=== PATIENT | male | born 1970 | race African-American/Black ===

== ENCOUNTER 2016-12-27 12:26 | Observation (INO) | payer BC, OTHER ==
[2016-12-27 12:32] VITALS: BMI 23.8
--- NOTE | 2016-12-27 12:57 | PDOC ---
History of Present Illness - General Chief Complaint: Pain Stated Complaint: SOB, RT LEG PAIN Time Seen by Provider: 12/27/16 12:40 History Source: Patient - History of Present Illness Timing/Duration: other Severity: moderate Associated Symptoms: reports: shortness of breath. denies: chest pain, fever/ chills Past History - Past Medical History Allergies/Adverse Reactions: Allergies Allergy/AdvReac Type Severity Reaction Status Date / Time acetaminophen [From Tylenol] Allergy Severe Difficulty Verified 12/27/16 12:32 Breathing aspirin Allergy Severe Difficulty Verified 12/27/16 12:32 Breathing hydromorphone HCl Allergy Severe Difficulty Verified 12/27/16 12:32 [From Dilaudid] Breathing ibuprofen Allergy Severe Swelling Verified 12/27/16 12:32 ketorolac tromethamine Allergy Severe Swelling Verified 12/27/16 12:32 [From Toradol] oxycodone HCl [From Percocet] Allergy Severe Swelling Verified 12/27/16 12:32 Penicillins Allergy Severe Swelling Verified 12/27/16 12:32 tramadol HCl [From Ultram] Allergy Verified 12/27/16 12:32 Home Medications: Ambulatory Orders Albuterol Sulfate Inhaler - [Ventolin HFA Inhaler -] 1 - 2 inh PO QID 07/17/14 Metoprolol Tartrate [Lopressor -] 100 mg PO BID 07/17/14 Asthma: Yes Cardiac Disorders: Yes (mitral valve prolapse) HTN: Yes Other medical history: DVT, - Surgical History Cardiac Surgery: Yes (ALONZO FILTER x2) - Immunization History Immunization Up to Date: Yes - Psycho/Social/Smoking Cessation Hx Anxiety: No Suicidal Ideation: No Smoking Status: No Smoking History: Never smoked Have you smoked in the past 12 months: No Number of Cigarettes Smoked Daily: 0 Hx Alcohol Use: No Drug/Substance Use Hx: No Substance Use Type: None Hx Substance Use Treatment: No Review of Systems - Review of Systems Constitutional: No: Chills, Fever Respiratory: Yes: Shortness of Breath Cardiac (ROS): No: Chest Pain, Lightheadedness, Palpitations ABD/GI: No: Nausea, Vomiting *Physical Exam - Vital Signs Last Vital Signs Temp Pulse Resp BP Pulse Ox 97.6 F 82 20 167/102 100 12/27/16 12:28 12/27/16 12:28 12/27/16 12:28 12/27/16 12:28 12/27/16 12:28 - Physical Exam General Appearance: Yes: Appropriately Dressed. No: Apparent Distress HEENT: positive: Normal Voice Neck: positive: Supple Respiratory/Chest: positive: Lungs Clear, Normal Breath Sounds. negative: Respiratory Distress Cardiovascular: positive: Regular Rate, S1, S2 Gastrointestinal/Abdominal: positive: Soft. negative: Tender Extremity: positive: Tender (to R groin, no swelling, no calf tenderness) Integumentary: positive: Dry, Warm, Other (pedal pulses intact) Neurologic: positive: Fully Oriented, Alert, Normal Mood/Affect Heart Score/ECG Review - ECG Intrepretation Comment:: 12/27/16 16:23 Twelve-lead EKG was performed and reviewed by me. There is normal sinus rhythm with a normal rate. The axis is normal. The intervals are normal. There are no ST or T wave abnormalities. Impression: Normal twelve-lead EKG ED Treatment Course - LABORATORY CBC & Chemistry Diagram: 12/27/16 14:20 12/27/16 14:20 - RADIOLOGY Radiology Studies Ordered: Category Date Time Status CHEST X-RAY PORTABLE* [RAD] Stat Radiology 12/27/16 12:41 Ordered Medical Decision Making - Medical Decision Making 12/27/16 12:51 46 yo M, h/o asthma, HTN, MVP, protein S and C deficiency, Factor 5 Leiden, recurrent DVTs and PEs, s/p IVC and SVC filters, endorses known DVT to R groin and states he had an "indeterminate VQ scan" (allergic to IV dye) 3 weeks ago during admission in [place], states he is not currently on anticoagulant secondary to GI bleed in the past and follows up with hematology at [place], now presents with pain to right groin since yesterday, no trauma. Denies h/o similar pain. Reports brief e/o sob while getting off bus today that has since resolved. No chest pain or palpitations. See exam R groin pain H/o prot C&S deficiency, DVT/PE, s/p IVC/SVC filters Not on AC 2/2 GIB Exam only remarkable for minimal ttp to R groin R/o recurrent DVT -US -labs Sob today Since improved Endorses "indeterminate" VQ scan 3 weeks ago at OSH Has filters in place Stable w/ clear chest/lungs on exam Suspicion for PE low at this point Will discuss further w/u with ED attg 12/27/16 14:30 12/27/16 15:35 12/27/16 15:38 US demonstrates R femoral vein stenosis but no definite DVT. Trop 0.06 w/ normal EKG. Will get 2nd trop in 6 hrs as d/w ED attg. Pt remains stable w/ no CP or SOB at this time. Anticipate discharge w/ vasc and hematology f/u 12/27/16 16:40 As per ED attg, given elevated trop and brief sob earlier, states pt should be admitted to obs to telemetry and serial trops 12/27/16 16:43 12/27/16 16:59 Case d/w hospitalist and pt admitted to tele/obs *DC/Admit/Observation/Transfer Diagnosis at time of Disposition: Vein stenosis, Shortness of breath - Discharge Dispostion Condition at time of disposition: Stable Admit: Yes - Referrals Referrals: Americo Wesley MD [Primary Care Provider] - - Patient Instructions Additional Instructions: Your right femoral vein shows stenosis on US today but no DVT. Please continue to f/u with your vascular and hematology doctors
[2016-12-27 14:36] LABS: EOSINOPHIL 5.8 % (0-4.5); MCH 23.4 pg (25.7-33.7)
[2016-12-27 14:38] LABS: BASOPHIL 1.4 % (0-2.0); MCHC 32.4 g/dl (32.0-35.9); MEAN CELL VOLUME 72.3 fl (80-96); MEAN PLT VOLUME 13.7 fl (7.5-11.1); RDW 18.6 % (11.9-15.9); WHITE BLOOD COUNT 3.7 K/mm3 (4.0-10.0)
[2016-12-27 14:59] LABS: INR 1.12 (0.82-1.09); PROTHROMBIN TIME (PATIENT) 12.3 SEC (9.98-11.88)
[2016-12-27 15:15] LABS: ALBUMIN 3.4 g/dl (3.4-5.0); ALK PHOS 95 U/L (45-117); ANION GAP 12 (8-16); BILIRUBIN,TOTAL 0.2 mg/dL (0.2-1.0); CALCIUM 8.3 mg/dL (8.5-10.1); CO2 23 mmol/L (21-32); CREATININE 0.8 mg/dL (0.7-1.3); GLUCOSE,RANDOM 80 mg/dL (74-106); SGOT/AST 25 U/L (15-37); SGPT/ALT 21 U/L (12-78); TOT PROT 8.4 g/dl (6.4-8.2)
[2016-12-27 15:17] LABS: TROPONIN I 0.06 ng/ml (0.00-0.05)
[2016-12-27 16:58] LABS: PLATELET COUNT 109 K/MM3 (134-434); PLATELET ESTIMATE DECREASED (NORMAL)
--- NOTE | 2016-12-27 17:18 | PDOC ---
*Physical Exam - Vital Signs Last Vital Signs Temp Pulse Resp BP Pulse Ox 97.6 F 82 20 167/102 100 12/27/16 12:28 12/27/16 12:28 12/27/16 12:28 12/27/16 12:28 12/27/16 12:28 ED Treatment Course - LABORATORY CBC & Chemistry Diagram: 12/27/16 14:20 12/27/16 14:20 - ADDITIONAL ORDERS Additional order review: Laboratory Results 12/27/16 12/27/16 12/27/16 14:20 14:20 13:30 INR 1.12 Sodium 137 Potassium 3.7 Chloride 102 Carbon Dioxide 23 Anion Gap 12 BUN 15 D Creatinine 0.8 Creat Clearance w eGFR > 60 Random Glucose 80 Calcium 8.3 L Total Bilirubin 0.2 D AST 25 D ALT 21 D Alkaline Phosphatase 95 Creatine Kinase 432 H D CK-MB (CK-2) 3.786 H Troponin I 0.06 H D Total Protein 8.4 H Albumin 3.4 Stool Occult Blood Negative 12/27/16 14:20 RBC 4.86 MCV 72.3 L MCHC 32.4 RDW 18.6 H D MPV 13.7 H D Neutrophils % 48.0 D Lymphocytes % 28.5 D Monocytes % 16.3 H Eosinophils % 5.8 H D Basophils % 1.4 - RADIOLOGY Radiology Studies Ordered: Category Date Time Status CHEST X-RAY PORTABLE* [RAD] Stat Radiology 12/27/16 12:41 Completed DUPLEX VASCUL US-1 LEG [US] Stat Ultrasound 12/27/16 13:09 Completed Medical Decision Making - Medical Decision Making 12/27/16 17:17 Pt refusing to be admitted, states 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 Please continue to f/u with your vascular and hematology doctors - Post Discharge Activity
--- NOTE | 2016-12-27 19:02 | PN ---
Teaching Attending Note Name of Resident: Josue Marinelli ATTENDING PHYSICIAN STATEMENT I saw and evaluated the patient. I reviewed the resident's note and discussed the case with the resident. I agree with the resident's findings and plan as documented. SUBJECTIVE: poor historian. had pain in R groin yesterday, he called his PCP but did not get an appointment . He called Dr. Wesley this am , who advised he should come to ER. coming from the bus on his way to ER he developed CP in middle of chest that was sharp , lasted 45 min . ( but he says the pain is still there ) . he denies any cough , fever chills, abd pain , dysuria , diarrhea , or other problems . denies exertional cp his SOB has resolved. He wants pain meds OBJECTIVE: NAD , comfortable in bed , MMM, eating dinner , cataract seen in L eye , EOMI CV: RRR, no MRG Lungs : CATB Abd :Soft , NT, ND , NL BS Ext : tenderness in R groin, no erythema or edema , no LAP . 2+ femoral pulses b/l . No edema on LE ext . chronic venous changes in LE. thick scared skin in wrists. radial pulse 2+ b/l ASSESSMENT AND PLAN: 46 y/o man with h/o Prtein C, S deficiency, facter V meleen def, h/o PEs and DVTs , s/p IVC and SVC filters , not on AC due to GI bleed, h/o HTN , and chronic pain who presented to ER fro R groin pain , onhis way he developed CP and SOB . 1- Cp and SOB . atypical for ACS . EKG with no ischemic changes. 1st trop 0.06 with no elevation in CkMb . despite his hx , PE is low in DDX and less likely as he has no tachycardia, hypotension , hypoxia , or tachypnea . His EKG has no S1QT3 sign . MS is in DDX - with this low clinical suspicion for PE , Will check D dimer. if elevated will order VQ scan - will check 2 more trop , and reepat EKG - tele 2- R groin pain : US with no acute DVT but stenosis in R common fem vein. This could be due to previous DVTs there is tenderness i groin but no erythema or masses felt . he has 2+ pulses - will consult Dr. Wesley to evaluate 3- HTN : lopressor 100 BID 4- PAin: will not give any pain meds as he has drug seeking behavious ( also allergic to tylenol, advil, ultram, morphine and dilaudid ) 5- DVT PX heparin sq .
[2016-12-27 20:33] VITALS: BP 162/97; PULSE 75; TEMP 98.1
--- NOTE | 2016-12-27 21:22 | HOSP ---
Subjective - Review of Symptoms Subjective: Spoke to pt. regarding signing out against medical advice States he will not stay if we do not give him Demerol for chest pain I told him this is NOT in the chest pain protocol I told him Risks of signing out AMA is possible cardiac arrest HE at that point started to yell and get up out of his chair almost lunging I told him that I will speak to him in a calm manner For my safety I left the room along with the resident and scribe. I told the nurse video manager of the situation and the possible need to call security. Physical Examination Vital Signs: Vital Signs Temperature 98.1 F 12/27/16 20:30 Pulse Rate 75 12/27/16 20:30 Respiratory Rate 19 12/27/16 20:30 Blood Pressure 162/97 12/27/16 20:30 O2 Sat by Pulse Oximetry (%) 98 12/27/16 20:30
--- NOTE | 2016-12-27 21:27 | HOSP ---
Physical Examination Vital Signs: Vital Signs Temperature 98.1 F 12/27/16 20:30 Pulse Rate 75 12/27/16 20:30 Respiratory Rate 19 12/27/16 20:30 Blood Pressure 162/97 12/27/16 20:30 O2 Sat by Pulse Oximetry (%) 98 12/27/16 20:30 Hospitalist Encounter Assessment: Was paged by the nurse to inform me that patient has chest pain of 9/10 intensity. Went to examine the patient immediately. Patient complained of severe chest pain, sharp in quality, 9/10 in intensity, non radiating, non reproducible, aggravated on movement and on deep inspiration. Denies sob, palpitation, cough, abdominal pain, nausea or vomiting. Patient said that he would like to get Meperidine for chest pain. 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 Vitals:- BP-132/85 mmHg P- 82bpm RR-14 Temp-97F Spo2-96% Physical Examination:- General: Patient lying comfortably in bed, awake, alert, oriented x 3 in no acute distress HEENT: Left eye cataract, EOM intact, No pallor, muddy sclera Chest: Surgical scar gina on the right side of the chest, no tenderness on palpation, B/L equal air entry, no wheeze or crackles. CVS: Regular rate, S1, S2, no murmur Abdomen: Soft, non tender, no organomegaly Informed Dr Rosas and examined the patient together. Patient mentioned that he has chest pain now and has had chest pain in the past. A/c to the patient, he goes to his appliance tester Dr. Membreno, in [place], when he has the chest pain, and the doctor would say "Go home, and take Meperidine for chest pain". Patient said his father who lives in [place] told him to leave the hospital and to go to his regular appliance tester. Patient mentioned "Nobody cares for my chest pain" He started getting aggressive when told Meperidine is not used for chest pain and is not a part of chest pain protocol. Patient started raising his voice demanding he needs Meperidine and was trying to get up from his chair, saying he wants to sign out AMA. That is when my attending along with the medical case worker left he room for safety. We emphasized to him the risk of leaving the hospital with active chest pain, could be worse like cardiac arrest, [place]. The assistant in nursing was informed and to call the security if needed. Illness, Investigation and Plan of care was explained to the patient. He verbalized understanding and signed out AMA. Case seen and discussed with Dr. Rosas. Visit type - Emergency Visit Emergency Visit: Yes ED Registration Date: 12/27/16 Care time: The patient presented to the Emergency Department on the above date and was hospitalized for further evaluation of their emergent condition. - New Patient This patient is new to me today: Yes Date on this admission: 12/27/16 - Critical Care Critical Care patient: No
[2016-12-27] MEDS ORDERED: HEPARIN NA (PORCINE) 5,000 UNITS/ML 1ML VIAL SQ SCH (22:00)
--- NOTE | 2016-12-28 07:23 | DS ---
Physical Examination Vital Signs: Findings/Remarks: pt was not seen or examined this am as he left AMA last night . Discharge Summary Reason For Visit: VEIN STENOSIS,SOB Hospital Course: Dc diagnoses : 1- chest pain and SOB 2- R groin pain ,with evidence of R femoral vein stenosis Hospital course : 46 y/o man with h/o Prtein C, S deficiency, facter V liden def, h/o PEs and DVTs , s/p IVC and SVC filters , not on AC due to GI bleed, h/o HTN , and chronic pain who presented to ER for R groin pain , on his way to the ER he developed CP and SOB . His Cp and SOB was thought to be atypical for ACS . EKG with no ischemic changes. 1st and 2nd trop were 0.06 with no elevation in CkMb . despite his hx , PE was though to be low in DDX and less likely as he has no tachycardia, hypotension , hypoxia , or tachypnea . His EKG has no S1QT3 sign . and the patient HAd shown a drug seeking behaviour . the plan was to check D dimer , if positive to go for a VQ scan . but he actually left AMA before this happened. ( of note he is allergic to IV dye ) For his R groin pain , he had US in ER with no acute DVT but stenosis in R common fem vein. This could be due to previous DVTs Dr. Wesley was consulted buthe did not get to see the pt before he left LAst night ( the night of the admission ) , he decided to leave AMA , although thte risks were explained to him by night team . condition: stable dispo : Home AMA F/u : PCP in [place], and DR. Wesley Condition: Stable - Instructions Diet, Activity, Other Instructions: Your right femoral vein shows stenosis on US today but no DVT. Please continue to f/u with your vascular and hematology doctors Referrals: Americo Wesley MD [Primary Care Provider] - Disposition: AGAINST MEDICAL ADVICE - Home Medications Comprehensive Discharge Medication List: Ambulatory Orders Albuterol Sulfate Inhaler - [Ventolin HFA Inhaler -] 1 - 2 inh PO QID 07/17/14 Metoprolol Tartrate [Lopressor -] 100 mg PO BID 07/17/14 This patient is new to me today: No Emergency Visit: Yes ED Registration Date: 12/27/16 Care time: The patient presented to the Emergency Department on the above date and was hospitalized for further evaluation of their emergent condition. Critical Care patient: No - Discharge Referral Referred to [facility] No
--- NOTE | 2016-12-28 09:34 | EKG ---
Test Reason : Blood Pressure : / mmHG Vent. Rate : 076 BPM Atrial Rate : 076 BPM P-R Int : 154 ms QRS Dur : 086 ms QT Int : 400 ms P-R-T Axes : 078 017 036 degrees QTc Int : 450 ms NORMAL SINUS RHYTHM WHEN COMPARED WITH ECG OF 17-FEB-2015 19:46, NO SIGNIFICANT CHANGE WAS FOUND Confirmed by NBA MIGUEL MD ([id number]) on 12/28/2016 9:34:04 AM Referred By: Confirmed By:NBA MIGUEL MD
== END 2016-12-27 21:30 | disposition left against medical advice (07) ==
LOC: JER 12:26 → JERBED 17:05 → J4W 21:13
PROVIDERS: ADMIT Internal Medicine; ATTEND Internal Medicine
DX: I87.1 Compression of vein (principal); R07.9 Chest pain, unspecified; D68.59 Other primary thrombophilia; D68.2 Hereditary deficiency of other clotting factors; Z86.718 Personal history of other venous thrombosis and embolism; I10 Essential (primary) hypertension; I34.1 Nonrheumatic mitral (valve) prolapse
CPT/HCPCS: 36415; 71010-TC; 80053; 82272; 82550; 82553; 84484; 85025; 85610; 93005; 93010; 93971-TC; 99282-25; G0378

== ENCOUNTER 2019-01-06 07:05 | Emergency (ER) | payer BC ==
[2019-01-06 07:50] VITALS: BP 164/98; PULSE 97; TEMP 98.3; BMI 23.8
--- NOTE | 2019-01-06 09:15 | PDOC ---
History of Present Illness - General Chief Complaint: Revisit,Wound Recheck Stated Complaint: SENT BY PCP FOR ABSCESS Time Seen by Provider: 01/06/19 07:45 History Source: Patient Exam Limitations: No Limitations - History of Present Illness Initial Comments: 01/06/19 09:00 48-year-old male presents to ED for evaluation of right shoulder wound. Patient states was at [facility] where he had left because they were not giving him antibiotics and felt he needed to come here where his surgeon is, Dr. Wesley. Patient denies fever but states chills patient also states minimal drainage from the site. Patient currently with a PICC line and was on an outpatient IV infusion program acquaints but states he has no way to get there. Patient denies limited range of motion of his right arm, swelling of the arm, or weakness. Timing/Duration: other Severity: mild Associated Symptoms: reports: fever/chills (chills) Past History - Travel Traveled outside of the country in the last 30 days: No Close contact w/someone who was outside of country & ill: No - Past Medical History Allergies/Adverse Reactions: Allergies Allergy/AdvReac Type Severity Reaction Status Date / Time acetaminophen [From Tylenol] Allergy Severe Difficulty Verified 01/06/19 07:26 Breathing aspirin Allergy Severe Difficulty Verified 01/06/19 07:26 Breathing hydromorphone HCl Allergy Severe Difficulty Verified 01/06/19 07:26 [From Dilaudid] Breathing ibuprofen Allergy Severe Swelling Verified 01/06/19 07:26 ketorolac tromethamine Allergy Severe Swelling Verified 01/06/19 07:26 [From Toradol] oxycodone HCl [From Percocet] Allergy Severe Swelling Verified 01/06/19 07:26 Penicillins Allergy Severe Swelling Verified 01/06/19 07:26 tramadol HCl [From Ultram] Allergy Verified 01/06/19 07:26 Home Medications: Ambulatory Orders Albuterol Sulfate Inhaler - [Ventolin HFA Inhaler -] 1 - 2 inh PO QID 07/17/14 Metoprolol Tartrate [Lopressor -] 100 mg PO BID 07/17/14 Asthma: Yes Cardiac Disorders: Yes (mitral valve prolapse) COPD: No HTN: Yes Other medical history: picc line for abx - Surgical History Cardiac Surgery: Yes (ALONZO FILTER x2) - Immunization History Immunization Up to Date: Yes - Suicide/Smoking/Psychosocial Hx Smoking Status: No Smoking History: Never smoked Have you smoked in the past 12 months: No Number of Cigarettes Smoked Daily: 0 Information on smoking cessation initiated: No Hx Alcohol Use: No Drug/Substance Use Hx: No Substance Use Type: None Hx Substance Use Treatment: No Patient Lives Alone: Yes Lives with/in: lives alone Review of Systems - Review of Systems Able to Perform ROS?: Yes Constitutional: Yes: Chills HEENTM: No: Symptoms Reported Respiratory: No: Symptoms reported Cardiac (ROS): No: Symptoms Reported ABD/GI: No: Symptoms Reported : No: Symptoms Reported Musculoskeletal: Yes: Muscle Pain (right deltoid) Integumentary: No: Erythema Neurological: No: Symptoms reported Endocrine: No: Symptoms Reported Hematologic/Lymphatic: Yes: See HPI *Physical Exam - Vital Signs Last Vital Signs Temp Pulse Resp BP Pulse Ox 98.3 F 97 H 16 164/98 100 01/06/19 07:22 01/06/19 07:22 01/06/19 07:22 01/06/19 07:22 01/06/19 07:22 - Physical Exam General Appearance: Yes: Nourished, Appropriately Dressed. No: Apparent Distress HEENT: negative: Pale Conjunctivae Neck: positive: Supple Respiratory/Chest: positive: Lungs Clear, Normal Breath Sounds. negative: Respiratory Distress, Accessory Muscle Use Cardiovascular: positive: Regular Rhythm, Regular Rate. negative: Murmur Gastrointestinal/Abdominal: positive: Soft. negative: Tenderness Integumentary: positive: Other (no edema) Neurologic: positive: Motor Strength 5/5 (ambulatory) Moderate Sedation - Procedure Monitoring Vital Signs: Procedure Monitoring Vital Signs Temperature 98.3 F 01/06/19 07:22 Pulse Rate 97 H 01/06/19 07:22 Respiratory Rate 16 01/06/19 07:22 Blood Pressure 164/98 01/06/19 07:22 O2 Sat by Pulse Oximetry (%) 100 01/06/19 07:22 Medical Decision Making - Medical Decision Making 01/06/19 08:30 Chief complaint patient requesting Dr. Wesley an IV antibiotics upon ED arrival. Patient with history of right arm abscess over the deltoid muscle has an IV infusion program in [place]. Exam: (Wound to the right deltoid with no palpable fluctuance or increased warmth suggestive of cellulitis or drainable abscess Plan: Labs secondary to complaints of chills and heart rate of 97. Patient also ordered for consultation to Dr. Wesley. 01/06/19 09:13 Attending was able to contact the IV infusion program in [place] who states patient may come to the program today to receive his IV antibiotics for the wound. Patient requesting medication transportation. Awaiting results. Patient currently eating breakfast resting in chair 01/06/19 09:33 *DC/Admit/Observation/Transfer Diagnosis at time of Disposition: Wound, open, arm, upper - Discharge Dispostion Disposition: HOME Condition at time of disposition: Good - Referrals - Patient Instructions Printed Discharge Instructions: DI for Wound Infection Additional Instructions: Please go directly to the program as instructed. Please keep area clean and dry. - Post Discharge Activity
== END 2019-01-06 10:00 | disposition home or self-care (01) ==
LOC: JER 07:05
DX: S41.101A Unspecified open wound of right upper arm, initial encounter (principal); X58.XXXA Exposure to other specified factors, initial encounter; Y93.9 Activity, unspecified; Y92.89 Other specified places as the place of occurrence of the external cause; Y99.8 Other external cause status; I10 Essential (primary) hypertension; J45.909 Unspecified asthma, uncomplicated; I05.0 Rheumatic mitral stenosis; Z95.828 Presence of other vascular implants and grafts
CPT/HCPCS: 99281-25

== ENCOUNTER 2019-06-27 16:51 | Emergency (ER) | payer BC | END 2019-06-27 21:20 | disposition home or self-care (01) | LOC: JER 16:51 ==

== ENCOUNTER 2019-10-04 13:15 | Emergency (ER) | payer BC ==
[2019-10-04 13:19] VITALS: BP 151/71; PULSE 78; TEMP 98.2; BMI 23.8
--- NOTE | 2019-10-04 14:07 | PDOC ---
History of Present Illness - General Chief Complaint: Respiratory Stated Complaint: DIFFICULTY BREATHING Time Seen by Provider: 10/04/19 13:47 Past History - Past Medical History Allergies/Adverse Reactions: Allergies Allergy/AdvReac Type Severity Reaction Status Date / Time acetaminophen [From Tylenol] Allergy Severe Difficulty Verified 10/04/19 13:17 Breathing aspirin Allergy Severe Difficulty Verified 10/04/19 13:17 Breathing hydromorphone HCl Allergy Severe Difficulty Verified 10/04/19 13:17 [From Dilaudid] Breathing ibuprofen Allergy Severe Swelling Verified 10/04/19 13:17 ketorolac tromethamine Allergy Severe Swelling Verified 10/04/19 13:17 [From Toradol] oxycodone HCl [From Percocet] Allergy Severe Swelling Verified 10/04/19 13:17 Penicillins Allergy Severe Swelling Verified 10/04/19 13:17 tramadol HCl [From Ultram] Allergy Verified 10/04/19 13:17 Home Medications: Ambulatory Orders Albuterol Sulfate Inhaler - [Ventolin HFA Inhaler -] 1 - 2 inh PO QID 07/17/14 Metoprolol Tartrate [Lopressor -] 100 mg PO BID 07/17/14 Asthma: Yes Cardiac Disorders: Yes (mitral valve prolapse) COPD: No HTN: Yes Other medical history: DVT - Surgical History Cardiac Surgery: Yes (ALONZO FILTER x2) - Immunization History Immunization Up to Date: Yes - Psycho Social/Smoking Cessation Hx Smoking Status: No Smoking History: Never smoked Have you smoked in the past 12 months: No Number of Cigarettes Smoked Daily: 0 Hx Alcohol Use: No Drug/Substance Use Hx: No Substance Use Type: None Hx Substance Use Treatment: No *Physical Exam - Vital Signs Last Vital Signs Temp Pulse Resp BP Pulse Ox 98.2 F 78 22 H 151/71 98 10/04/19 13:16 10/04/19 13:16 10/04/19 13:16 10/04/19 13:16 10/04/19 13:16 Heart Score/ECG Review - ECG Intrepretation Rhythm: Regular Rhythm - [place]: Normal - ECG Impressions Normal ECG: Yes Non-specific ST Elevation: No Ischemic Changes: No Bradycardia: No Torsades rylan Pointes: No WPW: No Medical Decision Making - Medical Decision Making 10/04/19 14:08 HPI: 48M PMH DVT s/p IVC filters, factor V leiden, and asthma presenting with sudden onset SOB that started after he got off transit 20 minutes prior. States pleuritic chest pain. Denies palpitations, f/c, lightheadedness, dizziness, abd pain, n/v. Pt states that he has bi-weekly episodes of SOB. ROS: CONSTITUTIONAL: Denies F / C HEENT: Denies headache, lightheadedness, dizziness RESP: Denies SOB CARD: Endorses pleuritic pain. Denies palpitations GI: Denies N / V / D, abdominal pain, bloody stool, inability to tolerate PO SKIN: Denies rashes NEURO: Denies numbness, tingling, weakness PE: SaO2 98% GEN: NAD, comfortable. AAOx3 HEENT: NC/AT, EOMI, PERRLA. No facial asymmetry. Moist mucous membranes. Normal voice. Supple neck w/ FROM CV: S1/S2, RRR, no m/r/g LUNG: Normal respiratory rate and effort on room air. CTAB, no wheezes, crackles , rales, rhonchi GI: soft, ndnt, +BS, no guarding, no rebound. No masses. Neg CVAT b/l EXTREMITIES: No LE edema. No calf tenderness. No obvious deformities of all extremities SKIN: warm, dry, normal turgor PSYCH: Guarded NEURO: Moving all extremities well. Ambulating w/ normal gait. MDM: 48M c/o SOB. Has bi-weekly episodes. Saturating well on room air w/ normal respiratory effort. Pt has care at [facility] home w/ close PCP, hematology, and pulmonary f/u, return precautions 10/04/19 15:52 pt still in ED refer to Dr. Corina Jones. Discharge - Discharge Information Problems reviewed: Yes Clinical Impression/Diagnosis: Shortness of breath Condition: Unchanged/Unknown Disposition: HOME - Admission No - Follow up/Referral Referrals: [facility] [place] [Provider Group] - Call tomorrow Izaiah Arriaga MD [Staff Physician] - - Patient Discharge Instructions Patient Printed Discharge Instructions: DI for Shortness of Breath Additional Instructions: Based on your history of deep vein thrombosis / pulmonary embolism you should be on daily anticoagulation. Follow up with your Data Processing Systems Consultant within 1 day. Follow up with your Plant Mechanic within 1 day. Follow up with your Primary Care Doctor within 1 day. Immediately return to the nearest Emergency Department if you experience worsening or concerning symptoms. - Post Discharge Activity
--- NOTE | 2019-10-04 14:52 | PDOC ---
Attending Attestation - Resident Resident Name: David Perez - ED Attending Attestation I have performed the following: I have examined & evaluated the patient, The case was reviewed & discussed with the resident, I agree w/resident's findings & plan - HPI HPI: 10/04/19 14:46 48-year-old male with history of hypercoagulable syndromes with DVT and PE in the past requiring anticoagulation most recently on daily doses of Alixtra, insurance stopped covering it, and his primary care docs/specialists from [facility] and [facility] have instructed him to go to [facility] ERs for his daily doses of alixtra. Pt's last dose was 3d ago, he was riding the bus and upon exiting felt acute on chronic shortness of breath, so he presents here. upon arrival, has no complaints. chronic pain, but no sob. no f/c/cough. after evaluation, pt requested to sign out AMA to go to his specialists' hospitals at [facility] or [facility]. - Physicial Exam PE: 10/04/19 14:50 vss, rr 16 speaking full sentences and jokin with staff. o2 sat 100% on room air , HR normal no jvd heart regular, lungs clear nvi distally - Medical Decision Making 10/04/19 14:50 48-year-old male with known hypercoagulable disorders, DVTs, PEs requiring lifelong anticoagulation currently under the care of vascular surgery at [facility] and pulmonary and hematology at [facility], unfortunately obtaining his blood thinner through emergency departments, presents now with bleeding episode of shortness of breath, resolved. He is hemodynamically stable here and well-appearing, ambulating about the emergency department speaking full sentences and joking with staff, he is asymptomatic and well- appearing. No indication for emergent work-up given known diagnoses Patient requests to be discharged so he can follow-up at his specialist hospitals for his dose of blood thinner and continued outpatient care Declined pain medication here or a/c Agrees with plan, will proceed directly to his specialist hospital, refuses to be transferred, understands return criteria. 10/04/19 14:57 pt subsequently opted to receive lovenox here, which was previously given in May visit without issue. also given oxycodone (allergy is to tylenol, not oxycodone). he has taken percocet in the past without reaction. Heart Score/ECG Review #1 ECG reviewed & interpreted by me at: 14:25 General ECG Interpretation: Sinus Rhythm, Normal Rate (69), Normal Intervals ( qtc 437), No acute ischemic changes
[2019-10-04] MEDS ORDERED: ENOXAPARIN NA (PORCINE) 100 MG/1 ML DISP.SYRIN SQ ONE ×2 (14:56→14:59)
[2019-10-04] MEDS ORDERED: oxyCODONE HCL 5 MG TABLET PO ONE (14:56)
[2019-10-04] MEDS ORDERED: oxyCODONE HCL 5 MG TABLET ONE (14:59)
--- NOTE | 2019-10-04 15:49 | EKG ---
Test Reason : Blood Pressure : / mmHG Vent. Rate : 069 BPM Atrial Rate : 069 BPM P-R Int : 158 ms QRS Dur : 088 ms QT Int : 408 ms P-R-T Axes : 060 012 049 degrees QTc Int : 437 ms POOR DATA QUALITY, INTERPRETATION MAY BE ADVERSELY AFFECTED NORMAL SINUS RHYTHM NORMAL ECG WHEN COMPARED WITH ECG OF 27-JUN-2019 18:31, NO SIGNIFICANT CHANGE WAS FOUND Confirmed by MD Lorenzo, Ryan ([id number]) on 10/04/2019 3:49:21 PM Referred By: Confirmed By:Ryan Ventura MD
== END 2019-10-04 15:07 | disposition home or self-care (01) ==
LOC: JER 13:15
PROC: 3E023GC Introduction of Other Therapeutic Substance into Muscle, Percutaneous Approach (ICD-10-PCS; principal; 2019-10-04)
DX: R06.02 Shortness of breath (principal); I10 Essential (primary) hypertension; D68.51 Activated protein C resistance; J45.909 Unspecified asthma, uncomplicated; Z86.711 Personal history of pulmonary embolism; Z86.718 Personal history of other venous thrombosis and embolism; Z79.01 Long term (current) use of anticoagulants; I34.1 Nonrheumatic mitral (valve) prolapse; Z95.828 Presence of other vascular implants and grafts; Z88.0 Allergy status to penicillin; Z88.5 Allergy status to narcotic agent; Z88.6 Allergy status to analgesic agent
CPT/HCPCS: 93005; 93010; 96372; 99281-25

== ENCOUNTER 2020-05-31 08:29 | Inpatient (IN) | payer BC, OTHER ==
--- NOTE | 2020-05-31 08:38 | PDOC ---
History of Present Illness - General Chief Complaint: Chest Pain Stated Complaint: CHEST PAIN Time Seen by Provider: 05/31/20 08:37 History Source: Patient Exam Limitations: No Limitations - History of Present Illness Initial Comments: 05/31/20 08:39 48yM PMH DVTs and PE s/p IVC filters off anticoagulation, factor V leiden, Protein C/S deficiency, and asthma presenting w sudden onset R sharp chest pain and SOB after stepping off public transit at 745am this morning. Request m orphine or hydromorphone to treat pain, says he's allergic (throat swelling) to multiple other meds inc tylenol, NSAIDs, and IV contrast. Hasn't taken any meds for symptoms before arriving in ED. States he gets PE when he's off anticoagulation. Shown copy of US study w +RLE clot from 05/12/20. Pt's vascular surgeon (name unknown, notes he associated w [facility] across the street from the hospital) ordered pt not to take Arixtra (fondaparinux) for the past 4wks, reason unknown. Also doesn't remember irradiated fuel handler name. Also has worsening BLE pain attributed to peripheral vascular disease following w vascular. Denies fever, cough, n/v, ABD pain. Past History - Medical History Allergies/Adverse Reactions: Allergies Allergy/AdvReac Type Severity Reaction Status Date / Time acetaminophen [From Tylenol] Allergy Severe Difficulty Verified 05/31/20 08:33 Breathing aspirin Allergy Severe Difficulty Verified 05/31/20 08:33 Breathing hydromorphone HCl Allergy Severe Difficulty Verified 05/31/20 08:33 [From Dilaudid] Breathing ibuprofen Allergy Severe Swelling Verified 05/31/20 08:33 ketorolac tromethamine Allergy Severe Swelling Verified 05/31/20 08:33 [From Toradol] oxycodone HCl [From Percocet] Allergy Severe Swelling Verified 05/31/20 08:33 Penicillins Allergy Severe Swelling Verified 05/31/20 08:33 tramadol HCl [From Ultram] Allergy Verified 05/31/20 08:33 Home Medications: Ambulatory Orders Albuterol Sulfate Inhaler - [Ventolin HFA Inhaler -] 1 - 2 inh PO QID 07/17/14 Metoprolol Tartrate [Lopressor -] 50 mg PO BID 07/17/14 Morphine Sulfate 15 mg PO DAILY PRN 05/31/20 Asthma: Yes Cardiac Disorders: Yes (mitral valve prolapse) COPD: No HTN: Yes - Surgical History Cardiac Surgery: Yes (ALONZO FILTER x2) - Immunization History Immunization Up to Date: Yes - Psycho-Social/Smoking History Smoking Status: No Smoking History: Never smoked Have you smoked in the past 12 months: No Number of Cigarettes Smoked Daily: 0 Review of Systems - Review of Systems Constitutional: No: Chills, Fever HEENTM: No: Eye Pain, Ear Discharge Respiratory: Yes: Shortness of Breath. No: Cough Cardiac (ROS): Yes: Chest Pain. No: Lightheadedness ABD/GI: No: Abdominal Distended, Constipated, Diarrhea, Nausea, Vomiting : No: Burning, Flank Pain Musculoskeletal: No: Back Pain, Joint Pain Integumentary: No: Bruising, Dryness Neurological: No: Headache, Seizure Psychiatric: No: Anxiety, Depression Endocrine: No: Intolerance to Cold, Intolerance to Heat Hematologic/Lymphatic: No: Anemia, Blood Clots *Physical Exam - Vital Signs Last Vital Signs Temp Pulse Resp BP Pulse Ox 98.4 F 82 18 148/89 99 05/31/20 08:30 05/31/20 13:00 05/31/20 13:00 05/31/20 13:00 05/31/20 13:00 - Physical Exam General Appearance: Yes: Nourished, Appropriately Dressed, Mild Distress HEENT: positive: EOMI, ANA MARÍA, Normal Voice, Hearing Grossly Normal. negative: Scleral Icterus (R), Scleral Icterus (L) Respiratory/Chest: positive: Chest Tender (R chest), Lungs Clear, Normal Breath Sounds. negative: Crackles, Rales, Rhonchi, Stridor, Wheezing Cardiovascular: positive: Regular Rhythm, S1, S2, Tachycardia. negative: Edema, Murmur Vascular Pulses: Dorsalis-Pedis (R): 1+, Doralis-Pedis (L): 1+ Gastrointestinal/Abdominal: positive: Normal Bowel Sounds, Flat, Soft. negative: Tender, Organomegaly Extremity: positive: Other (BLE flaking skin, warm, exquisitely tender to touch, +1 rosalba pitting edema to ankles, not numb) Integumentary: positive: Warm Neurologic: positive: Fully Oriented, Alert ED Treatment Course - LABORATORY CBC & Chemistry Diagram: 05/31/20 12:10 05/31/20 12:10 - ADDITIONAL ORDERS Additional order review: Laboratory Results 05/31/20 05/31/20 12:10 12:10 PT with INR 13.30 H INR 1.13 H PTT (Actin FS) 27.0 Sodium 133 L Potassium 4.2 Chloride 104 Carbon Dioxide 24 Anion Gap 4 L BUN 12.7 Creatinine 0.9 Est GFR (CKD-EPI)AfAm 115.83 Est GFR (CKD-EPI)NonAf 99.94 Random Glucose 74 Calcium 8.2 L Total Bilirubin 0.4 AST 41 H ALT 22 Alkaline Phosphatase 80 Creatine Kinase 425 H Creatine Kinase Index 0.6 CK-MB (CK-2) 2.6 Troponin I < 0.02 Total Protein 9.3 H Albumin 2.7 L 05/31/20 12:10 RBC 4.40 MCV 67.3 L MCHC 30.5 L RDW 20.3 H MPV 11.4 H D Neutrophils % 53.6 Lymphocytes % 24.5 Monocytes % 15.1 H Eosinophils % 3.3 Basophils % 3.5 H - RADIOLOGY Radiology Studies Ordered: Category Date Time Status CHEST - PA [RAD] Routine Radiology 05/31/20 13:25 Ordered CHEST X-RAY PORTABLE* [RAD] Stat Radiology 05/31/20 09:39 Completed DUPLEX VASCUL US-2LEGS [US] Stat Ultrasound 05/31/20 15:36 Ordered - Medications Given in the ED: ED Medications Discontinued Medications Generic Name Dose Route Start Last Admin Trade Name Freq PRN Reason Stop Dose Admin Lidocaine/Prilocaine 1 applic 05/31/20 09:53 05/31/20 10:02 Emla - TP 05/31/20 09:54 1 applic ONCE ONE Administration Methylprednisolone 32 mg 05/31/20 09:58 05/31/20 13:32 Medrol - PO 05/31/20 09:59 Not Given ONCE ONE Methylprednisolone 32 mg 05/31/20 10:45 05/31/20 11:00 Medrol - PO 05/31/20 10:46 32 mg ONCE ONE Administration Metoprolol Tartrate 50 mg 05/31/20 09:55 05/31/20 10:00 Lopressor - PO 05/31/20 09:56 50 mg ONCE ONE Administration Morphine Sulfate 4 mg 05/31/20 12:46 05/31/20 12:50 Morphine Injection - IVPUSH 05/31/20 12:47 4 mg ONCE ONE Administration Sodium Chloride 500 ml 05/31/20 12:01 05/31/20 12:00 Normal Saline - IV 05/31/20 12:02 500 ml ONCE ONE Administration Medical Decision Making - Medical Decision Making 05/31/20 09:15 EKG - sinus tachycardia, RBBB, HR 106, QTc 464, no ST changes CXR - no acute pathology CK 425 --- 48yM PMH DVTs and PE s/p IVC filters off anticoagulation, factor V leiden, Protein C/S deficiency, and asthma presenting w sudden onset R sharp chest pain and SOB after stepping off public transit at 745am Pain likely MSK (pain w palpation), mild rhabdo. Cannot r/o PE (pt off anticoagulation, recent +DVT study). Low concern for ACS (pain not exertional, neg trop) vs PNA (clear lungs) Pt refused tylenol, NSAIDs d/t allergies. Pt agreed to be admitted for PE r/o Given home lopressor, premedication w 32 solumedrol Has trouble with peripheral US guided IV access d/t thick skin, did not attempt IJ CVC d/t hx of IJ clots. Placed R calf PIV Consulted Dr Alcantar vascular - hasn't seen pt in years, denies taking pt off AC Dr Dotson - order echo, DVT US rosalba legs, anticoagulate for now, no V/Q scan needed lela Maru - order fondaparinux 7.5 qD Admitted m/s for chest pain, possible PE Discharge - Discharge Information Problems reviewed: Yes Clinical Impression/Diagnosis: Chest pain Qualifiers: Chest pain type: unspecified Qualified Code(s): R07.9 - Chest pain, unspecified - Follow up/Referral - Patient Discharge Instructions - Post Discharge Activity
[2020-05-31] MEDS ORDERED: LIDOCAINE 2.5%/PRILOCAINE 2.5% (5 Gram/TUBE) TP ONE ×2 (09:53→09:56)
[2020-05-31] MEDS ORDERED: METOPROLOL TARTRATE 50 MG TABLET (FP) PO ONE (09:55)
[2020-05-31] MEDS ORDERED: methylPREDNISolone 8 MG TABLET PO ONE (09:58)
[2020-05-31] MEDS ORDERED: METOPROLOL TARTRATE 50 MG TABLET (FP) ONE (10:03)
[2020-05-31] MEDS ORDERED: methylPREDNISolone 4 MG TABLET PO ONE (10:45)
--- NOTE | 2020-05-31 11:32 | PDOC ---
Documentation entered by Liset Camacho SCRIBE, acting as scribe for Kelly Boyce MD. Kelly Boyce MD: This documentation has been prepared by the Aicha bustillos Nirvannie, SCRIBE, under my direction and personally reviewed by me in its entirety. I confirm that the documentation accurately reflects all work, treatment, procedures, and medical decision making performed by me. Attending Attestation - Resident Resident Name: Jose Mariano - ED Attending Attestation I have performed the following: I have examined & evaluated the patient, The case was reviewed & discussed with the resident, I agree w/resident's findings & plan, Exceptions are as noted - HPI HPI: 05/31/20 09:39 The patient is a 48 year old male with a significant past medical history of DVTs/PE (s/p IVC filters not on anticoagulation, known DVT RLE 05/12/20), Factor V Leiden, Protein C/S deficiency, and asthma who presents to the ED with sudden onset right sided chest pain with associated shortness of breath. As per patient , her symptoms onset this morning at approximately 7:45am after coming off public transportation. Patient was recently placed on Arixtra by his vascular surgeon for unknown regions. Allergies: As per nursing notes. - Physicial Exam PE: 05/31/20 10:51 Agree with resident exam. Patient is alert and oriented and in no acute distress. Lungs are clear. Heart regular rate and rhythm, no murmurs. B/L LE--+ skin changes consistent with vascular insufficiency, + bilateral diffuse tenderness without swelling. - Medical Decision Making 05/31/20 10:53 Pt presents to the ED complaining of chest pain and shortness of breath that is consistent with prior episodes of PE. Patient has a longstanding history of DVT and PE, resistant to anticoagulation. History of HIT, has been on arixtra in the past. States that he has not been able to get his arixtra because his reporting consultant is on vacation. Patient has multiple visits to the ED and a history of leaving AMA and eloping. Has DVT on US from 05/12 on LLE. Differential includes PE, ACS. Plan is for labs and VQ scan. Patient is an extremely hard stick and we have been unable to get IV access despite multiple attempts by multiple physicians. History of severe allergy to IV contrast. Will check labs and VQ scan, likely admit to medicine for likely PE. 05/31/20 11:20 05/31/20 11:29 Discharge - Discharge Information Problems reviewed: Yes Clinical Impression/Diagnosis: Chest pain Qualifiers: Chest pain type: unspecified Qualified Code(s): R07.9 - Chest pain, unspecified Condition: Stable Disposition: AGAINST MEDICAL ADVICE - Follow up/Referral - Patient Discharge Instructions - Post Discharge Activity
[2020-05-31] MEDS ORDERED: SODIUM CHLORIDE 0.9% 500 ML INFUS.BAG IV ONE (12:01)
[2020-05-31 12:31] LABS: INR 1.13 (0.83-1.09); PROTHROMBIN TIME (PATIENT) 13.3 SEC (9.7-13.0)
[2020-05-31] MEDS ORDERED: morphine CARPU-JECT 4 MG/1 ML DISP.SYRIN IVPUSH ONE ×2 (12:46→15:37)
[2020-05-31 12:50] LABS: ALBUMIN 2.7 g/dl (3.4-5.0); ALK PHOS 80 U/L (45-117); ANION GAP 4 MMOL/L (8-16); BILIRUBIN,TOTAL 0.4 mg/dL (0.2-1); BLOOD UREA NITROGEN 12.7 mg/dL (7-18); CALCIUM 8.2 mg/dL (8.5-10.1); CHLORIDE 104 mmol/L (98-107); CO2 24 mmol/L (21-32); CREATININE 0.9 mg/dL (0.55-1.3); GLUCOSE,RANDOM 74 mg/dL (74-106); POTASSIUM 4.2 mmol/L (3.5-5.1); SGOT/AST 41 U/L (15-37); SGPT/ALT 22 U/L (13-61); SODIUM 133 mmol/L (136-145); TOT PROT 9.3 g/dl (6.4-8.2)
[2020-05-31] MEDS ORDERED: morphine SULFATE 4 MG/ML VIAL ONE (13:00)
[2020-05-31 13:11] LABS: BASO % 3.5 % (0-2.0); EOS % 3.3 % (0-4.5); HEMATOCRIT 29.6 % (35.4-49); LYMPH % 24.5 % (8-40); MCH 20.5 pg (25.7-33.7); MCHC 30.5 g/dl (32.0-35.9); MEAN CELL VOLUME 67.3 fl (80-96); MEAN PLT VOLUME 11.4 fl (7.5-11.1); MONO % 15.1 % (3.8-10.2); NEUT % 53.6 % (42.8-82.8); PLATELET COUNT 123 K/MM3 (134-434); RDW 20.3 % (11.9-15.9); WHITE BLOOD COUNT 3.7 K/mm3 (4.0-10.0)
[2020-05-31 13:30] LABS: ANISOCYTOSIS 1+; MACROCYTOSIS 0; PLATELET ESTIMATE DECREASED
[2020-05-31] MEDS ORDERED: FONDAPARINUX SODIUM 5 MG/0.4 ML DISP.SYRIN SQ SCH (15:15)
--- NOTE | 2020-05-31 15:24 | HP ---
CHIEF COMPLAINT: chest pain PCP: [facility] HISTORY OF PRESENT ILLNESS: 49M w/ pmhx of DVT/PE (has IVC filter), protein C/S deficiency, Factor V Leiden, and asthma presents in the ED with sudden onset non-radiating substernal chest pain and shortness of breath. States he was stepping off public transit when his symptoms acutely started. Of note, he was supposed to be Arixtra for AC given his significant PE history, however has been having insurance problems and was unable to obtain his meds. States he was seen last week at another ED in [place], [place], was able to receive his AC. He was also seen at another ED 2 days ago which he also was able to receive AC. Pt has a recent LE duplex with report showing L common femoral DVT. Also states he had an echo done at [facility] that showed R heart strain. ER course was notable for: (1) Initial VS wnl, trops neg x1, HD stable (2) CXR neg (3) Pulm, Heme consulted Recent Travel: Denies PAST MEDICAL HISTORY: As per HPI PAST SURGICAL HISTORY: IVC filter Social History: Smoking: Denies Alcohol: Denies Drugs: Denies Allergies acetaminophen [From Tylenol] Allergy (Severe, Verified 05/31/20 08:33) Difficulty Breathing aspirin Allergy (Severe, Verified 05/31/20 08:33) Difficulty Breathing hydromorphone HCl [From Dilaudid] Allergy (Severe, Verified 05/31/20 08:33) Difficulty Breathing ibuprofen Allergy (Severe, Verified 05/31/20 08:33) Swelling ketorolac tromethamine [From Toradol] Allergy (Severe, Verified 05/31/20 08:33) Swelling oxycodone HCl [From Percocet] Allergy (Severe, Verified 05/31/20 08:33) Swelling Penicillins Allergy (Severe, Verified 05/31/20 08:33) Swelling tramadol HCl [From Ultram] Allergy (Verified 05/31/20 08:33) HOME MEDICATIONS: Home Medications Medication Instructions Recorded Albuterol Sulfate Inhaler - 1 - 2 inh PO QID 07/17/14 [Ventolin HFA Inhaler -] Metoprolol Tartrate [Lopressor -] 50 mg PO BID 07/17/14 Morphine Sulfate 15 mg PO DAILY PRN 05/31/20 REVIEW OF SYSTEMS CONSTITUTIONAL: Absent: fever, chills, diaphoresis, generalized weakness, malaise, loss of appetite, weight change HEENT: Absent: rhinorrhea, nasal congestion, throat pain, throat swelling, difficulty swallowing, mouth swelling, ear pain, eye pain, visual changes CARDIOVASCULAR: chest pain Absent: syncope, palpitations, irregular heart rate, lightheadedness, peripheral edema RESPIRATORY: shortness of breath Absent: cough, , dyspnea with exertion, orthopnea, wheezing, stridor, hemoptysis GASTROINTESTINAL: Absent: abdominal pain, abdominal distension, nausea, vomiting, diarrhea, constipation, melena, hematochezia GENITOURINARY: Absent: dysuria, frequency, urgency, hesitancy, hematuria, flank pain, genital pain MUSCULOSKELETAL: b/l LE pain Absent: myalgia, arthralgia, joint swelling, back pain, neck pain SKIN: Absent: rash, itching, pallor HEMATOLOGIC/IMMUNOLOGIC: Absent: easy bleeding, easy bruising, lymphadenopathy, frequent infections ENDOCRINE: Absent: unexplained weight gain, unexplained weight loss, heat intolerance, cold intolerance NEUROLOGIC: Absent: headache, focal weakness or paresthesias, dizziness, unsteady gait, seizure, mental status changes, bladder or bowel incontinence PSYCHIATRIC: Absent: anxiety, depression, suicidal or homicidal ideation, hallucinations. PHYSICAL EXAMINATION Vital Signs - 24 hr 05/31/20 05/31/20 08:30 13:00 Temperature 98.4 F Pulse Rate 108 H Pulse Rate [ 82 Apical] Respiratory 21 H 18 Rate Blood Pressure 187/105 H Blood Pressure 148/89 [Right Arm] O2 Sat by Pulse 96 99 Oximetry (%) GENERAL: AAOx3. NAD. HEENT: AT/NC. EOMI. Dry mucus membranes. NECK: Normal range of motion, supple without lymphadenopathy, JVD, or masses. LUNGS: CTA B/L, No wheezes noted. HEART: RRR. Normal S1, S2. ABDOMEN: Soft, NT/ND. Normoactive Bs. MUSCULOSKELETAL: Moves all extremities EXTREMITIES: No peripheral edema noted. +Sienna's sign NEUROLOGICAL: Cranial nerves II-XII intact. Normal speech. SKIN: Dry dark scaly skin on b/l LE, peeling. No ulcers noted. Tenderness to b/l LE Laboratory Results - last 24 hr 05/31/20 05/31/20 05/31/20 12:10 12:10 12:10 WBC 3.7 L RBC 4.40 Hgb 9.0 L Hct 29.6 L D MCV 67.3 L MCH 20.5 L D MCHC 30.5 L RDW 20.3 H Plt Count 123 L MPV 11.4 H D Absolute Neuts (auto) 2.0 Neutrophils % 53.6 Lymphocytes % 24.5 Monocytes % 15.1 H Eosinophils % 3.3 Basophils % 3.5 H Nucleated RBC % 0 Hypochromia 1+ Platelet Estimate Decreased Polychromasia 0 Poikilocytosis 0 Anisocytosis 1+ Microcytosis 1+ Macrocytosis 0 PT with INR 13.30 H INR 1.13 H PTT (Actin FS) 27.0 Sodium 133 L Potassium 4.2 Chloride 104 Carbon Dioxide 24 Anion Gap 4 L BUN 12.7 Creatinine 0.9 Est GFR (CKD-EPI)AfAm 115.83 Est GFR (CKD-EPI)NonAf 99.94 Random Glucose 74 Calcium 8.2 L Total Bilirubin 0.4 AST 41 H ALT 22 Alkaline Phosphatase 80 Creatine Kinase 425 H Creatine Kinase Index 0.6 CK-MB (CK-2) 2.6 Troponin I < 0.02 Total Protein 9.3 H Albumin 2.7 L ASSESSMENT/PLAN: 49M w/ pmhx of DVT/PE (has IVC filter), protein C/S deficiency, Factor V Leiden, and asthma presents in the ED with sudden onset non-radiating substernal chest pain and shortness of breath admitted for PE. #PE; in setting of hx of DVT/PE (s/p filter), multiple blood clotting disorders, noncompliance with AC -Wells Score for PE 9; given high suspicion of PE will need to treat empirically -Unable to do CTA chest due to contrast allergy. Per pulm, V/Q not needed at this time -Heme consulted; recommend to give Arixtra -Pulm consulted; do not suspect hemodynamically significant PE or SVC obstruction as patient BP stable and not hypoxic -Echo ordered to r/o R heart strain #Chronic Venous Stasis; r/o PVD -Vasc surg consulted #Hx of Protein C/S deficiency, Factor V Leiden; now with PE. -cont AC -OP follow up #Prophylaxis DVT: Cont Arixtra #FEN -PO hydration -recheck lytes in AM -Regular diet Dispo -admit to tele -meds to be reconciled by pharmacy (was closed when I called) Visit type - Emergency Visit Emergency Visit: Yes ED Registration Date: 05/31/20 Care time: The patient presented to the Emergency Department on the above date and was hospitalized for further evaluation of their emergent condition. - New Patient This patient is new to me today: Yes Date on this admission: 05/31/20 - Critical Care Critical Care patient: No ATTENDING PHYSICIAN STATEMENT I saw and evaluated the patient. I reviewed the resident's note and discussed the case with the resident. I agree with the resident's findings and plan as documented. SUBJECTIVE: OBJECTIVE: ASSESSMENT AND PLAN:
[2020-05-31] MEDS ORDERED: MORPHINE SULFATE 2 MG/ML VIAL ONE (15:51)
--- NOTE | 2020-05-31 16:05 | CON.PULM ---
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 Wesley),, supposed asthma (only on PRN Albuterol), and HTN. Reports being maintained on Arixtra. Apparently having insurance issues and has not had access to his medications for almost 2 weeks. Outside Doppler study that reveals left common femoral DVT (05/12/2020). No fever or chills. No reported COVID19 infection or exposure. Admitted via the ER due to CP. No hemoptysis. Patient seen in the ER comfortable on RA. He does not have tachycardia. At present he is CP free. Reports that he is unsure if his symptoms are related to AE of Asthma. - History Source History Provided By: Patient, Medical Record Limitations to Obtaining History: No Limitations - Past Medical History Pulmonary: Yes: Asthma (h/o astma-not currently symptomatic), Bronchitis, Pneumonia, Pulmonary Embolus. 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 History of Recent Travel: Yes ([place]) Home Medications - Allergies Allergies/Adverse Reactions: Allergies Allergy/AdvReac Type Severity Reaction Status Date / Time acetaminophen [From Tylenol] Allergy Severe Difficulty Verified 05/31/20 08:33 Breathing aspirin Allergy Severe Difficulty Verified 05/31/20 08:33 Breathing hydromorphone HCl Allergy Severe Difficulty Verified 05/31/20 08:33 [From Dilaudid] Breathing ibuprofen Allergy Severe Swelling Verified 05/31/20 08:33 ketorolac tromethamine Allergy Severe Swelling Verified 05/31/20 08:33 [From Toradol] oxycodone HCl [From Percocet] Allergy Severe Swelling Verified 05/31/20 08:33 Penicillins Allergy Severe Swelling Verified 05/31/20 08:33 tramadol HCl [From Ultram] Allergy Verified 05/31/20 08:33 - Home Medications Home Medications: Ambulatory Orders Albuterol Sulfate Inhaler - [Ventolin HFA Inhaler -] 1 - 2 inh PO QID 07/17/14 Metoprolol Tartrate [Lopressor -] 50 mg PO BID 07/17/14 Morphine Sulfate 15 mg PO DAILY PRN 05/31/20 Review of Systems - Review of Systems Constitutional: reports: Malaise. denies: Chills, Fever, Night Sweats, Unintentional Wgt. Loss Eyes: reports: No Symptoms HENT: reports: No Symptoms Neck: reports: No Symptoms Cardiovascular: reports: Chest Pain. denies: Edema, Palpitations Respiratory: reports: Cough, SOB, SOB on Exertion, Wheezing. denies: Hemoptysis, Orthopnea, PND, Snoring Gastrointestinal: reports: No Symptoms Genitourinary: reports: No Symptoms Breasts: reports: No Symptoms Reported Musculoskeletal: reports: Back Pain, Extremity Pain, Joint Pain, Joint Swelling, Muscle Pain, Muscle Cramps, Muscle Weakness Integumentary: reports: Change in Color Neurological: reports: No Symptoms Endocrine: reports: No Symptoms Hematology/Lymphatic: reports: No Symptoms Psychiatric: reports: No Symptoms Physical Exam Vital Sings: Vital Signs Temperature 98.4 F 05/31/20 08:30 Pulse Rate 82 05/31/20 13:00 Respiratory Rate 18 05/31/20 13:00 Blood Pressure 148/89 05/31/20 13:00 O2 Sat by Pulse Oximetry (%) 99 05/31/20 13:00 Constitutional: Yes: No Distress, Calm Eyes: Yes: Conjunctiva Clear, EOM Intact HENT: Yes: Atraumatic, Normocephalic Neck: Yes: Supple Cardiovascular: Yes: Regular Rate and Rhythm Respiratory: Yes: Cough, Diminished. No: Accessory Muscle Use, On Nasal O2, Rales, Rhonchi, SOB, SOB on Exertion, Stridor, Tachypnea, Wheezes ...Inspection: Yes: WNL ...Clubbing: No Gastrointestinal: Yes: Normal Bowel Sounds, Soft Extremities: Yes: Cool, Delayed Capillary Refill, Erythema Edema: No Peripheral Pulses WNL: No (diminished ) Integumentary: Yes: Erythema, Skin Tear, Venous Stasis Changes Neurological: Yes: Alert, Oriented ...Motor Strength: WNL Psychiatric: Yes: Alert, Oriented Labs: CBC, BMP 05/31/20 12:10 05/31/20 12:10 Imaging - Results Chest X-ray: Report Reviewed, Image Reviewed Problem List - Problems (1) Pulmonary embolism Code(s): I26.99 - OTHER PULMONARY EMBOLISM WITHOUT ACUTE COR PULMONALE (2) DVT (deep venous thrombosis) Code(s): I82.409 - ACUTE EMBOLISM AND THOMBOS UNSP DEEP VN UNSP LOWER EXTREMITY (3) Dvt femoral (deep venous thrombosis) Code(s): I82.419 - ACUTE EMBOLISM AND THROMBOSIS OF UNSPECIFIED FEMORAL VEIN (4) Chest pain Code(s): R07.9 - CHEST PAIN, UNSPECIFIED Qualifiers: Chest pain type: unspecified Qualified Code(s): R07.9 - Chest pain, unspecified (5) Anemia Code(s): D64.9 - ANEMIA, UNSPECIFIED (6) Asthma Code(s): J45.909 - UNSPECIFIED ASTHMA, UNCOMPLICATED (7) Atypical chest pain Code(s): R07.89 - OTHER CHEST PAIN (8) Bacteremia Code(s): R78.81 - BACTEREMIA (9) DVT prophylaxis Code(s): NXS6502 - (10) Factor V Leiden Code(s): D68.51 - ACTIVATED PROTEIN C RESISTANCE (11) Hypercoagulable state Code(s): D68.59 - OTHER PRIMARY THROMBOPHILIA (12) Hypertension Code(s): I10 - ESSENTIAL (PRIMARY) HYPERTENSION (13) Shortness of breath Code(s): R06.02 - SHORTNESS OF BREATH (14) Vein stenosis Code(s): I87.1 - COMPRESSION OF VEIN Assessment/Plan Patient with history of non-compliance. Advise about possibility of due to AC non-compliance. Continue AC. Social service for medication assistance. Supplemental O2 as needed At this time he is not hypoxic and HR is normal and appears clinically stable. Do not suspect hemodynamically significant PE or SVC obstruction. No clear indication for V/Q scanning at this time. ECHO is being performed at the bedside. Patient reports that he had a recent ECHO at [facility] that revealed elevated right heart pressures. No smoking was discussed. Will follow Thank you. Dr Dotson
--- NOTE | 2020-05-31 18:35 | PN ---
Teaching Attending Note Name of Resident: Fiordaliza Norton ATTENDING PHYSICIAN STATEMENT I saw and evaluated the patient. I reviewed the resident's note and discussed the case with the resident. I agree with the resident's findings and plan as documented. SUBJECTIVE: The patient is a 48 year old male with a significant past medical history of DVTs/PE (s/p IVC filters not on anticoagulation, known DVT RLE 05/12/20), Factor V Leiden, Protein C/S deficiency, and asthma who presents to the ED with sudden onset right sided chest pain with associated shortness of breath. As per patient, her symptoms onset this morning at approximately 7:45am after coming off public transportation. Patient was recently placed on Arixtra by his vascular surgeon for unknown re OBJECTIVE: Vital Signs Period Temp Pulse Resp BP Sys/Pittman Pulse Ox Last 24 Hr 98.4 F 82-108 18-21 148-187/89-105 96-99 General Appearance: Yes: Nourished, Appropriately Dressed, Mild Distress HEENT: positive: EOMI, ANA MARÍA, Normal Voice, Hearing Grossly Normal. negative: Scleral Icterus (R), Scleral Icterus (L) Respiratory/Chest: positive: Chest Tender (R chest), Lungs Clear, Normal Breath Sounds. negative: Crackles, Rales, Rhonchi, Stridor, Wheezing Cardiovascular: positive: Regular Rhythm, S1, S2, Tachycardia. negative: Edema, Murmur Vascular Pulses: Dorsalis-Pedis (R): 1+, Doralis-Pedis (L): 1+ Gastrointestinal/Abdominal: positive: Normal Bowel Sounds, Flat, Soft. negative: Tender, Organomegaly Extremity: positive: Other (BLE flaking skin, warm, exquisitely tender to touch, +1 rosalba pitting edema to ankles, not numb)He has diffuse eczema on his extremities Integumentary: positive: Warm Neurologic: positive: Fully Oriented, Alert ASSESSMENT AND PLAN: 49M w/ pmhx of DVT/PE (has IVC filter), protein C/S deficiency, Factor V Leiden, and asthma presents in the ED with sudden onset non-radiating substernal chest pain and shortness of breath admitted for PEAcute pulmonary embolism, DVT, eczema, protein C&S deficiency and factor V Leiden history of on noncompliant with the medications Start Arixtra will get vascular evaluation resume his home medications.
[2020-05-31] MEDS: FONDAPARINUX SODIUM 2.5 MG/0.5 ML DISP.SYRIN SQ SCH (18:44)
[2020-05-31] MEDS: FONDAPARINUX SODIUM 5 MG/0.4 ML DISP.SYRIN SQ SCH (18:45)
[2020-05-31] MEDS ORDERED: MORPHINE SULFATE 2 MG/ML VIAL IVPUSH ONE (21:32)
[2020-06-01 01:54] VITALS: BMI 24.5
[2020-06-01] MEDS ORDERED: LIDOCAINE 5% TOPICAL PATCH TP ONE (02:45)
[2020-06-01] MEDS ORDERED: MORPHINE SULFATE 2 MG/ML VIAL IVPUSH ONE (03:05)
[2020-06-01] MEDS ORDERED: PT OWN MED DRAWER 7, Y5N ONE (09:35)
--- NOTE | 2020-06-01 10:47 | PN ---
Progress Note, Physician - Current Medication List Current Medications: Active Medications Fondaparinux (Arixtra (Restricted) -) 2.5 mg SQ DAILY [facility] Last Admin: 05/31/20 18:44 Dose: 2.5 mg Documented by: Fondaparinux (Arixtra (Restricted) -) 5 mg SQ DAILY [facility] Last Admin: 05/31/20 18:45 Dose: 5 mg Documented by: Miscellaneous (Lidoderm Patch Removal) 1 each ONCE ONE Stop: 06/01/20 14:46 - Objective Vital Signs: Vital Signs Temperature 98.2 F 05/31/20 21:00 Pulse Rate 89 05/31/20 21:00 Respiratory Rate 18 05/31/20 21:00 Blood Pressure 149/90 05/31/20 21:00 O2 Sat by Pulse Oximetry (%) 99 05/31/20 21:00 Labs: CBC, BMP 05/31/20 12:10 05/31/20 12:10 INR, PTT INR 1.13 (0.83-1.09) H 05/31/20 12:10 Assessment/Plan Problem List - Problems (1) Pulmonary embolism Code(s): I26.99 - OTHER PULMONARY EMBOLISM WITHOUT ACUTE COR PULMONALE (2) DVT (deep venous thrombosis) Code(s): I82.409 - ACUTE EMBOLISM AND THOMBOS UNSP DEEP VN UNSP LOWER EXTREMITY (3) Dvt femoral (deep venous thrombosis) Code(s): I82.419 - ACUTE EMBOLISM AND THROMBOSIS OF UNSPECIFIED FEMORAL VEIN (4) Chest pain Code(s): R07.9 - CHEST PAIN, UNSPECIFIED Qualifiers: Chest pain type: unspecified Qualified Code(s): R07.9 - Chest pain, unspecified (5) Anemia Code(s): D64.9 - ANEMIA, UNSPECIFIED (6) Asthma Code(s): J45.909 - UNSPECIFIED ASTHMA, UNCOMPLICATED (7) Atypical chest pain Code(s): R07.89 - OTHER CHEST PAIN (8) Bacteremia Code(s): R78.81 - BACTEREMIA (9) DVT prophylaxis Code(s): [id number] - (10) Factor V Leiden Code(s): D68.51 - ACTIVATED PROTEIN C RESISTANCE (11) Hypercoagulable state Code(s): D68.59 - OTHER PRIMARY THROMBOPHILIA (12) Hypertension Code(s): I10 - ESSENTIAL (PRIMARY) HYPERTENSION (13) Shortness of breath Code(s): R06.02 - SHORTNESS OF BREATH (14) Vein stenosis Code(s): I87.1 - COMPRESSION OF VEIN Assessment/Plan Patient with history of non-compliance. Advise about possibility of due to AC non-compliance. Continue AC. Social service for medication assistance. Supplemental O2 as needed At this time he is not hypoxic and HR is normal and appears clinically stable. Do not suspect hemodynamically significant PE or SVC obstruction. No clear indication for V/Q scanning at this time. ECHO is being performed at the bedside. Patient reports that he had a recent ECHO at [facility] that revealed elevated right heart pressures. No smoking was discussed. Dr Rose
[2020-06-01 10:48] VITALS: BP 145/82; PULSE 88; TEMP 98.1
--- NOTE | 2020-06-01 10:51 | EKG ---
Test Reason : Blood Pressure : / mmHG Vent. Rate : 106 BPM Atrial Rate : 106 BPM P-R Int : 144 ms QRS Dur : 086 ms QT Int : 350 ms P-R-T Axes : 071 023 061 degrees QTc Int : 464 ms SINUS TACHYCARDIA WHEN COMPARED WITH ECG OF 04-OCT-2019 14:25, VENT. RATE HAS INCREASED BY 37 BPM Confirmed by NBA MIGUEL MD ([id number]) on 06/01/2020 10:51:13 AM Referred By: Confirmed By:NBA MIGUEL MD
[2020-06-01] MEDS: FONDAPARINUX SODIUM 5 MG/0.4 ML DISP.SYRIN SQ SCH (11:16)
[2020-06-01] MEDS: FONDAPARINUX SODIUM 2.5 MG/0.5 ML DISP.SYRIN SQ SCH (11:16)
--- NOTE | 2020-06-01 14:35 | DS ---
Physical Exam: SUBJECTIVE: Complains of LE pain and R sided pleuritic chest pain. No SOB/cough/sputum/fever/chills. OBJECTIVE: Afebrile, Hemodynamically Stable. Last Vital Signs Temp Pulse Resp BP Pulse Ox 98.1 F 88 18 145/82 100 06/01/20 10:00 06/01/20 10:00 06/01/20 10:00 06/01/20 10:00 06/01/20 09:00 HEENT - Atraumatic, Normocephalic. Heart - S1, S2, RRR Lungs - clear to auscultation Abdomen - Soft, non-tender. Bowel Sounds normal. Extremities - no edema, bilateral calf tenderness. Chronic skin changes. Laboratory Tests 05/31/20 05/31/20 05/31/20 12:10 12:10 12:10 WBC 3.7 L RBC 4.40 Hgb 9.0 L Hct 29.6 L D MCV 67.3 L MCH 20.5 L D MCHC 30.5 L RDW 20.3 H Plt Count 123 L MPV 11.4 H D Absolute Neuts (auto) 2.0 Neutrophils % 53.6 Lymphocytes % 24.5 Monocytes % 15.1 H Eosinophils % 3.3 Basophils % 3.5 H Nucleated RBC % 0 Hypochromia 1+ Platelet Estimate Decreased Polychromasia 0 Poikilocytosis 0 Anisocytosis 1+ Microcytosis 1+ Macrocytosis 0 PT with INR 13.30 H INR 1.13 H PTT (Actin FS) 27.0 Sodium 133 L Potassium 4.2 Chloride 104 Carbon Dioxide 24 Anion Gap 4 L BUN 12.7 Creatinine 0.9 Est GFR (CKD-EPI)AfAm 115.83 Est GFR (CKD-EPI)NonAf 99.94 Random Glucose 74 Calcium 8.2 L Total Bilirubin 0.4 AST 41 H ALT 22 Alkaline Phosphatase 80 Creatine Kinase 425 H Creatine Kinase Index 0.6 CK-MB (CK-2) 2.6 Troponin I < 0.02 Total Protein 9.3 H Albumin 2.7 L Discharge Medications Medication Instructions Recorded Albuterol Sulfate Inhaler - 1 - 2 inh PO QID 07/17/14 [Ventolin HFA Inhaler -] Metoprolol Tartrate [Lopressor -] 50 mg PO BID 07/17/14 Morphine Sulfate 15 mg PO DAILY PRN 05/31/20 Fondaparinux Sodium [Arixtra 7.5 mg SQ DAILY 30 Days #30 06/01/20 (Restricted) -] disp.jerry Date of Admission:05/31/20 Left AMA: 06/01/20 Minutes to complete discharge: 40 Discharge Summary Problems reviewed: Yes Reason For Visit: SOB HYPERCOAGULABLE STATE CHEST PAIN Hospital Course: 49 year old male with history of DVT/PE (s/p IVC filter non-compliant with Arixtra), protein C/S deficiency, Factor V Leiden deficiency, Asthma presented to the ED with recurrent R sided pleuritic chest pain. sudden onset non- radiating substernal chest pain and shortness of breath, without tachycardia or hypoxia. 1. History of DVT/PE (s/p IVC filter non-compliant with Arixtra), protein C/S deficiency, Factor V Leiden deficiency Patient reports some insurance issue with Arixtra as recommended by his Strategic Advisor/PCP Unable to do CTA chest due to contrast allergy. Per pulm, V/Q not needed at this time Echo reqested Arixtra resumed. Patient decided to leave AMA prior to Hematology eval and before clarification of insurance issues as related to his Arixtra. He was explained all risks of leaving AMA including respiratory arrest, disability, , and verbalized understanding. 2. Chronic Venous Stasis Hx DVT ?PVD Vascular Surgery consulted - patient left AMA prior to evaluation. 3. Patient claims to be on Morphine Sulfate and demanding it. No evidence of withdrawal or severe pain at this time. Patient left AMA before Rx/dose can be clarified with pharmacy. 4. Microcytic Anemia/Thrombocytpenia - No evidence of acute blood loss. Left AMA prior to Iron deficiency work-up and Hematology eval. Condition: Stable - Instructions Referrals: Maru Henson MD [Staff Physician] - 1 Week (microcytic anemia, thrombocytopenia, hypercoagulable state) Disposition: AGAINST MEDICAL ADVICE - Home Medications Comprehensive Discharge Medication List: Ambulatory Orders Albuterol Sulfate Inhaler - [Ventolin HFA Inhaler -] 1 - 2 inh PO QID 07/17/14 Metoprolol Tartrate [Lopressor -] 50 mg PO BID 07/17/14 Morphine Sulfate 15 mg PO DAILY PRN 05/31/20 Fondaparinux Sodium [Arixtra (Restricted) -] 7.5 mg SQ DAILY 30 Days #30 disp.syrin 06/01/20 This patient is new to me today: Yes Date on this admission: 06/01/20 Emergency Visit: Yes ED Registration Date: 05/31/20 Care time: The patient presented to the Emergency Department on the above date and was hospitalized for further evaluation of their emergent condition. Critical Care patient: No - Discharge Referral Referred to [facility] Med P.C.: No
[2020-06-01] MEDS ORDERED: LIDOCAINE PATCH REMOVAL MC ONE (14:45)
[2020-06-01] MEDS ORDERED: FONDAPARINUX SODIUM 2.5 MG/0.5 ML DISP.SYRIN SQ SCH (18:15)
[2020-06-01] MEDS ORDERED: FONDAPARINUX SODIUM 5 MG/0.4 ML DISP.SYRIN SQ SCH (18:15)
--- NOTE | 2020-06-04 07:10 | ECHO ---
Name: LAURENT TORREZ Exam:Adult Echocardiogram Study Date: 05/31/2020 04:03 PM Age: 49 yrs Reason For Study: r/o HEART STRAIN; r/o PE Height: 62 in Weight: 130 lb BSA: 1.6 m2 MMode/2D Measurements & Calculations IVSd: 1.2 cm Ao root diam: 2.5 cm LVIDd: 3.5 cm LA dimension: 2.5 cm LVIDs: 2.3 cm ACS: 1.5 cm LVPWd: 1.3 cm EDV(Teich): 51.7 ml LVOT diam: 1.6 cm ESV(Teich): 18.2 ml LAV (MOD-bp): 33.0 ml TAPSE: 2.4 cm RV S Chaitanya: 10.3 cm/sec Doppler Measurements & Calculations MV E max chaitanya: 97.6 cm/sec Ao V2 max: 149.3 cm/sec MV A max chaitanya: 90.5 cm/sec Ao max P.9 mmHg MV E/A: 1.1 Ao V2 mean: 86.6 cm/sec MV dec time: 0.24 sec Ao mean P.7 mmHg Ao V2 VTI: 22.6 cm RADHA(I,D): 1.6 cm2 RADHA(V,D): 1.5 cm2 LV V1 max P.2 mmHg SV(LVOT): 35.3 ml LV V1 mean P.4 mmHg LV V1 max: 113.5 cm/sec LV V1 mean: 71.7 cm/sec LV V1 VTI: 18.4 cm TR max chaitanya: 252.9 cm/sec PA V2 max: 137.1 cm/sec TR max P.6 mmHg PA max P.5 mmHg PA acc slope: 513.1 cm/sec2 PA acc time: 0.18 sec Med Peak E' Chaitanya: 5.7 cm/sec PA pr(Accel): -0.22 mmHg Med E/e': 17.3 Lat Peak E' Chaitanya: 7.1 cm/sec Lat E/e': 13.7 Procedure A complete two-dimensional transthoracic echocardiogram was performed (2D, M-mode, Doppler and color flow Doppler). Left Ventricle The left ventricular size, thickness and function are normal. Ejection Fraction = 60-65%. The left ve ntricular wall motion is normal. Right Ventricle The right ventricle is normal in size and function. Atria Normal left and right atrial size and function. Mitral Valve There is no mitral regurgitation noted. Tricuspid Valve There is moderate tricuspid regurgitation. Right ventricular systolic pressure is normal. Aortic Valve No hemodynamically significant valvular aortic stenosis. No aortic regurgitation is present. Pulmonic Valve There is no pulmonic valvular regurgitation. Great Vessels The aortic root is normal size. Pericardium/Pleura There is no pericardial effusion. Interpretation Summary The left ventricular size, thickness and function are normal The right ventricle is normal in size and function. There is moderate tricuspid regurgitation. Right ventricular systolic pressure is normal. MD Ian Crook 05/31/2020 04:43 PM
== END 2020-06-01 11:20 | disposition left against medical advice (07) | DRG 134 ==
LOC: JER 08:29 → JERBED 12:07 → J4S 19:01
PROVIDERS: ADMIT Internal Medicine
DX: I26.99 Other pulmonary embolism without acute cor pulmonale (principal); D68.2 Hereditary deficiency of other clotting factors; D68.59 Other primary thrombophilia; D69.6 Thrombocytopenia, unspecified; R07.9 Chest pain, unspecified; I25.10 Atherosclerotic heart disease of native coronary artery without angina pectoris; I25.2 Old myocardial infarction; J45.909 Unspecified asthma, uncomplicated; Z86.718 Personal history of other venous thrombosis and embolism; R07.89 Other chest pain; I87.2 Venous insufficiency (chronic) (peripheral); R06.02 Shortness of breath; Z91.14 Patient's other noncompliance with medication regimen; I34.1 Nonrheumatic mitral (valve) prolapse; D50.9 Iron deficiency anemia, unspecified; L30.9 Dermatitis, unspecified
CPT/HCPCS: 36415; 71045-TC-FY; 80053; 82550; 82553; 84484; 85025; 85610; 85730; 93005; 93010; 93306-TC; 99285-25; U0003

== ENCOUNTER 2020-06-08 02:52 | Inpatient (IN) | payer BC, OTHER ==
[2020-06-08 03:47] VITALS: BMI 23.8
--- NOTE | 2020-06-08 03:58 | PDOC ---
History of Present Illness - General Chief Complaint: Pain, Acute Stated Complaint: LEFT LEG PAIN - History of Present Illness Initial Comments: Pt is a 49yo M with PMH significant for hypercoagulable disorder, multiple DVT/PE s/p IVC and SVC filters, mitral valve prolapse, and asthma who presents with L left pain. Pt had ultrasound done on 06/06/20 at [facility] showing multiple L and R lower extremity clots. States that he has 9/10 pain in his "right" leg and groin (was gesturing to his left leg), which prompted him to come to ED this evening. States that he has been having pain since yesterday. Denies any aggravating factors. States that his last dose of Arixtra was last week. Reports onset of SOB this evening. Is adamant about speaking with his lung specialist Dr. Dotson. Denies f/c, headache, dizziness, lightheadedness, chest pain, abdominal pain. PMH: hypercoagulable disorder, multiple DVT/PE s/p IVC and SVC filters, mitral valve prolapse, and asthma PSHx: wrist operation Meds: lopressor, proventil, morphine 06/08/20 07:08 Past History - Medical History Allergies/Adverse Reactions: Allergies Allergy/AdvReac Type Severity Reaction Status Date / Time acetaminophen [From Tylenol] Allergy Severe Difficulty Verified 05/31/20 08:33 Breathing aspirin Allergy Severe Difficulty Verified 05/31/20 08:33 Breathing hydromorphone HCl Allergy Severe Difficulty Verified 05/31/20 08:33 [From Dilaudid] Breathing ibuprofen Allergy Severe Swelling Verified 05/31/20 08:33 ketorolac tromethamine Allergy Severe Swelling Verified 05/31/20 08:33 [From Toradol] oxycodone HCl [From Percocet] Allergy Severe Swelling Verified 05/31/20 08:33 Penicillins Allergy Severe Swelling Verified 05/31/20 08:33 tramadol HCl [From Ultram] Allergy Verified 05/31/20 08:33 Home Medications: Ambulatory Orders Albuterol Sulfate Inhaler - [Ventolin HFA Inhaler -] 1 - 2 inh PO QID 07/17/14 Metoprolol Tartrate [Lopressor -] 50 mg PO BID 07/17/14 Morphine Sulfate 15 mg PO DAILY PRN 05/31/20 Fondaparinux Sodium [Arixtra (Restricted) -] 7.5 mg SQ DAILY 30 Days #30 disp.syrin 06/01/20 Anemia: No Asthma: Yes Cancer: No Cardiac Disorders: Yes (mitral valve prolapse) CVA: No COPD: No CHF: No Dementia: No Diabetes: No GI Disorders: No Disorders: No HTN: Yes Hypercholesterolemia: No Liver Disease: No Seizures: No Thyroid Disease: No - Surgical History Cardiac Surgery: Yes (ALONZO FILTER x2) - Immunization History Immunization Up to Date: Yes - Psycho-Social/Smoking History Smoking Status: No Smoking History: Never smoked Have you smoked in the past 12 months: No Number of Cigarettes Smoked Daily: 0 Information on smoking cessation initiated: No - Substance Abuse Hx (Audit-C & DAST Scrn) How often the patient has a drink containing alcohol: Never Score: In Men: 4 or > Positive; In Women: 3 or > Positive: 0 Screen Result (Pos requires Nsg. Audit-10AR): Negative In the last yr the pt used illegal drug/Rx for NonMed reason: No Score: Yes response is considered Positive: 0 Screen Result (Positive result requires Nsg. DAST-10): Negative Review of Systems - Review of Systems Comments:: Constitutional: Denies fevers, chills, fatigue Respiratory: Reports SOB. Denies: Cough, Wheezing Cardiac: Denies Chest Pain, Palpitations GI: Denies abdominal pain, n/v, constipation, diarrhea Neurological: Denies headache, tingling, weakness, dizziness, lightheadedness MSK: reports L lower extremity pain 06/08/20 07:30 *Physical Exam - Vital Signs Last Vital Signs Temp Pulse Resp BP Pulse Ox 98.5 F 98 H 18 150/97 100 06/08/20 02:52 06/08/20 02:52 06/08/20 02:52 06/08/20 02:52 06/08/20 02:52 - Physical Exam General: well developed, well nourished Head: normocephalic, atraumatic Lung: equal breath sounds b/l, CTA b/l, no crackles, wheezes Heart: RRR, holosystolic murmur Extremities: no edema, DP pulses 2+ and symmetric, normal gait Skin: warm, dry, no rashes or lesions noted 06/08/20 07:29 ED Treatment Course - LABORATORY CBC & Chemistry Diagram: 06/08/20 05:20 06/08/20 05:20 Medical Decision Making - Medical Decision Making Mr. Ballard is a 49yo M with PMH hypercoagulable disorder, multiple PE/DVT s/p IVC and SVC filter, mitral valve prolapse, and asthma who presents with L leg pain with recent US showing multiple b/l lower extremity clots. Vital Signs Temp Pulse Resp BP Pulse Ox 98.6 F 95 H 17 123/70 100 06/08/20 06:11 06/08/20 06:11 06/08/20 06:11 06/08/20 06:11 06/08/20 06:11 DDx: DVT, PE Plan: labs, CXR, pain control, anticoagulation Pt states that he has previously received Fondaparinux for anticoagulation. Concerned for PE given previous history, current multiple DVTs, and poor a dherence to anticoagulation. Pt given therapeutic dose of Fondaparinux. Pt given IM morphine for pain control, appears comfortable and is resting. Pt has had stable vitals during his time ED, no tachycardia, no tachypnea, satting >94%. Labs similar to previous visits: CBC with anemia and thrombocytopenia, no leukocytosis, elevated PT and INR. CMP with mild hypocalcemia and hypoalbuminemia CXR: no effusions, no infiltrates, SVC filter visualized EKG: my interpretation: normal sinus rhythm, HR 94bpm, no interval abnormalities Consult for Dr. Dotson placed. Spoke to Dr. Norton, accepting attending Dr. Titus Disposition Admit to telemetry 06/08/20 07:13 06/08/20 07:24 Discharge - Discharge Information Problems reviewed: Yes Clinical Impression/Diagnosis: DVT (deep venous thrombosis) Condition: Stable - Admission Yes - Follow up/Referral - Patient Discharge Instructions - Post Discharge Activity
--- NOTE | 2020-06-08 04:37 | PDOC ---
Attending Attestation - Resident Resident Name: Tanja Kenny - ED Attending Attestation I have performed the following: I have examined & evaluated the patient, The case was reviewed & discussed with the resident, I agree w/resident's findings & plan, Exceptions are as noted - HPI HPI: 06/14/20 19:46 See resident HPI - Physicial Exam PE: 06/14/20 19:46 Agree with documented exam - Medical Decision Making 06/14/20 19:46 Has significant hx of hypercoagulopathic dz, documented proximal dvt 2 days prior to presentation from studies done at [facility], being treated with arixtra but has not been able to get medicated with regularity f/u labs, imaging dispo per clinical course arixtra will likely need admission for tx and observation Discharge - Discharge Information Problems reviewed: Yes Clinical Impression/Diagnosis: DVT (deep venous thrombosis) Condition: Good Disposition: HOME - Follow up/Referral - Patient Discharge Instructions - Post Discharge Activity
[2020-06-08 05:38] LABS: HEMOGLOBIN 9.3 GM/dL (11.7-16.9)
[2020-06-08] MEDS ORDERED: morphine CARPU-JECT 2 MG/1 ML DISP.SYRIN IM ONE (05:38)
[2020-06-08] MEDS ORDERED: morphine SULFATE 4 MG/ML VIAL ONE (05:41)
[2020-06-08 05:45] LABS: INR 1.12 (0.83-1.09); PROTHROMBIN TIME (PATIENT) 13.2 SEC (9.7-13.0)
[2020-06-08 05:48] LABS: ACTIVATED PTT 31.5 SECONDS (25.2-36.5)
[2020-06-08 05:50] LABS: BASO % 0.8 % (0-2.0); EOS % 2.5 % (0-4.5); HEMATOCRIT 30.5 % (35.4-49); LYMPH % 13.4 % (8-40); MCH 20.6 pg (25.7-33.7); MCHC 30.4 g/dl (32.0-35.9); MEAN CELL VOLUME 67.9 fl (80-96); MEAN PLT VOLUME 9.9 fl (7.5-11.1); MONO % 12.7 % (3.8-10.2); NEUT % 70.6 % (42.8-82.8); PLATELET COUNT 95 K/MM3 (134-434); RDW 20.7 % (11.9-15.9); WHITE BLOOD COUNT 6.1 K/mm3 (4.0-10.0)
[2020-06-08 05:59] LABS: ALBUMIN 2.8 g/dl (3.4-5.0); BILIRUBIN,TOTAL 0.2 mg/dL (0.2-1); BLOOD UREA NITROGEN 17.9 mg/dL (7-18); CALCIUM 8.3 mg/dL (8.5-10.1); CREATININE 0.9 mg/dL (0.55-1.3); POTASSIUM 3.6 mmol/L (3.5-5.1); TOT PROT 8.8 g/dl (6.4-8.2)
[2020-06-08] MEDS ORDERED: FONDAPARINUX SODIUM 5 MG/0.4 ML DISP.SYRIN SQ SCH (06:41)
[2020-06-08 07:13] LABS: ANISOCYTOSIS 2+
[2020-06-08 07:14] LABS: PLATELET ESTIMATE SLT DECREASE
--- NOTE | 2020-06-08 08:23 | HP ---
CHIEF COMPLAINT: L leg pain PCP: Dr. Crum (sp?) Vasc surg ([facility]): Dr. Debi Jones (from ): Dr. Rodriguez HISTORY OF PRESENT ILLNESS: 49M w/ pmhx of DVT/PE (has IVC filter), protein C/S deficiency, Factor V Leiden, and asthma presents in the ED for worsening acute on chronic LLE pain. States he had an ultrasound at [facility] showing multiple L and RLE clots. Has been having pain since yesterday. Of note, pt was seen in the ED last week, given Arixtra, but left AMA prior to completion of his medical work up. He has been having insurance issues obtaining Arixtra and has not been able to receive it on his own. Denies headache, dizziness, nausea/vomiting, chest pain, sob, abd pain. ER course was notable for: (1) Afebrile, HR ~90s, BP 123/70, 100% RA. (2) CXR neg, Arixtra given, IV Morphine given (3) Pulm consulted Recent Travel: Denies PAST MEDICAL HISTORY: As per HPI PAST SURGICAL HISTORY: IVC filter Social History: Smoking: Denies Alcohol: Denies Drugs: Denies Allergies acetaminophen [From Tylenol] Allergy (Severe, Verified 05/31/20 08:33) Difficulty Breathing aspirin Allergy (Severe, Verified 05/31/20 08:33) Difficulty Breathing hydromorphone HCl [From Dilaudid] Allergy (Severe, Verified 05/31/20 08:33) Difficulty Breathing ibuprofen Allergy (Severe, Verified 05/31/20 08:33) Swelling ketorolac tromethamine [From Toradol] Allergy (Severe, Verified 05/31/20 08:33) Swelling oxycodone HCl [From Percocet] Allergy (Severe, Verified 05/31/20 08:33) Swelling Penicillins Allergy (Severe, Verified 05/31/20 08:33) Swelling tramadol HCl [From Ultram] Allergy (Verified 05/31/20 08:33) HOME MEDICATIONS: Home Medications Medication Instructions Recorded Albuterol Sulfate Inhaler - 1 - 2 inh PO QID 07/17/14 [Ventolin HFA Inhaler -] Metoprolol Tartrate [Lopressor -] 50 mg PO BID 07/17/14 Morphine Sulfate 15 mg PO DAILY PRN 05/31/20 Fondaparinux Sodium [Arixtra 7.5 mg SQ DAILY 30 Days #30 06/01/20 (Restricted) -] disp.syrin REVIEW OF SYSTEMS CONSTITUTIONAL: Absent: fever, chills, diaphoresis, generalized weakness, malaise, loss of appetite, weight change HEENT: Absent: rhinorrhea, nasal congestion, throat pain, throat swelling, difficulty swallowing, mouth swelling, ear pain, eye pain, visual changes CARDIOVASCULAR: Absent: chest pain, syncope, palpitations, irregular heart rate, lightheadedness, peripheral edema RESPIRATORY: Absent: cough, shortness of breath, dyspnea with exertion, orthopnea, wheezing, stridor, hemoptysis GASTROINTESTINAL: Absent: abdominal pain, abdominal distension, nausea, vomiting, diarrhea, constipation, melena, hematochezia GENITOURINARY: Absent: dysuria, frequency, urgency, hesitancy, hematuria, flank pain, genital pain MUSCULOSKELETAL: B/L LE pain; R groin pain Absent: myalgia, arthralgia, joint swelling, back pain, neck pain SKIN: Absent: rash, itching, pallor HEMATOLOGIC/IMMUNOLOGIC: Absent: easy bleeding, easy bruising, lymphadenopathy, frequent infections ENDOCRINE: Absent: unexplained weight gain, unexplained weight loss, heat intolerance, cold intolerance NEUROLOGIC: Absent: headache, focal weakness or paresthesias, dizziness, unsteady gait, seizure, mental status changes, bladder or bowel incontinence PSYCHIATRIC: Absent: anxiety, depression, suicidal or homicidal ideation, hallucinations. PHYSICAL EXAMINATION Vital Signs - 24 hr 06/08/20 06/08/20 02:52 06:11 Temperature 98.5 F 98.6 F Pulse Rate 98 H Pulse Rate [ 95 H Left] Respiratory 18 17 Rate Blood Pressure 150/97 Blood Pressure 123/70 [Arm] O2 Sat by Pulse 100 100 Oximetry (%) GENERAL: AAOx3. NAD. HEENT: AT/NC. EOMI. Dry mucus membranes. NECK: Normal range of motion, supple without lymphadenopathy, JVD, or masses. LUNGS: CTA B/L, No wheezes noted. HEART: RRR. Normal S1, S2. ABDOMEN: Soft, NT/ND. Normoactive Bs. MUSCULOSKELETAL: Moves all extremities EXTREMITIES: No peripheral edema noted. +Sienna's sign NEUROLOGICAL: Cranial nerves II-XII intact. Normal speech. SKIN: Dry dark scaly skin on b/l LE, peeling. No ulcers noted. Tenderness to b/l LE CBC, BMP 06/08/20 05:20 06/08/20 05:20 ASSESSMENT/PLAN: 49M w/ pmhx of DVT/PE (has IVC filter), protein C/S deficiency, Factor V Leiden, and asthma presents in the ED with sudden onset non-radiating substernal chest pain and shortness of breath admitted for PE. #Suspect DVT/PE; has hx of DVT/PE in the past (s/p filter), multiple blood clotting disorders, noncompliance with AC -Pt currently stable, satting well on RA, BP stable -Unable to do CTA chest due to contrast allergy. Was seen by pulm during last visit, V/Q was not needed at that time as pt was to be treated empirically for DVT/PE given significant pmhx -Arixtra given in ED. Will cont to treat empirically and will cont Arixtra 7.5 SQ QD -Echo done last admission (05/31/20) showed mod TR, LV wnl, RV wnl, RV systolic pressure normal -Pt was seen at [facility] and had DVT study done. Report brought by pt showed DVT in RLE involving external iliac, common femoral and superior femoral veins; DVT of LLE involving external iliac, common femoral, and popliteal veins; only L popliteal vein/SVC jxn demonstrates flow suggestive of partial canalization which may indicate chronicity. -Currently On Morphine Sulfate 15 mg Q6H PRN for pain #Chronic Venous Stasis; r/o PVD -Vasc surg consulted #Hx of Protein C/S deficiency, Factor V Leiden; Suspect DVT/PE. -cont AC -OP follow up -Heme consulted #Prophylaxis DVT: Cont Arixtra #FEN -PO hydration -recheck lytes in AM -Regular diet Dispo -admit to tele -meds to be reconciled by pharmacy Visit type - Emergency Visit Emergency Visit: Yes ED Registration Date: 06/08/20 Care time: The patient presented to the Emergency Department on the above date and was hospitalized for further evaluation of their emergent condition. - New Patient This patient is new to me today: No - Critical Care Critical Care patient: No ATTENDING PHYSICIAN STATEMENT I saw and evaluated the patient. I reviewed the resident's note and discussed the case with the resident. I agree with the resident's findings and plan as documented. SUBJECTIVE: OBJECTIVE: ASSESSMENT AND PLAN:
[2020-06-08] MEDS ORDERED: MORPHINE SULFATE 2 MG/ML VIAL IM ONE (08:38)
[2020-06-08] MEDS ORDERED: MORPHINE SULFATE 2 MG/ML VIAL ONE (09:14)
--- NOTE | 2020-06-08 11:31 | PN ---
Teaching Attending Note Name of Resident: Fiordaliza Norton ATTENDING PHYSICIAN STATEMENT I saw and evaluated the patient. I reviewed the resident's note and discussed the case with the resident. I agree with the resident's findings and plan as documented. 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 Associated finding includes swelling of the right calf. Patient has been on Arixtra but missed doses secondary to insurance issues. OBJECTIVE: 49 year old male who appears much older than stated age HEENT: Dirty but anicteric sclerae Neck supple chest; fair air movement no rales, ronchi nor wheezing CVS RRR abd soft hypoactive bowel sounds ext: edematous and tender right lower extremity. 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 Pain of bilateral lower extremities secondary to DVT - Arixtra restarted - vascular surgery, hematology, pulmonary medicine services consulted - morphine for pain - may need thrombolysis of clots (await opinion from pulm and vascular surg) 2. BM prophylaxis- colace 3. thrombocytopenia secondary to recurrent clots - follow 4. Patient needs assistance to avail of Arixtra DW Dr Norton and agree with her plans of care
--- NOTE | 2020-06-08 12:04 | CONSULT ---
Consultation: REQUESTING PROVIDER: Dr. Norton CONSULT REQUEST: We have been asked to medically evaluate this patient for DVT. HISTORY OF PRESENT ILLNESS: Pt. is a 49 y.o. M w/ PMHx. of Protein C&S deficiency, Factor V Leiden (s/p IVC and SVC filters, s/p GIB, s/p failure of Warfarin and Xarelto), Mitral valve prolapse, CAD(s/p [place] in 2011) and history of HIT presents for RLE pain. Pt. was recently seen at [facility] and had imaging which showed extensive b/l DVTs. Pt. notable was here 8 days ago for similar complaint and left AMA after receiving a dose of Arixtra. Pt. states that he has been unable to get Arixtra because it cost $1000/month and insurance is very reluctant to pay. Pt. complains of shortness of breath that is worse with inspiration and exquisite RLE tenderness. Pt. states he left AMA because he does not like hospitals, however I discussed at length with him the importance for him to stay so that we can determine a plan for his anticoagulation. Pt. states that it is difficult to draw blood from him and that he has had PICC lines in the past for blood draws. Pt. states that he has had 4 filters placed, 3 in 1993 and 1 in 2001, none have been removed. Pt.'s grandfather had Protein C&S deficiency and in his arms at 59 years old. REVIEW OF SYSTEMS: As above PHYSICAL EXAMINATION Vital Signs - 24 hr 06/08/20 06/08/20 06/08/20 02:52 06:11 07:20 Temperature 98.5 F 98.6 F 98.1 F Pulse Rate 98 H Pulse Rate [ 95 H 78 Left] Respiratory 18 17 14 Rate Blood Pressure 150/97 Blood Pressure 123/70 119/66 [Arm] O2 Sat by Pulse 100 100 100 Oximetry (%) GENERAL: Awake, alert, and fully oriented, in no acute distress. HEAD: Normal with no signs of trauma. EYES: Extraocular movements intact, sclera anicteric, conjunctiva clear. EARS, NOSE, THROAT: Moist mucous membranes. LUNGS: Breath sounds equal, clear to auscultation bilaterally anteriorly. No wheezes, and no crackles. No accessory muscle use. HEART: Regular rate and rhythm, normal S1 and S2 without murmur ABDOMEN: Soft, nontender, not distended, normoactive bowel sounds, no guarding, no rebound, no masses. MUSCULOSKELETAL: Limited 2/2 pain UPPER EXTREMITIES: 2+ radial pulses. warm LOWER EXTREMITIES: 2+ dorsal pedal pulses, warm, 9/10 R. calf tenderness. NEUROLOGICAL: Normal speech. Gait not assessed PSYCHIATRIC: Cooperative. Good eye contact. Appropriate mood and affect. SKIN: Chronic lower extremity changes. Laboratory Results - last 24 hr 06/08/20 06/08/20 06/08/20 05:20 05:20 05:20 WBC 6.1 RBC 4.50 Hgb 9.3 L Hct 30.5 L MCV 67.9 L MCH 20.6 L MCHC 30.4 L RDW 20.7 H Plt Count 95 L D MPV 9.9 D Absolute Neuts (auto) 4.3 Neutrophils % 70.6 D Lymphocytes % 13.4 D Monocytes % 12.7 H Eosinophils % 2.5 Basophils % 0.8 Nucleated RBC % 0 Hypochromia 2+ Platelet Estimate Slt decrease Platelet Comment No clumping noted Polychromasia 1+ Anisocytosis 2+ Microcytosis 2+ Spherocytes 1+ PT with INR 13.20 H INR 1.12 H PTT (Actin FS) 31.5 Sodium 139 Potassium 3.6 Chloride 109 H Carbon Dioxide 23 Anion Gap 8 BUN 17.9 Creatinine 0.9 Est GFR (CKD-EPI)AfAm 115.83 Est GFR (CKD-EPI)NonAf 99.94 Random Glucose 101 Calcium 8.3 L Iron 25 L TIBC 319 Iron Saturation 7 L Unsaturated IBC 294 H Ferritin 82.7 Total Bilirubin 0.2 AST 24 ALT 24 Alkaline Phosphatase 86 Total Protein 8.8 H Albumin 2.8 L Blood Type Antibody Screen 06/08/20 05:20 WBC RBC Hgb Hct MCV MCH MCHC RDW Plt Count MPV Absolute Neuts (auto) Neutrophils % Lymphocytes % Monocytes % Eosinophils % Basophils % Nucleated RBC % Hypochromia Platelet Estimate Platelet Comment Polychromasia Anisocytosis Microcytosis Spherocytes PT with INR INR PTT (Actin FS) Sodium Potassium Chloride Carbon Dioxide Anion Gap BUN Creatinine Est GFR (CKD-EPI)AfAm Est GFR (CKD-EPI)NonAf Random Glucose Calcium Iron TIBC Iron Saturation Unsaturated IBC Ferritin Total Bilirubin AST ALT Alkaline Phosphatase Total Protein Albumin Blood Type O POSITIVE Antibody Screen Negative Active Medications Generic Name Dose Route Start Last Admin Trade Name Freq PRN Reason Stop Dose Admin Fondaparinux 7.5 mg 06/08/20 06:41 06/08/20 09:19 Arixtra (Restricted) - SQ 7.5 mg DAILY NEREIDA Administration Morphine Sulfate 2 mg 06/08/20 08:59 Morphine Sulfate IM Q4H PRN PAIN LEVEL 6-10 ASSESSMENT/PLAN: Pt. is a 49 y.o. M w/ PMHx. of Protein C&S deficiency, Factor V Leiden (s/p IVC and SVC filters, s/p GIB, s/p failure of Warfarin and Xarelto), Mitral valve prolapse, CAD(s/p [place] in 2011) and history of HIT presents for RLE pain. #DVT, high suspicion for clotted SVC filter vs. 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 Vascular Consult appreciated for possible thrombolysis (although he has Hx. of GIB seen in 2017 note) Social Work consult appreciated as Pt. will need life long Arixtra. This case may need to be escalated as insurance is very resistant to paying for Arixtra. Dispo: We will continue to follow the patient. Thank you for this consultative opportunity. Visit type - Emergency Visit Emergency Visit: Yes ED Registration Date: 06/08/20 Care time: The patient presented to the Emergency Department on the above date and was hospitalized for further evaluation of their emergent condition. - New Patient This patient is new to me today: Yes Date on this admission: 06/08/20 - Critical Care Critical Care patient: No ATTENDING PHYSICIAN STATEMENT I saw and evaluated the patient. I reviewed the resident's note and discussed the case with the resident. I agree with the resident's findings and plan as documented. SUBJECTIVE: OBJECTIVE: ASSESSMENT AND PLAN:
[2020-06-08] MEDS ORDERED: DOCUSATE SODIUM 100 MG CAPSULE (FP) PO PRN (12:27)
--- NOTE | 2020-06-08 13:36 | EKG ---
Test Reason : Blood Pressure : / mmHG Vent. Rate : 094 BPM Atrial Rate : 094 BPM P-R Int : 146 ms QRS Dur : 092 ms QT Int : 364 ms P-R-T Axes : 072 019 067 degrees QTc Int : 455 ms NORMAL SINUS RHYTHM RIGHT ATRIAL ENLARGEMENT WHEN COMPARED WITH ECG OF 31-MAY-2020 08:32, NO SIGNIFICANT CHANGE WAS FOUND Confirmed by NBA MIGUEL MD ([id number]) on 06/08/2020 1:35:54 PM Referred By: Confirmed By:NBA MIGUEL MD
--- NOTE | 2020-06-08 15:43 | CON.PULM ---
Consult Consult Specialty:: PULM/CCM Referred by:: Hospitalist Reason for Consultation:: SOB - History of Present Illness Chief Complaint: Right leg pain & SOB History of Present Illness: 43 M, known protein S & C deficiency, factor V Leiden deficiency, mitral valve prolapse, CAD ([place] in 2011), DVTs, recurrent PEs s/p IVC and SVC filters (Dr. Wesley),, supposed asthma (only on PRN Albuterol), and HTN. Reports being maintained on Arixtra. Was here recently with the same issue that he has been apparently having insurance issues and has not had access to his medications for almost 3 to 4 weeks at this point. Outside Doppler study that reveals bilateral DVTs. No fever or chills. No reported COVID19 infection or exposure. No hemoptysis. Patient seen in the ER comfortable on RA. He does not have tachycardia. At present he is CP free. - History Source History Provided By: Patient Limitations to Obtaining History: No Limitations - Past Medical History Pulmonary: Yes: Asthma (h/o astma-not currently symptomatic), Bronchitis, Pneumonia, Pulmonary Embolus. 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 History of Recent Travel: Yes ([place]) Home Medications - Allergies Allergies/Adverse Reactions: Allergies Allergy/AdvReac Type Severity Reaction Status Date / Time acetaminophen [From Tylenol] Allergy Severe Difficulty Verified 05/31/20 08:33 Breathing aspirin Allergy Severe Difficulty Verified 05/31/20 08:33 Breathing hydromorphone HCl Allergy Severe Difficulty Verified 05/31/20 08:33 [From Dilaudid] Breathing ibuprofen Allergy Severe Swelling Verified 05/31/20 08:33 ketorolac tromethamine Allergy Severe Swelling Verified 05/31/20 08:33 [From Toradol] oxycodone HCl [From Percocet] Allergy Severe Swelling Verified 05/31/20 08:33 Penicillins Allergy Severe Swelling Verified 05/31/20 08:33 tramadol HCl [From Ultram] Allergy Verified 05/31/20 08:33 - Home Medications Home Medications: Ambulatory Orders Albuterol Sulfate Inhaler - [Ventolin HFA Inhaler -] 1 - 2 inh PO QID 07/17/14 Metoprolol Tartrate [Lopressor -] 50 mg PO BID 07/17/14 Morphine Sulfate 15 mg PO Q6H PRN 05/31/20 Fondaparinux Sodium [Arixtra (Restricted) -] 7.5 mg SQ DAILY 30 Days #30 d isp.syrin 06/01/20 Review of Systems - Review of Systems Constitutional: denies: Chills, Fever Eyes: reports: No Symptoms HENT: reports: No Symptoms Neck: reports: No Symptoms Cardiovascular: reports: Chest Pain, Edema, Shortness of Breath. denies: Palpitations Respiratory: reports: Cough, SOB, SOB on Exertion. denies: Hemoptysis, Snoring, Wheezing Gastrointestinal: reports: No Symptoms Genitourinary: reports: No Symptoms Breasts: reports: No Symptoms Reported Musculoskeletal: reports: No Symptoms Integumentary: reports: No Symptoms Neurological: reports: No Symptoms Endocrine: reports: No Symptoms Hematology/Lymphatic: reports: No Symptoms Psychiatric: reports: No Symptoms Physical Exam Vital Sings: Vital Signs Temperature 98.1 F 06/08/20 07:20 Pulse Rate 89 06/08/20 13:22 Respiratory Rate 15 06/08/20 13:22 Blood Pressure 135/76 06/08/20 13:22 O2 Sat by Pulse Oximetry (%) 100 06/08/20 13:22 Constitutional: Yes: No Distress Eyes: Yes: Conjunctiva Clear, EOM Intact HENT: Yes: Atraumatic, Normocephalic Neck: Yes: Supple, Trachea Midline Cardiovascular: Yes: Regular Rate and Rhythm Respiratory: Yes: Cough, Diminished. No: Accessory Muscle Use, On BiPap, On Nasal O2, On Venti-Mask, Rales, Rhonchi, SOB, SOB on Exertion, Stridor, Tachypnea, Wheezes ...Inspection: Yes: WNL ...Clubbing: No Gastrointestinal: Yes: Normal Bowel Sounds, Soft Musculoskeletal: Yes: Back Pain, Joint Stiffness Extremities: Yes: Cool Edema: Yes Peripheral Pulses WNL: Yes (diminished ) Integumentary: Yes: Venous Stasis Changes Neurological: Yes: Alert, Oriented ...Motor Strength: WNL Psychiatric: Yes: WNL, Alert, Oriented Labs: CBC, BMP 06/08/20 05:20 06/08/20 05:20 Imaging - Results Chest X-ray: Report Reviewed, Image Reviewed Problem List - Problems (1) DVT (deep venous thrombosis) Code(s): I82.409 - ACUTE EMBOLISM AND THOMBOS UNSP DEEP VN UNSP LOWER EXTREMITY (2) Anemia Code(s): D64.9 - ANEMIA, UNSPECIFIED (3) Asthma Code(s): J45.909 - UNSPECIFIED ASTHMA, UNCOMPLICATED (4) Atypical chest pain Code(s): R07.89 - OTHER CHEST PAIN (5) Chronic pain Code(s): G89.29 - OTHER CHRONIC PAIN (6) Dvt femoral (deep venous thrombosis) Code(s): I82.419 - ACUTE EMBOLISM AND THROMBOSIS OF UNSPECIFIED FEMORAL VEIN (7) Factor V Leiden Code(s): D68.51 - ACTIVATED PROTEIN C RESISTANCE (8) Hypercoagulable state Code(s): D68.59 - OTHER PRIMARY THROMBOPHILIA (9) Hypertension Code(s): I10 - ESSENTIAL (PRIMARY) HYPERTENSION (10) Pulmonary embolism Code(s): I26.99 - OTHER PULMONARY EMBOLISM WITHOUT ACUTE COR PULMONALE (11) Shortness of breath Code(s): R06.02 - SHORTNESS OF BREATH (12) Vein stenosis Code(s): I87.1 - COMPRESSION OF VEIN Assessment/Plan Patient with history of non-compliance. Advised about possibility of due to AC non-compliance. Continue AC. Social service for medication assistance. Supplemental O2 as needed At this time he is not hypoxic and HR is normal and appears clinically stable. Do not suspect hemodynamically significant PE or SVC obstruction. No clear indication for V/Q scanning or additional testing at this time. Patient reports that he had a recent ECHO at [facility] that revealed elevated right heart pressures. No smoking was discussed. Will follow if remains admitted. There is no Pulmonary contraindication for DC planning. Thank you. Dr Dotson
[2020-06-08] MEDS: MORPHINE SULFATE 2 MG/ML VIAL IM PRN (20:47)
--- NOTE | 2020-06-09 07:05 | PN ---
Progress Note, Physician History of Present Illness: PULMONARY ALERT,COMFORTABLE ,SOB IMPROVING,-CP - Current Medication List Current Medications: Active Medications Docusate Sodium (Colace -) 100 mg PO BID PRN PRN Reason: CONSTIPATION Fondaparinux (Arixtra (Restricted) -) 7.5 mg SQ DAILY NEREIDA Last Admin: 06/08/20 09:19 Dose: 7.5 mg Documented by: Morphine Sulfate (Morphine Sulfate) 2 mg IM Q4H PRN PRN Reason: PAIN LEVEL 6-10 Last Admin: 06/08/20 20:47 Dose: 2 mg Documented by: - Objective Vital Signs: Vital Signs Temperature 97.3 F L 06/08/20 21:59 Pulse Rate 75 06/08/20 21:59 Respiratory Rate 18 06/08/20 21:59 Blood Pressure 117/77 06/08/20 21:59 O2 Sat by Pulse Oximetry (%) 100 06/08/20 18:00 Constitutional: Yes: Well Nourished, Calm Eyes: Yes: WNL HENT: Yes: WNL Neck: Yes: WNL Cardiovascular: Yes: Regular Rate and Rhythm, S1, S2 Respiratory: Yes: CTA Bilaterally Gastrointestinal: Yes: Normal Bowel Sounds, Soft Extremities: Yes: WNL Edema: Yes Labs: Assessment/Plan Problem List - Problems (1) DVT (deep venous thrombosis) Code(s): I82.409 - ACUTE EMBOLISM AND THOMBOS UNSP DEEP VN UNSP LOWER EXTREMITY (2) Anemia Code(s): D64.9 - ANEMIA, UNSPECIFIED (3) Asthma Code(s): J45.909 - UNSPECIFIED ASTHMA, UNCOMPLICATED (4) Atypical chest pain Code(s): R07.89 - OTHER CHEST PAIN (5) Chronic pain Code(s): G89.29 - OTHER CHRONIC PAIN (6) Dvt femoral (deep venous thrombosis) Code(s): I82.419 - ACUTE EMBOLISM AND THROMBOSIS OF UNSPECIFIED FEMORAL VEIN (7) Factor V Leiden Code(s): D68.51 - ACTIVATED PROTEIN C RESISTANCE (8) Hypercoagulable state Code(s): D68.59 - OTHER PRIMARY THROMBOPHILIA (9) Hypertension Code(s): I10 - ESSENTIAL (PRIMARY) HYPERTENSION (10) Pulmonary embolism Code(s): I26.99 - OTHER PULMONARY EMBOLISM WITHOUT ACUTE COR PULMONALE (11) Shortness of breath Code(s): R06.02 - SHORTNESS OF BREATH (12) Vein stenosis Code(s): I87.1 - COMPRESSION OF VEIN Assessment/Plan Patient with history of non-compliance. Advised about possibility of due to AC non-compliance. Continue AC. Social service for medication assistance. Supplemental O2 as needed DR RENTERIA
--- NOTE | 2020-06-09 08:53 | PN ---
Teaching Attending Note Name of Resident: David Rizvi ATTENDING PHYSICIAN STATEMENT I saw and evaluated the patient. I reviewed the resident's note and discussed the case with the resident. I agree with the resident's findings and plan as documented. ASSESSMENT AND PLAN: Pt. is a 49 y.o. M w/ PMHx. of ???Protein C&S deficiency ( unsure of the diagnosis), ? Factor V Leiden mutation, h/o HIT ( 1993???) Reports he failed coumadin/xeralto /eliquis eventhough he was compliant (s/p IVC and SVC filters, h/o GIB,), Mitral valve prolapse, CAD(s/p CT in 2011) On long-term arixtra Has not taken it for 6 months Now wth bilateral lower extremity DVT extending to the iliacs with symptomatic RLE pain Resumed fondaparinux 7.5 mg daily Will need marriage and family social worker to arrange fondaparinux Anemia--microcytic Iron deficiency --saturation7% will dose iv iron will eventually need GI w/u to r/o occult mlignancy Thrombocytopenia:? consumptive from active thrombosis check B12/folate/TSh/fT4
[2020-06-09] MEDS ORDERED: PT OWN MED DRAWER 7, Y5N ONE (09:13)
[2020-06-09] MEDS: MORPHINE SULFATE 2 MG/ML VIAL IM PRN ×2 (09:24→17:41)
[2020-06-09] MEDS: FONDAPARINUX SODIUM 5 MG/0.4 ML DISP.SYRIN SQ SCH (09:26)
[2020-06-09] MEDS ORDERED: IRON SUCROSE INJECTION 200 MG in SODIUM CHLORIDE 90 ML IVPB ONE (10:00)
--- NOTE | 2020-06-09 16:08 | PN ---
Progress Note (short form) - Note Progress Note: SUBJECTIVE Seen and examined at bedside. Patient denies shortness of breath, cough, palpitations. Reports mild leg pain which is controlled at this time. Nursing unable to get IV. Patient reports at previous hospitalizations patient required IV to be placed by interventional radiology. OBJECTIVE Last Vital Signs Temp Pulse Resp BP Pulse Ox 98.1 F 78 20 122/79 100 06/09/20 14:00 06/09/20 14:00 06/09/20 14:00 06/09/20 14:00 06/09/20 09:00 PE: GEN: NAD HEENT: NC/AT MARIAM RESP: CTAB CARDS: RRR,-MRG ABD: Soft, nt/nd B+S Ext: RLE swelling NEURO: A&OX3 Current Medications Generic Name Dose Route Start Last Admin Trade Name Freq PRN Reason Stop Dose Admin Docusate Sodium 100 mg 06/08/20 12:27 Colace - PO BID PRN CONSTIPATION Fondaparinux 7.5 mg 06/08/20 10:00 06/09/20 09:26 Arixtra (Restricted) - SQ 7.5 mg DAILY NEREIDA Administration Morphine Sulfate 2 mg 06/08/20 08:59 06/09/20 09:24 Morphine Sulfate IM 2 mg Q4H PRN Administration PAIN LEVEL 6-10 ASSESSMENT/PLAN 49-year-old male with a history of protein C/S deficiency, factor V Leiden, status post for IVC filters and numerous DVTs and PEs, failure on warfarin and Xarelto, mitral valve prolapse, CAD status post [place] in [place], history of heparin- induced thrombocytopenia, presents with DVT after was unable to get fondaparinux due to insurance issues #DVT Continue with fondaparinux 7.5 mg daily Patient will need assistance with ensuring insurance coverage for this drug prior to discharge Pulmonary on board: Appreciate recommendations. Patient does not have symptoms suggestive of PE and does not require imaging to rule in or out as diagnosis would not international exchange coordinator at this time Vascular consult for possible thrombolysis -pain control #Iron deficiency anemia Patient does not have IV access at this time. Will require interventional radiology to place line due to reported history of multiple issues at other hospitals Start oral iron therapy Visit type - Emergency Visit Emergency Visit: Yes ED Registration Date: 06/08/20 Care time: The patient presented to the Emergency Department on the above date and was hospitalized for further evaluation of their emergent condition. - New Patient This patient is new to me today: No - Critical Care Critical Care patient: No
--- NOTE | 2020-06-09 17:40 | PN.HO ---
Progress Note, Physician History of Present Illness: No complaints today except for persistent RLE pain. Able to ambulate. No SOB. Denies bleeding. - Current Medication List Current Medications: Active Medications Docusate Sodium (Colace -) 100 mg PO BID PRN PRN Reason: CONSTIPATION Fondaparinux (Arixtra (Restricted) -) 7.5 mg SQ DAILY NEREIDA Last Admin: 06/09/20 09:26 Dose: 7.5 mg Documented by: Morphine Sulfate (Morphine Sulfate) 2 mg IM Q4H PRN PRN Reason: PAIN LEVEL 6-10 Last Admin: 06/09/20 09:24 Dose: 2 mg Documented by: - Objective Vital Signs: Vital Signs Temperature 98.1 F 06/09/20 14:00 Pulse Rate 78 06/09/20 14:00 Respiratory Rate 20 06/09/20 14:00 Blood Pressure 122/79 06/09/20 14:00 O2 Sat by Pulse Oximetry (%) 100 06/09/20 09:00 Constitutional: Yes: No Distress Eyes: Yes: Conjunctiva Clear Cardiovascular: Yes: WNL Respiratory: Yes: WNL, Regular Edema: LLE: 1+ (chronic venous stasis changes) Labs: CBC, BMP 06/08/20 05:20 06/08/20 05:20 INR, PTT INR 1.12 (0.83-1.09) H 06/08/20 05:20 Assessment/Plan 49M with CAD, ?hx HIT (reported by patient, no evidence for it in records), COVID-19 in 03/2020, and hx recurrent VTE (reportedly failed warfarin, Xarelto, Eliquis), most recently on Arixtra (but has not taken in months due to insurance issues), s/p 2 IVC filters placed at some point due to GIB, presented with LE pain. Bilateral lower extremity DVT (?how acute) reported from recent [facility] visit. LE doppler at [facility] in 04/2020 with chronic deep vein thrombosis in common femoral vein and saphenofemoral junction; no R sided DVT. Likely has Protein C deficiency (activity low on 3 occasions with normal protein S at the time, unclear whether may have been checked at thrombotic events or on warfarin) C/w fondaparinux 7.5 mg daily Will need social work instructor to ensure it's covered. Microcytic anemia, chronic Likely a component of iron deficiency given low % sat Started on Venofer Probably concomitant thal trait, can check Hgb electrophoresis Will eventually need GI w/u Mild thrombocytopenia, chronic, fluctuating for >10 years Had at least 2 BM bx in the past (2008, 2001 with some concern for MDS) CTAP 10/2019 at [facility]:large bilateral inguinal and left external iliac adenopathy, with surrounding inflammatory stranding, significantly increased from the 2016 exam. It is not clear if this is related to chronic vessel occlu quincy, or an infectious or inflammatory process. Neoplasm cannot be definitively excluded. Consider repeat CTAP to eval for progression (unless recently done at another facility). Unclear whether this may be reactive to thrombosis or contributing to it.
[2020-06-09] MEDS ORDERED: diphenhydrAMINE HCL 25 MG CAPSULE (FP) PO ONE (21:42)
[2020-06-10] MEDS: MORPHINE SULFATE 2 MG/ML VIAL IM PRN ×3 (00:29→12:33)
--- NOTE | 2020-06-10 07:43 | PN ---
Progress Note, Physician History of Present Illness: pulmonary alert,comfortable,-sob,less lower ext discomfort - Current Medication List Current Medications: Active Medications Docusate Sodium (Colace -) 100 mg PO BID PRN PRN Reason: CONSTIPATION Fondaparinux (Arixtra (Restricted) -) 7.5 mg SQ DAILY NEREIDA Last Admin: 06/09/20 09:26 Dose: 7.5 mg Documented by: Morphine Sulfate (Morphine Sulfate) 2 mg IM Q4H PRN PRN Reason: PAIN LEVEL 6-10 Last Admin: 06/10/20 00:29 Dose: 2 mg Documented by: - Objective Vital Signs: Vital Signs Temperature 97.6 F 06/10/20 02:00 Pulse Rate 83 06/10/20 02:00 Respiratory Rate 18 06/10/20 02:00 Blood Pressure 139/78 06/10/20 02:00 O2 Sat by Pulse Oximetry (%) 100 06/09/20 21:00 Constitutional: Yes: Well Nourished, Calm Eyes: Yes: WNL HENT: Yes: WNL Neck: Yes: WNL Cardiovascular: Yes: Regular Rate and Rhythm, S1, S2 Respiratory: Yes: CTA Bilaterally Gastrointestinal: Yes: Normal Bowel Sounds, Soft Extremities: Yes: WNL Edema: No Labs: CBC, BMP Assessment/Plan Problem List - Problems (1) DVT (deep venous thrombosis) Code(s): I82.409 - ACUTE EMBOLISM AND THOMBOS UNSP DEEP VN UNSP LOWER EXTREMITY (2) Anemia Code(s): D64.9 - ANEMIA, UNSPECIFIED (3) Asthma Code(s): J45.909 - UNSPECIFIED ASTHMA, UNCOMPLICATED (4) Atypical chest pain Code(s): R07.89 - OTHER CHEST PAIN (5) Chronic pain Code(s): G89.29 - OTHER CHRONIC PAIN (6) Dvt femoral (deep venous thrombosis) Code(s): I82.419 - ACUTE EMBOLISM AND THROMBOSIS OF UNSPECIFIED FEMORAL VEIN (7) Factor V Leiden Code(s): D68.51 - ACTIVATED PROTEIN C RESISTANCE (8) Hypercoagulable state Code(s): D68.59 - OTHER PRIMARY THROMBOPHILIA (9) Hypertension Code(s): I10 - ESSENTIAL (PRIMARY) HYPERTENSION (10) Pulmonary embolism Code(s): I26.99 - OTHER PULMONARY EMBOLISM WITHOUT ACUTE COR PULMONALE (11) Shortness of breath Code(s): R06.02 - SHORTNESS OF BREATH (12) Vein stenosis Code(s): I87.1 - COMPRESSION OF VEIN Assessment/Plan Patient with history of non-compliance. Continue AC. Social service for medication assistance. Supplemental O2 as needed DR RENTERIA
--- NOTE | 2020-06-10 09:02 | PN ---
Physical Exam: SUBJECTIVE: Patient seen and examined Patiened was examined at bedside. No acute events overnight. Patient reports continued superficial pain in his right calf. Small 1in area of hardened skin sensitive to touch. OBJECTIVE: Vital Signs Period Temp Pulse Resp BP Sys/Pittman Pulse Ox Last 24 Hr 97.6 F-98.4 F 61-83 16-20 122-140/76-90 100-100 GENERAL: The patient is awake, alert, and fully oriented, in no acute distress. HEAD: Normal with no signs of trauma. EYES: PERRL, extraocular movements intact, sclera anicteric, conjunctiva clear. No ptosis. ENT: Ears normal, nares patent, oropharynx clear without exudates, moist mucous membranes. NECK: Trachea midline, full range of motion, supple. LUNGS: Breath sounds equal, clear to auscultation bilaterally, no wheezes, no crackles, no accessory muscle use. HEART: Regular rate and rhythm, S1, S2 without murmur, rub or gallop. ABDOMEN: Soft, nontender, nondistended, normoactive bowel sounds, no guarding, no rebound, no hepatosplenomegaly, no masses. EXTREMITIES: 2+ pulses, warm, well-perfused, no edema. NEUROLOGICAL: Cranial nerves II through XII grossly intact. Normal speech, gait not observed. PSYCH: Normal mood, normal affect. SKIN: Warm, dry, normal turgor, no rashes or lesions noted Laboratory Results - last 24 hr 06/08/20 05:30 COVID-19 (JAIME) Not detected Active Medications Generic Name Dose Route Start Last Admin Trade Name Freq PRN Reason Stop Dose Admin Docusate Sodium 100 mg 06/08/20 12:27 Colace - PO BID PRN CONSTIPATION Fondaparinux 7.5 mg 06/08/20 10:00 06/09/20 09:26 Arixtra (Restricted) - SQ 7.5 mg DAILY NEREIDA Administration Morphine Sulfate 2 mg 06/08/20 08:59 06/10/20 07:54 Morphine Sulfate IM 2 mg Q4H PRN Administration PAIN LEVEL 6-10 ASSESSMENT/PLAN: Mr. Ballard is a 49M w a pmhx of possible protein C and protein S deficiency, factor V leiden deficiency, s/p ivc filters x4. DVT, and PE, incompatible with warfarin, CAD in '12. Patient presents to the hospital due to DVT and inability to fill prescription for fondaparinux. # Bilateral Lower extremity DVT - Continued on 7.5mg of fondaparinux daily - social work will arrange for prescription fulfillment # Iron deficiency - saturation of 7% - IV iron - Follow TIBC - Follow Ferritin levels - monitor for symptoms Visit type - Emergency Visit Emergency Visit: Yes ED Registration Date: 06/08/20 Care time: The patient presented to the Emergency Department on the above date and was hospitalized for further evaluation of their emergent condition. - New Patient This patient is new to me today: Yes Date on this admission: 06/10/20 - Critical Care Critical Care patient: No - Discharge Referral Referred to [facility] Med P.C[facility] No ATTENDING PHYSICIAN STATEMENT I saw and evaluated the patient. I reviewed the resident's note and discussed the case with the resident. I agree with the resident's findings and plan as documented. SUBJECTIVE: OBJECTIVE: ASSESSMENT AND PLAN:
[2020-06-10] MEDS ORDERED: PT OWN MED DRAWER 7, Y5N ONE (09:24)
[2020-06-10] MEDS: FONDAPARINUX SODIUM 5 MG/0.4 ML DISP.SYRIN SQ SCH (09:41)
[2020-06-10] MEDS ORDERED: MEPERIDINE HCL 50 MG TABLET PO PRN (12:57)
--- NOTE | 2020-06-10 14:00 | PN ---
Teaching Attending Note Name of Resident: Emanuel San ATTENDING PHYSICIAN STATEMENT I saw and evaluated the patient. I reviewed the resident's note and discussed the case with the resident. I agree with the resident's findings and plan as documented. SUBJECTIVE Seen and examined at bedside. Condition unchanged. Per hematology note patient had significant inguinal adenopathy adenopathy. Will discuss with patient whether this was worked up and if not we will repeat CT abdomen pelvis. Start on oral iron pending IV access OBJECTIVE Last Vital Signs Temp Pulse Resp BP Pulse Ox 98.4 F 78 16 139/90 100 06/10/20 08:23 06/10/20 08:23 06/10/20 08:23 06/10/20 08:23 06/10/20 08:20 PE: GEN: NAD HEENT: NC/AT MARIAM RESP: CTAB CARDS: RRR,-MRG ABD: Soft, nt/nd B+S Ext: RLE swelling NEURO: A&OX3 ASSESSMENT/PLAN 49-year-old male with a history of protein C/S deficiency, factor V Leiden, status post for IVC filters and numerous DVTs and PEs, failure on warfarin and Xarelto, mitral valve prolapse, CAD status post [place] in 2011, history of heparin- induced thrombocytopenia, presents with DVT after was unable to get fondaparinux due to insurance issues #DVT Continue with fondaparinux 7.5 mg daily Patient will need assistance with ensuring insurance coverage for this drug prior to discharge Pulmonary on board: Appreciate recommendations. Patient does not have symptoms suggestive of PE and does not require imaging to rule in or out as diagnosis would not plant changer at this time Vascular consult for possible thrombolysis -pain control #Iron deficiency anemia Patient does not have IV access at this time. Will require interventional radiology to place line due to reported history of multiple issues at other hospitals Start oral iron therapy
--- NOTE | 2020-06-10 17:48 | PN.HO ---
Progress Note, Physician History of Present Illness: Denies leg pain. No bleeding. - Current Medication List Current Medications: Active Medications Docusate Sodium (Colace -) 100 mg PO BID PRN PRN Reason: CONSTIPATION Fondaparinux (Arixtra (Restricted) -) 7.5 mg SQ DAILY NEREIDA Last Admin: 06/10/20 09:41 Dose: 7.5 mg Documented by: - Objective Vital Signs: Vital Signs Temperature 98.4 F 06/10/20 08:23 Pulse Rate 78 06/10/20 08:23 Respiratory Rate 16 06/10/20 08:23 Blood Pressure 139/90 06/10/20 08:23 O2 Sat by Pulse Oximetry (%) 100 06/10/20 08:20 Constitutional: Yes: No Distress, Calm Eyes: Yes: Conjunctiva Clear Respiratory: Yes: WNL, Regular Edema: LLE: Trace, RLE: Trace Labs: CBC, BMP 06/08/20 05:20 06/08/20 05:20 INR, PTT INR 1.12 (0.83-1.09) H 06/08/20 05:20 Assessment/Plan 49M with CAD, ?hx HIT (reported by patient, no evidence for it in records), COVID-19 in 03/2020, and hx recurrent VTE (reportedly failed warfarin, Xarelto, Eliquis), most recently on Arixtra (but has not taken in months due to insurance issues), s/p 2 IVC filters placed at some point due to GIB, presented with LE pain. Bilateral lower extremity DVT (?how acute) reported from recent [facility] visit. LE doppler at [facility] in 04/2020 with chronic deep vein thrombosis in common femoral vein and saphenofemoral junction; no R sided DVT. Likely has Protein C deficiency (activity low on 3 occasions with normal protein S at the time, unclear whether may have been checked at thrombotic events or on warfarin) C/w fondaparinux 7.5 mg daily Will need rn social services to ensure it's covered. Microcytic anemia, chronic Likely a component of iron deficiency given low % sat Planned for venofer but PO iron reasonable while line pending. Probably concomitant thal trait, can check Hgb electrophoresis Will eventually need GI w/u Mild thrombocytopenia, chronic, fluctuating for >10 years Had at least 2 BM bx in the past (2008, 2001 with some concern for MDS) CTAP 10/2019 at [facility]:large bilateral inguinal and left external iliac adenopathy, with surrounding inflammatory stranding, significantly increased from the 2016 exam. It is not clear if this is related to chronic vessel occlusion, or an infectious or inflammatory process. Neoplasm cannot be definitively excluded. Consider repeat CTAP to eval for progression (unless recently done at another facility). Unclear whether this may be reactive to thrombosis or contributing to it.
[2020-06-10] MEDS ORDERED: diphenhydrAMINE HCL 25 MG CAPSULE (FP) PO ONE (18:30)
[2020-06-10] MEDS ORDERED: diphenhydrAMINE HCL 25 MG CAPSULE (FP) PO PRN (18:31)
[2020-06-10] MEDS: morphine SULFATE 4 MG/ML VIAL IVPUSH PRN (18:40)
[2020-06-10] MEDS ORDERED: DOCUSATE SODIUM 100 MG CAPSULE (FP) PO ONE (18:47)
[2020-06-11] MEDS: morphine SULFATE 4 MG/ML VIAL IVPUSH PRN ×2 (01:07→07:34)
[2020-06-11] MEDS ORDERED: FERROUS SO4 325 MG TABLET (FP) PO SCH (08:00)
[2020-06-11] MEDS ORDERED: PT OWN MED DRAWER 7, Y5N ONE (08:23)
[2020-06-11] MEDS: FONDAPARINUX SODIUM 5 MG/0.4 ML DISP.SYRIN SQ SCH (09:20)
[2020-06-11] MEDS ORDERED: morphine SULFATE 4 MG/ML VIAL IM PRN (09:44)
--- NOTE | 2020-06-11 12:57 | PN ---
Progress Note (short form) - Note Progress Note: PULMONARY Denies shortness of breath, chest pain. Vital Signs Period Temp Pulse Resp BP Sys/Pittman Pulse Ox Last 24 Hr 97.9 F-98.1 F 74-88 18-20 120-144/76-90 96-97 Gen: NAD at rest Heart: RRR Lung: decreased breath sounds at the bases Abd: soft, nontender Ext: no edema CBC, BMP 06/08/20 05:20 06/08/20 05:20 Active Medications Diphenhydramine HCl (Benadryl -) 25 mg PO Q12H PRN PRN Reason: ALLERGIES Docusate Sodium (Colace -) 100 mg PO BID PRN PRN Reason: CONSTIPATION Ferrous Sulfate (Feosol -) 325 mg PO DAILY@0800 REPLACED BY [facility] Last Admin: 06/11/20 07:34 Dose: 325 mg Documented by: Fondaparinux (Arixtra (Restricted) -) 7.5 mg SQ DAILY REPLACED BY [facility] Last Admin: 06/11/20 09:20 Dose: 7.5 mg Documented by: Morphine Sulfate (Morphine Sulfate) 4 mg IM Q8H PRN PRN Reason: PAIN LEVEL 7 - 10 A/P Recurrent DVT Protein C/S deficiency Factor V Leiden CAD h/o HIT - continue fondaparinux - O2 as needed
--- NOTE | 2020-06-11 14:03 | PN ---
Progress Note (short form) - Note Progress Note: Vascular Surgery Pt seen and examined. Bl lower ext DVT involving the iliacs. STudy done at other hospital. Report reviewed. Pt has protien c and s, and factor 5 def. Pt needs to be on AC. Pt has palpable pulses in both legs. Can follow up in clinic as outpt. Paul Ruiz DO
[2020-06-11 14:46] VITALS: BP 125/80; PULSE 91; TEMP 98.2
--- NOTE | 2020-06-11 15:39 | DS ---
Physical Exam: SUBJECTIVE: Patient seen and examined OBJECTIVE: Vital Signs Period Temp Pulse Resp BP Sys/Pittman Pulse Ox Last 24 Hr 97.9 F-98.2 F 74-91 18-20 120-144/76-90 96-97 PHYSICAL EXAM GENERAL: The patient is awake, alert, and fully oriented, in no acute distress. HEAD: Normal with no signs of trauma. EYES: PERRL, extraocular movements intact, sclera anicteric, conjunctiva clear. ENT: Ears normal, nares patent, oropharynx clear without exudates, moist mucous membranes. NECK: Trachea midline, full range of motion, supple. LUNGS: Breath sounds equal, clear to auscultation bilaterally, no wheezes, no crackles, no accessory muscle use. HEART: Regular rate and rhythm, S1, S2 without murmur, rub or gallop. ABDOMEN: Soft, nontender, nondistended, normoactive bowel sounds, no guarding, no rebound, no hepatosplenomegaly, no masses. EXTREMITIES: 2+ pulses, warm, well-perfused, no edema. NEUROLOGICAL: Cranial nerves II through XII grossly intact. Normal speech, gait not observed. PSYCH: Normal mood, normal affect. SKIN: Warm, dry, normal turgor, no rashes or lesions noted. LABS HOSPITAL COURSE: Date of Admission:06/08/20 Date of Discharge: 06/11/20 Minutes to complete discharge: 40 Discharge Summary Problems reviewed: Yes Reason For Visit: DVT Current Active Problems DVT (deep venous thrombosis) (Chronic) Condition: Good - Instructions Diet, Activity, Other Instructions: YOUR VISIT: You were admitted to the hospital because you had deep vein thrombosis that needed to be medically treated. While you were in the hospital, we evaluated you with lab work, blood work, imaging including a chest X-ray that was normal. We found that you had a pain in your right leg that required pain medication. With your extensive allergic profile, we managed to provide you with adequate pain management. We evaluated your DVT and continued your home dose of fondaparinux. You were also seen by our churn operator margarine and vascular surgery team. You were also found to have low iron during your hospital course where we treated you with iron medication. While you were here you were evaluated by Dr. Ruiz, and would like you to follow up with him outpatient for your DVTs. Medication: Please START taking fondaparinux 7.5 mg daily Please take all of your home medications as prescribed FOLLOW UP: Please follow up with Dr. Paul Ruiz for vascular care within 1 week of discharge Please follow up with your portrait photographer/oncologist within 1 week of discharge Please follow up with your primary care provider within 1 week of discharge If you do not have a primary care provider you may make an appointment with Dr. Emanuel San at the [facility] located at [address] [place] [address] ([phone]) ADDITIONAL INFORMATION: You are being discharged to your home Please return to the Emergency Department if you experience worsening pain, fevers, chills, shortness of breath, or chest pain, or if you experience any worsening , new or concerning symptoms. Referrals: [facility] [place] [facility] [place] [Provider Group] - 1 Week Disposition: HOME - Home Medications Comprehensive Discharge Medication List: Ambulatory Orders Albuterol Sulfate Inhaler - [Ventolin HFA Inhaler -] 1 - 2 inh PO QID 07/17/14 Metoprolol Tartrate [Lopressor -] 50 mg PO BID 07/17/14 Morphine Sulfate 15 mg PO Q6H PRN 05/31/20 Hydrocortisone 1% Cream [Hytone 1% Cream -] 1 applic TP DAILY PRN 06/09/20 Mineral Oil/Hydrophil Petrolat [Aquaphor Healing Ointment] 50 gm TP PRN 06/09/20 Docusate Sodium [Colace] 100 mg PO BID #30 capsule 06/11/20 Fondaparinux Sodium [Arixtra] 7.5 mg SQ DAILY #30 syringe 06/11/20 Sennosides [Senna] 8.6 mg PO PRN #30 tablet 06/11/20 - Discharge Referral Referred to [facility] Med P.C.: No ATTENDING PHYSICIAN STATEMENT I saw and evaluated the patient. I reviewed the resident's note and discussed the case with the resident. I agree with the resident's findings and plan as documented. SUBJECTIVE: OBJECTIVE: ASSESSMENT AND PLAN:
--- NOTE | 2020-06-11 17:04 | PN ---
Teaching Attending Note Name of Resident: Emanuel San ATTENDING PHYSICIAN STATEMENT I saw and evaluated the patient. I reviewed the resident's note and discussed the case with the resident. I agree with the resident's findings and plan as documented. SUBJECTIVE Seen and examined at bedside. Condition unchanged. Called patient's pharmacy to inquire about the insurance issue. Per the pharmacist the patient has multiple prescriptions waiting for him and they were fully covered. The patient became angry and was arguing with the pharmacist. It is unclear what issue the patient has had getting his medications. The patient will be discharged with outpatient follow-up and can shrimp picker his prescription at the pharmacy and follow-up with his outpatient physicians. OBJECTIVE Last Vital Signs Temp Pulse Resp BP Pulse Ox 98.4 F 78 16 139/90 100 06/10/20 08:23 06/10/20 08:23 06/10/20 08:23 06/10/20 08:06/10/20 08:20 PE: GEN: NAD HEENT: NC/AT MARIAM RESP: CTAB CARDS: RRR,-MRG ABD: Soft, nt/nd B+S Ext: RLE swelling NEURO: A&OX3 ASSESSMENT/PLAN 49-year-old male with a history of protein C/S deficiency, factor V Leiden, status post for IVC filters and numerous DVTs and PEs, failure on warfarin and Xarelto, mitral valve prolapse, CAD status post [place] in 2011, history of heparin- induced thrombocytopenia, presents with DVT after was unable to get fondaparinux due to insurance issues. Upon calling the pharmacy, the patient has multiples prescriptions waiting for him and as per the pharmacist his medication is fully covered. The patient can be discharged with outpatient follow-up.
== END 2020-06-11 18:39 | disposition home or self-care (01) | DRG 197 ==
LOC: JER 02:52 → JERBED 04:29 → J4W 18:31
PROVIDERS: ADMIT Internal Medicine; ATTEND Internal Medicine
DX: I82.403 Acute embolism and thrombosis of unspecified deep veins of lower extremity, bilateral (principal); T45.516A Underdosing of anticoagulants, initial encounter; I82.503 Chronic embolism and thrombosis of unspecified deep veins of lower extremity, bilateral; E83.51 Hypocalcemia; I25.10 Atherosclerotic heart disease of native coronary artery without angina pectoris; R07.89 Other chest pain; G89.29 Other chronic pain; I10 Essential (primary) hypertension; I87.2 Venous insufficiency (chronic) (peripheral); D50.9 Iron deficiency anemia, unspecified; I34.1 Nonrheumatic mitral (valve) prolapse; J45.909 Unspecified asthma, uncomplicated; I25.2 Old myocardial infarction; E88.09 Other disorders of plasma-protein metabolism, not elsewhere classified; D69.6 Thrombocytopenia, unspecified; D68.51 Activated protein C resistance; D68.59 Other primary thrombophilia; Z91.120 Patient's intentional underdosing of medication regimen due to financial hardship
CPT/HCPCS: 36415; 71045-TC-FY; 80053; 82728; 83540; 83550; 85025; 85610; 85730; 86850; 86900; 86901; 93005; 93010; 99285-25; U0003

== ENCOUNTER 2020-06-15 02:03 | Emergency (ER) | payer BC ==
[2020-06-15 02:39] VITALS: BP 152/95; PULSE 92; TEMP 97.8; BMI 23.8
--- NOTE | 2020-06-15 02:42 | PDOC ---
History of Present Illness - General Chief Complaint: Pain, Acute Stated Complaint: RIGHT LEG PAIN Time Seen by Provider: 06/15/20 02:20 History Source: Patient Exam Limitations: No Limitations - History of Present Illness Initial Comments: 06/15/20 02:41 pt refused exam and interview; would only speak to attending see attending note Past History - Medical History Allergies/Adverse Reactions: Allergies Allergy/AdvReac Type Severity Reaction Status Date / Time acetaminophen [From Tylenol] Allergy Severe Difficulty Verified 05/31/20 08:33 Breathing aspirin Allergy Severe Difficulty Verified 05/31/20 08:33 Breathing hydromorphone HCl Allergy Severe Difficulty Verified 05/31/20 08:33 [From Dilaudid] Breathing ibuprofen Allergy Severe Swelling Verified 05/31/20 08:33 ketorolac tromethamine Allergy Severe Swelling Verified 05/31/20 08:33 [From Toradol] oxycodone HCl [From Percocet] Allergy Severe Swelling Verified 05/31/20 08:33 Penicillins Allergy Severe Swelling Verified 05/31/20 08:33 tramadol HCl [From Ultram] Allergy Verified 05/31/20 08:33 Home Medications: Ambulatory Orders Albuterol Sulfate Inhaler - [Ventolin HFA Inhaler -] 1 - 2 inh PO QID 07/17/14 Metoprolol Tartrate [Lopressor -] 50 mg PO BID 07/17/14 Morphine Sulfate 15 mg PO Q6H PRN 05/31/20 Hydrocortisone 1% Cream [Hytone 1% Cream -] 1 applic TP DAILY PRN 06/09/20 Mineral Oil/Hydrophil Petrolat [Aquaphor Healing Ointment] 50 gm TP PRN 06/09/20 Docusate Sodium [Colace] 100 mg PO BID #30 capsule 06/11/20 Fondaparinux Sodium [Arixtra] 7.5 mg SQ DAILY #30 syringe 06/11/20 Sennosides [Senna] 8.6 mg PO PRN #30 tablet 06/11/20 Anemia: No Asthma: Yes Cancer: No Cardiac Disorders: Yes (mitral valve prolapse) CVA: No COPD: No CHF: No Dementia: No Diabetes: No GI Disorders: No Disorders: No HTN: Yes Hypercholesterolemia: No Liver Disease: No Seizures: No Thyroid Disease: No - Surgical History Abdominal Surgery: No Appendectomy: No Cardiac Surgery: Yes (ALONZO FILTER x2, loop recorder) Cholecystectomy: No Lung Surgery: No Neurologic Surgery: No Orthopedic Surgery: No - Immunization History Immunization Up to Date: Yes - Psycho-Social/Smoking History Smoking Status: No Smoking History: Unknown if ever smoked Have you smoked in the past 12 months: No Number of Cigarettes Smoked Daily: 0 *Physical Exam - Vital Signs Last Vital Signs Temp Pulse Resp BP Pulse Ox 97.8 F 92 H 16 152/95 100 06/15/20 02:06/15/20 02:06/15/20 02:06/15/20 02:06/15/20 02:26 Discharge - Discharge Information Problems reviewed: Yes Clinical Impression/Diagnosis: Right leg pain Condition: Guarded Disposition: HOME - Follow up/Referral - Patient Discharge Instructions Additional Instructions: Continue your home medications as prescribed. Follow up with your Primary Care, Pulmonology, and Vascular Surgery as scheduled. Return to the Emergency Department if you experience any new or worsening symptoms. - Post Discharge Activity
--- NOTE | 2020-06-15 03:32 | PDOC ---
Attending Attestation - Resident Resident Name: Chris - ED Attending Attestation I have performed the following: I have examined & evaluated the patient, The case was reviewed & discussed with the resident, I agree w/resident's findings & plan, Exceptions are as noted - HPI HPI: 06/15/20 07:43 49M hypercoagulopathic, extensive hx of dvt/pe, s/p ivc filter, AC trials in past stopped 2/2 GIB now prescribed arixtra but non-compliant. Was seen and admitted last week 2/2 recent documentation of proximal dvt imaged at [facility] and inability to get arixtra 2/2 insurance issues. Discharged on 06/11/20 with Rx supply and coverage confirmed by in patient team with pt's pharmacy. Pt did not follow up with arranged out patient appointments and did not medicinal plant picker arixtra. Instead he went up to [place] and presented to a hospital there with the same HPI. He was admitted but left AMA, stating all of his doctors are here at [place]. Today he is complaining of the same pain to lower extremities, unimproved from prior visit. No cp, sob, f/c - Physicial Exam PE: 06/15/20 07:51 NAD, AOx3 NCAT LCTAB RRR Abd soft, nt, nd Ext no swelling, edema, deformities B/L LE with dry, scaly skin +ttp, Sienna's SILT NFD - Medical Decision Making 06/15/20 07:54 49M with known, extensive DVT being treated with arixtra Issues with medication compliance. Inpatient team confirmed with patient's pharmacy of choice that there were multiple Rx's for arixtra that were filled, ready for medicinal plant picker, and covered by insurance. Pt could not articulate a specific reason why he was not picking up his medication. Had discussion with patient about importance of compliance with treatment and follow up. Explained likely risks and possible outcomes if he did not follow through. Pt states that he will medicinal plant picker medication first thing in the morning and reschedule follow up with vascular within the week dc with return precautions. Discharge - Discharge Information Problems reviewed: Yes Clinical Impression/Diagnosis: Right leg pain Condition: Guarded Disposition: HOME - Follow up/Referral - Patient Discharge Instructions Additional Instructions: Continue your home medications as prescribed. Follow up with your Primary Care, Pulmonology, and Vascular Surgery as scheduled. Return to the Emergency Department if you experience any new or worsening symptoms. - Post Discharge Activity
== END 2020-06-15 04:29 | disposition home or self-care (01) ==
LOC: JER 02:03
DX: M79.604 Pain in right leg (principal)
CPT/HCPCS: 99282-25

== ENCOUNTER 2020-06-15 14:08 | Emergency (ER) | payer BC ==
--- NOTE | 2020-06-15 14:14 | PDOC ---
Rapid Medical Evaluation Time Seen by Provider: 06/15/20 14:11 Medical Evaluation: Allergies Allergy/AdvReac Type Severity Reaction Status Date / Time acetaminophen [From Tylenol] Allergy Severe Difficulty Verified 05/31/20 08:33 Breathing aspirin Allergy Severe Difficulty Verified 05/31/20 08:33 Breathing hydromorphone HCl Allergy Severe Difficulty Verified 05/31/20 08:33 [From Dilaudid] Breathing ibuprofen Allergy Severe Swelling Verified 05/31/20 08:33 ketorolac tromethamine Allergy Severe Swelling Verified 05/31/20 08:33 [From Toradol] oxycodone HCl [From Percocet] Allergy Severe Swelling Verified 05/31/20 08:33 Penicillins Allergy Severe Swelling Verified 05/31/20 08:33 tramadol HCl [From Ultram] Allergy Verified 05/31/20 08:33 06/15/20 14:12 I have performed a brief in-person evaluation of this patient. CC: requesting hospital admission PE: disheveled. No focal findings. Orders: NOTHING Patient will proceed to ED for further evaluation. Discharge Disposition - Diagnosis Malingering - Referrals - Patient Instructions - Post Discharge Activity
[2020-06-15 14:15] VITALS: BP 142/91; PULSE 81; TEMP 98.8; BMI 23.8
--- NOTE | 2020-06-15 16:12 | PDOC ---
History of Present Illness - General History Source: Patient Exam Limitations: No Limitations - History of Present Illness Initial Comments: 06/15/20 16:11 49-year-old male extensive history of DVT and PE with IVC filter, several trials of anticoagulation which were discontinued due to GI bleed. Has been prescribed arixta however patient has been noncompliant with this medication. Presented to this ED earlier today with complaint of bilateral lower extremity unimproved from prior visits. He was discharged at 8 AM went to [facility] ED and now returns to our ED stating he needs his medication and wants to be admitted. Requesting multiple of his digital librarian to be called. Denies chest pain, shortness of breath. ROS: as above PE: Disheveled Holding a suitcase Would not allow further examination Is this a multiple visit Asthma Patient?: No <Cherry Perez - Last Filed: 06/15/20 16:13> <Ian Clay - Last Filed: 06/15/20 16:47> - General Chief Complaint: Pain Stated Complaint: Pain Time Seen by Provider: 06/15/20 14:11 Past History - Medical History Anemia: No Asthma: Yes Cancer: No Cardiac Disorders: Yes (mitral valve prolapse) CVA: No COPD: No CHF: No Dementia: No Diabetes: No GI Disorders: No Disorders: No HTN: Yes Hypercholesterolemia: No Liver Disease: No Seizures: No Thyroid Disease: No - Surgical History Abdominal Surgery: No Appendectomy: No Cardiac Surgery: Yes (ALONZO FILTER x2, loop recorder) Cholecystectomy: No Lung Surgery: No Neurologic Surgery: No Orthopedic Surgery: No - Immunization History Immunization Up to Date: Yes - Psycho-Social/Smoking History Smoking Status: No Smoking History: Never smoked Have you smoked in the past 12 months: No Number of Cigarettes Smoked Daily: 0 Information on smoking cessation initiated: No - Substance Abuse Hx (Audit-C & DAST Scrn) How often the patient has a drink containing alcohol: Never Score: In Men: 4 or > Positive; In Women: 3 or > Positive: 0 Screen Result (Pos requires Nsg. Audit-10AR): Negative In the last yr the pt used illegal drug/Rx for NonMed reason: No Score: Yes response is considered Positive: 0 Screen Result (Positive result requires Nsg. DAST-10): Negative <Cherry Perez - Last Filed: 06/15/20 16:13> <Ian Clay - Last Filed: 06/15/20 16:47> - Medical History Allergies/Adverse Reactions: Allergies Allergy/AdvReac Type Severity Reaction Status Date / Time acetaminophen [From Tylenol] Allergy Severe Difficulty Verified 06/15/20 14:15 Breathing aspirin Allergy Severe Difficulty Verified 06/15/20 14:15 Breathing hydromorphone HCl Allergy Severe Difficulty Verified 06/15/20 14:15 [From Dilaudid] Breathing ibuprofen Allergy Severe Swelling Verified 06/15/20 14:15 ketorolac tromethamine Allergy Severe Swelling Verified 06/15/20 14:15 [From Toradol] oxycodone HCl [From Percocet] Allergy Severe Swelling Verified 06/15/20 14:15 Penicillins Allergy Severe Swelling Verified 06/15/20 14:15 tramadol HCl [From Ultram] Allergy Verified 06/15/20 14:15 Home Medications: Ambulatory Orders Albuterol Sulfate Inhaler - [Ventolin HFA Inhaler -] 1 - 2 inh PO QID 07/17/14 Metoprolol Tartrate [Lopressor -] 50 mg PO BID 07/17/14 Morphine Sulfate 15 mg PO Q6H PRN 05/31/20 Hydrocortisone 1% Cream [Hytone 1% Cream -] 1 applic TP DAILY PRN 06/09/20 Mineral Oil/Hydrophil Petrolat [Aquaphor Healing Ointment] 50 gm TP PRN 06/09/20 Docusate Sodium [Colace] 100 mg PO BID #30 capsule 06/11/20 Fondaparinux Sodium [Arixtra] 7.5 mg SQ DAILY #30 syringe 06/11/20 Sennosides [Senna] 8.6 mg PO PRN #30 tablet 06/11/20 *Physical Exam - Vital Signs Last Vital Signs Temp Pulse Resp BP Pulse Ox 98.8 F 81 19 142/91 100 06/15/20 14:11 06/15/20 14:11 06/15/20 14:11 06/15/20 14:11 06/15/20 14:11 <Cherry Perez - Last Filed: 06/15/20 16:13> - Vital Signs Last Vital Signs Temp Pulse Resp BP Pulse Ox 98.8 F 81 19 142/91 100 06/15/20 14:11 06/15/20 14:11 06/15/20 14:11 06/15/20 14:11 06/15/20 14:11 <Ian Clay - Last Filed: 06/15/20 16:47> Medical Decision Making - Medical Decision Making 06/15/20 16:14 49-year-old male extensive history of DVT and PE with IVC filter, several trials of anticoagulation which were discontinued due to GI bleed. Has been prescribed arixta however patient has been noncompliant with this medication. Presented to this ED earlier today with complaint of bilateral lower extremity unimproved from prior visits. He was discharged at 8 AM went to [facility] ED and now returns to our ED stating he needs his medication and wants to be admitted. Requesting multiple of his digital librarian to be called. Denies chest pain, shortness of breath. Patient is well-known for malingering at this ED as well as other ED's. Dr. Harris and resident Dr. Kenny spoke with patient at length in the ED advising him to follow-up appropriately with his physicians and digital librarian. I called [facility] on [facility] in the [place] and confirmed that his arixta medication is ready for pickup. I informed the patient of this and he left before discharge <Cherry Perez - Last Filed: 06/15/20 16:13> - Medical Decision Making 06/15/20 16:47 I reviewed the case of the mid-level practitioner and was available for consultation while in the emergency department <Ian Clay - Last Filed: 06/15/20 16:47> Discharge - Discharge Information Problems reviewed: Yes - Admission No <Cherry Perez - Last Filed: 06/15/20 16:13> <Ian Clay - Last Filed: 06/15/20 16:47> - Discharge Information Clinical Impression/Diagnosis: Malingering Condition: Stable Disposition: HOME - Follow up/Referral Referrals: Jesse Rose MD [Primary Care Provider] - - Patient Discharge Instructions Additional Instructions: Please pickup driver the Arixta prescription at [facility] in the [place]. Follow-up with your digital librarian and primary care physician as directed - Post Discharge Activity
== END 2020-06-15 16:13 | disposition home or self-care (01) ==
LOC: JER 14:08
DX: Z76.5 Malingerer [conscious simulation] (principal)
CPT/HCPCS: 99282-25

== ENCOUNTER 2020-08-12 19:16 | Inpatient (IN) | payer BC ==
[2020-08-12 19:24] VITALS: BMI 23.8
--- NOTE | 2020-08-12 20:18 | PDOC ---
History of Present Illness - General Chief Complaint: Shortness of Breath Stated Complaint: MEDICATION Time Seen by Provider: 08/12/20 19:54 History Source: Patient Exam Limitations: No Limitations - History of Present Illness Initial Comments: 08/12/20 20:23 HPI: This is a 49 y/o male with a PMH of known DVT's/PE's w/ IVC filters in the setting of factor V, protein c/s deficiency, and asthma presenting to the ED due to one hour of sudden onset SOB which began as he was getting ready for work. Additionally, he is also complaining of left sided, non-radiating, sharp, pleuritic chest pain. He reports that these symptoms are typical of his PE's (which he said he has had 28 of) and he is currently not anticoagulated as he states his medication is too expensive. The last time he was on AC was three weeks ago when he was admitted for PE workup. He denies any other accompanying symptoms, denies radiation, n/v, diaphoresis. 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 ROS: GENERAL/CONSTITUTIONAL: No fever/chills. No weakness. HEAD, EYES, EARS, NOSE AND THROAT: No change in vision. CARDIOVASCULAR: Yes chest pain and SOB RESPIRATORY: No cough, wheezing, or hemoptysis. GASTROINTESTINAL: No nausea, vomiting GENITOURINARY: No dysuria, frequency MUSCULOSKELETAL: Chronic left lower extremity swelling NEUROLOGIC: No headache, vertigo HEMATOLOGIC/LYMPHATIC: Hx of chronic upper and lower extremity DVTs ALLERGIC/IMMUNOLOGIC: No hives or skin allergy. PMH: DVT's/PE's, favtor V deficiency, protein c/s deficiency Social Hx: Denied etoh, tobacco, drugs Meds: Denied Allergies: See nurse note PE: GENERAL: Awake, alert, and fully oriented. Patient is non-toxic in appearance. He is laying in bed, conversational. HEAD: No signs of trauma EYES: PERRLA, EOMI ENT: Oropharynx clear without exudates. Moist mucosa NECK: Normal ROM, supple LUNGS: Breath sounds equal, clear to auscultation bilaterally. No wheezes, and no crackles HEART: Regular rate and rhythm, normal S1 and S2 ABDOMEN: Soft, nontender, normoactive bowel sounds. EXTREMITIES: Normal range of motion. Chronic left lower extremity swelling due to DVT. Tender to palpation. NEUROLOGICAL: Cranial nerves II through XII grossly intact. Normal speech, normal gait SKIN: Warm, Dry, normal turgor, no rashes or lesions noted. MDM: 08/12/20 21:02 This is a 49 y/o male with a PMH of known DVT's/PE's w/ IVC filters in the setting of factor V, protein c/s deficiency, and asthma presenting to the ED due to one hour of sudden onset SOB which began as he was getting ready for work - Patient with known history of multiple DVT's/PE's non-compliant with anticoagulation due to "medication being too expensive." Unclear whether this is factitious to obtain pain medication. - Patient also reports he cannot get CTA of his chest due to dye allergy - Feels similar to previous PE's - Vital signs WNL. Patient saturating 100% on RA - Will get CBC, CMP, Coags, EKG, CXR - Will give Fondiparinux for AC -EKG with no ST elevations or T wave inversions Vent rate 84bpm KS interval 152ms QRS duration 84ms QT/QTc 384/453ms - Labs notable for: D-dimer 1103 - Demerol for pain control. - Patient is well appearing, walking up and down the hallway - Patient admitted to hospitalists for AC and PE workup 08/14/20 04:50 Past History - Medical History Allergies/Adverse Reactions: Allergies Allergy/AdvReac Type Severity Reaction Status Date / Time acetaminophen [From Tylenol] Allergy Severe Difficulty Verified 06/15/20 14:15 Breathing aspirin Allergy Severe Difficulty Verified 06/15/20 14:15 Breathing hydromorphone HCl Allergy Severe Difficulty Verified 06/15/20 14:15 [From Dilaudid] Breathing ibuprofen Allergy Severe Swelling Verified 06/15/20 14:15 ketorolac tromethamine Allergy Severe Swelling Verified 06/15/20 14:15 [From Toradol] oxycodone HCl [From Percocet] Allergy Severe Swelling Verified 06/15/20 14:15 Penicillins Allergy Severe Swelling Verified 06/15/20 14:15 tramadol HCl [From Ultram] Allergy Verified 06/15/20 14:15 Home Medications: Ambulatory Orders Albuterol Sulfate Inhaler - [Ventolin HFA Inhaler -] 1 - 2 inh PO QID 07/17/14 Metoprolol Tartrate [Lopressor -] 50 mg PO BID 07/17/14 Morphine Sulfate 15 mg PO Q6H PRN 05/31/20 Hydrocortisone 1% Cream [Hytone 1% Cream -] 1 applic TP DAILY PRN 06/09/20 Mineral Oil/Hydrophil Petrolat [Aquaphor Healing Ointment] 50 gm TP PRN 06/09/20 Docusate Sodium [Colace] 100 mg PO BID #30 capsule 06/11/20 Fondaparinux Sodium [Arixtra] 7.5 mg SQ DAILY #30 syringe 06/11/20 Sennosides [Senna] 8.6 mg PO PRN #30 tablet 06/11/20 Anemia: No Asthma: Yes Cancer: No Cardiac Disorders: Yes (mitral valve prolapse) CVA: No COPD: No CHF: No Dementia: No Diabetes: No GI Disorders: No Disorders: No HTN: Yes Hypercholesterolemia: No Liver Disease: No Seizures: No Thyroid Disease: No - Surgical History Abdominal Surgery: No Appendectomy: No Cardiac Surgery: Yes (ALONZO FILTER x2, loop recorder) Cholecystectomy: No Lung Surgery: No Neurologic Surgery: No Orthopedic Surgery: No - Immunization History Immunization Up to Date: Yes - Psycho-Social/Smoking History Smoking Status: No Smoking History: Never smoked Have you smoked in the past 12 months: No Number of Cigarettes Smoked Daily: 0 - Substance Abuse Hx (Audit-C & DAST Scrn) How often the patient has a drink containing alcohol: Never Score: In Men: 4 or > Positive; In Women: 3 or > Positive: 0 Screen Result (Pos requires Nsg. Audit-10AR): Negative In the last yr the pt used illegal drug/Rx for NonMed reason: No Score: Yes response is considered Positive: 0 Screen Result (Positive result requires Nsg. DAST-10): Negative *Physical Exam - Vital Signs Last Vital Signs Temp Pulse Resp BP Pulse Ox 98.5 F 90 19 131/89 100 08/12/20 19:20 08/12/20 19:20 08/12/20 19:20 08/12/20 19:20 08/12/20 19:20 Heart Score/ECG Review - ECG Intrepretation Comment:: 08/13/20 05:[address] elevations or T wave inversions Vent rate 84bpm KS interval 152ms QRS duration 84ms QT/QTc 384/453ms ED Treatment Course - LABORATORY CBC & Chemistry Diagram: 08/12/20 22:30 08/12/20 22:30 Discharge - Discharge Information Problems reviewed: Yes Clinical Impression/Diagnosis: Factor V Leiden, Protein C deficiency, Protein S deficiency, DVT (deep venous thrombosis) - Follow up/Referral - Patient Discharge Instructions - Post Discharge Activity
[2020-08-12] MEDS ORDERED: MEPERIDINE HCL CARPU-JECT 25 MG/1 ML DISP.SYRIN IM ONE (20:51)
[2020-08-12] MEDS ORDERED: FONDAPARINUX SODIUM 5 MG/0.4 ML DISP.SYRIN SQ SCH (21:00)
[2020-08-12] MEDS ORDERED: FONDAPARINUX SODIUM 7.5 MG/0.6 ML SYRINGE SQ SCH (21:16)
[2020-08-12] MEDS ORDERED: MEPERIDINE HCL 25 MG/ML VIAL IM ONE (21:45)
[2020-08-12] MEDS: FONDAPARINUX SODIUM 7.5 MG/0.6 ML SYRINGE SQ SCH (21:51)
[2020-08-12 22:38] LABS: ARTERIAL BLD GAS O2 SATURATION 79.9 mmHg (95-98); ARTERIAL BLOOD GAS BASE EXCESS -1.5 mmol/L (-2-2); ARTERIAL BLOOD GAS pH 7.394 (7.350-7.450); BASO % 1.3 % (0-2.0); HEMATOCRIT 38.2 % (35.4-49); HEMOGLOBIN 12.5 GM/dL (11.7-16.9); LYMPH % 28.7 % (8-40); MCH 24.5 pg (25.7-33.7); MCHC 32.8 g/dl (32.0-35.9); MEAN CELL VOLUME 74.7 fl (80-96); MONO % 14.3 % (3.8-10.2); NEUT % 50.7 % (42.8-82.8); RBC 5.12 M/mm3 (4.00-5.60); WHITE BLOOD COUNT 4.3 K/mm3 (4.0-10.0)
[2020-08-12] MEDS ORDERED: morphine CARPU-JECT 4 MG/1 ML DISP.SYRIN IVPUSH ONE (22:39)
[2020-08-12 22:49] LABS: O2 CONTENT 75.3 % vol
[2020-08-12 23:00] LABS: ALBUMIN 3.6 g/dl (3.4-5.0); ALK PHOS 92 U/L (45-117); ANION GAP 6 MMOL/L (8-16); BILIRUBIN,TOTAL 0.3 mg/dL (0.2-1); BLOOD UREA NITROGEN 17.3 mg/dL (7-18); CALCIUM 8.6 mg/dL (8.5-10.1); CHLORIDE 105 mmol/L (98-107); CO2 27 mmol/L (21-32); GLUCOSE,RANDOM 66 mg/dL (74-106); POTASSIUM 3.7 mmol/L (3.5-5.1); SGOT/AST 27 U/L (15-37); SGPT/ALT 32 U/L (13-61); SODIUM 137 mmol/L (136-145); TOT PROT 9.4 g/dl (6.4-8.2)
--- NOTE | 2020-08-12 23:00 | PDOC ---
Documentation entered by Gale Franco SCRIBE, acting as scribe for Emily Valentine MD. Emily Valentine MD: This documentation has been prepared by the michelibeSalvador Sydney, SCRIBE, under my direction and personally reviewed by me in its entirety. I confirm that the documentation accurately reflects all work, treatment, procedures, and medical decision making performed by me. Attending Attestation - Resident Resident Name: Mine Delgado - ED Attending Attestation I have performed the following: I have examined & evaluated the patient, The case was reviewed & discussed with the resident, I agree w/resident's findings & plan, Exceptions are as noted - HPI HPI: 08/12/20 20:51 Patient is a 49 year old male with a significant past medical history of hypercoagulopathic, DVT/PE w/ IVC filters in the setting of factor V, protein c/s deficiency, AC trials in the past stopped 2/2 GIB (prescribed arixtra but non-compliant) who presents to the ED with one week of right medial upper arm swelling. Patient also endorses some shortness of breath. Denies fever, chills, chest pain, nausea, vomiting, diarrhea, or urinary changes. Allergies: As per Nurse notes PCP: Dr. Gómez - Physicial Exam PE: 08/12/20 20:53 GENERAL: Well-appearing, well-nourished. No apparent distress. HEENT: Normocephalic, atraumatic. PERRL, EOM intact. CARDIOVASCULAR: Normal S1, S2. Regular rate and rhythm. PULMONARY: Clear to auscultation bilaterally. ABDOMEN: Soft, non-distended, non-tender. EXTREMITIES: Normal ROM in all four extremities. No gross deformities. SKIN: +chronic thick and dark skin changes on UE and LE secondary to edema Warm, dry. NEUROLOGICAL: No focal neurological deficits. - Medical Decision Making 08/12/20 22:58 Pt's d-dimer is 1103; pt complains of pains wherever he has swelling of blood clots 0 area in his groin bilaterally, as well as the right upper arm. Pt treatedwith demerol as well as repeat dose of morphine and benadryl 08/13/20 00:03 PT WILL BE ADMITTED; COREMAKER BENCH NEEDS TO GET HIS MEDICAL INSURANCE TO COVER HIS ARIXTRA 08/13/20 00:04 Heart Score/ECG Review - ECG Intrepretation Rhythm: Regular Rhythm - P and MI Delta Wave(s) Present: No WPW: No - QRS Poor R Wave Progression: No Q Wave Present: No - ST and T Early Repolarization: No Non Specific ST-T Wave changes: No Flattened T Waves: No Prolonged Q-T Interval: No - ECG Impressions Normal ECG: Yes Non-specific ST Elevation: No Ischemic Changes: No Bradycardia: No Torsades rylan Pointes: No WPW: No Discharge - Discharge Information Problems reviewed: Yes Clinical Impression/Diagnosis: Factor V Leiden, Protein C deficiency, Protein S deficiency, DVT (deep venous thrombosis) - Follow up/Referral Referrals: Morgan Gómez NP [Primary Care Provider] - - Patient Discharge Instructions - Post Discharge Activity
[2020-08-12 23:01] LABS: INR 1.09 (0.83-1.09); PROTHROMBIN TIME (PATIENT) 12.9 SEC (9.7-13.0)
[2020-08-12 23:04] LABS: ACTIVATED PTT 35.4 SECONDS (25.2-36.5)
[2020-08-12] MEDS ORDERED: morphine SULFATE 4 MG/ML VIAL ONE (23:10)
[2020-08-12 23:24] LABS: MEAN PLT VOLUME 11.1 fl (7.5-11.1); PLATELET COUNT 84 K/MM3 (134-434)
[2020-08-12 23:25] LABS: ANISOCYTOSIS 2+; MACROCYTOSIS 1+; PLATELET ESTIMATE MOD DECREASED
--- NOTE | 2020-08-12 23:52 | PN ---
<Mercy Powell - Last Filed: 08/13/20 02:18> Teaching Attending Note Name of Resident: Sharita Crowley ATTENDING PHYSICIAN STATEMENT I saw and evaluated the patient. I reviewed the resident's note and discussed the case with the resident. I agree with the resident's findings and plan as documented. SUBJECTIVE: Patient is a 49 year old man with a PMH of Penicillin/contrast allergy, Corneal surgery, Hypercoagulable state, DVT's/PE's (s/p SVC and IVC filters), Factor V leiden deficiency, Protein C&S deficiencies and Asthma presenting to the ER due to one hour of sudden onset SOB which began as he was getting ready for work. Additionally, he is also complaining of left sided, non-radiating, sharp, ple uritic chest pain that is similar to his previous PE's. He is currently not anticoagulated as he states his medication is too expensive, and the last time he was on it was three weeks ago when he was also treated for a PE. Patient denies abdominal pain, headache, palpitations, dizziness, fever, chills, nausea, vomiting, diarrhea, constipation, dysuria, frequency, urgency, melena, hematochezia or hematuria. Denies alcohol, tobacco or illicit drug use. No sick contacts or recent travels. Family history of asthma in mother, mitral valve prolapse in mother and hypercoagulable state in son and grandfather. OBJECTIVE: Alert and not in respiratory distress Vital Signs Period Temp Pulse Resp BP Sys/Pittman Pulse Ox Last 24 Hr 98.5 F 90 19 131/89 100 HEENT: No Jaundice, eye redness or discharge, oval right pupil, EOMI. Normocephalic, atraumatic. External ears are normal and hearing is grossly intact. No nasal discharge. Neck: Supple, nontender. No palpable adenopathy or thyromegaly. No JVD Chest: Good effort. Clear to auscultation and percussion. Heart: Regular. No S3, rub or murmur Abdomen: Not distended, soft, nontender and no HSM. No rebound or guarding. Normal bowel sounds. Ext: Peripheral pulses intact. LLE edema. Skin: Dry, scaly skin with diffuse nodular lesions. No ecchymosis. Neuro: Alert. Oriented x3. CN 2-12 grossly intact. Sensation grossly intact in all four extremities and DTR are symmetric. Psych: Appropriate mood and affect. Good insight. Home Medications Medication Instructions Recorded Albuterol Sulfate Inhaler - 1 - 2 inh PO QID 07/17/14 [Ventolin HFA Inhaler -] Metoprolol Tartrate [Lopressor -] 50 mg PO BID 07/17/14 Morphine Sulfate 15 mg PO Q6H PRN 05/31/20 Hydrocortisone 1% Cream [Hytone 1% 1 applic TP DAILY PRN 06/09/20 Cream -] Mineral Oil/Hydrophil Petrolat 50 gm TP PRN 06/09/20 [Aquaphor Healing Ointment] Docusate Sodium [Colace] 100 mg PO BID #30 capsule 06/11/20 Fondaparinux Sodium [Arixtra] 7.5 mg SQ DAILY #30 syringe 06/11/20 Sennosides [Senna] 8.6 mg PO PRN #30 tablet 06/11/20 Abnormal Lab Results 08/12/20 08/12/20 08/12/20 22:30 22:30 22:30 MCV 74.7 L MCH 24.5 L D RDW 22.0 H Plt Count 84 L Monocytes % 14.3 H Eosinophils % 5.0 H D D-Dimer 1103 H ABG pO2 44.0 L ABG O2 Sat (Measured) 79.9 L Anion Gap Random Glucose Total Protein 08/12/20 22:30 MCV MCH RDW Plt Count Monocytes % Eosinophils % D-Dimer ABG pO2 ABG O2 Sat (Measured) Anion Gap 6 L Random Glucose 66 L Total Protein 9.4 H Current Medications Generic Name Dose Route Start Last Admin Trade Name Freq PRN Reason Stop Dose Admin Fondaparinux 7.5 mg 08/12/20 21:45 08/12/20 21:51 Fondaparinux Sodium SQ 7.5 mg DAILY NEREIDA Administration ASSESSMENT AND PLAN: 1. SOB/?Recurrent VTE/Hypercoagulable state - Now comfortable off oxygen. May have had another VTE due to nonadherence with anticoagulant medication. Cannnot get CTA chest/thorax due to contrast allergy. Restarted on Fondaparinux 7.5 mg SQ daily. Consult Pulmonary. No acute abnormality on CXR - shows SVC filter. Oxygen saturation is normal on room air. pO2 of 44 on the ABG may be an error. EKG shows NSR at 84/minute and QTc [address]-T wave changes. Initial troponin is negative. Will avoid drugs that may prolong QTc. Low platelet likely related to underlying condition. Viral testing for COVID-19 ordered and patient placed on airborne, droplet and contact isolation. Will admit to telemetry, get LDH, trend troponin, repeat EKG, get ECHO and consult Cardiology. 2. DVT prophylaxis -On Fondaparinux. 3. Advance directives - Full code <Sharita Crowley - Last Filed: 08/13/20 05:01> Teaching Attending Note ATTENDING PHYSICIAN STATEMENT I saw and evaluated the patient. I reviewed the resident's note and discussed the case with the resident. I agree with the resident's findings and plan as documented. SUBJECTIVE: OBJECTIVE: ASSESSMENT AND PLAN:
[2020-08-13] MEDS ORDERED: ALBUTEROL SO4 HFA INHALER IH PRN (02:26)
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
[2020-08-13 04:34] LABS: VENOUS BASE EXCESS -1.5 mmol/L (-2-2); VENOUS O2 SATURATION 98.5 % (70-80); VENOUS PCO2 23.4 mmHg (38-52); VENOUS PH 7.536 (7.310-7.410)
[2020-08-13] MEDS ORDERED: MORPHINE SULFATE 2 MG/ML VIAL IVPUSH ONE (05:04)
[2020-08-13] MEDS ORDERED: MORPHINE SULFATE 2 MG/ML VIAL ONE (05:12)
[2020-08-13] MEDS ORDERED: PT OWN MED DRAWER 7, Y5N ONE (09:11)
[2020-08-13] MEDS: FONDAPARINUX SODIUM 7.5 MG/0.6 ML SYRINGE SQ SCH (09:31)
--- NOTE | 2020-08-13 10:32 | EKG ---
Test Reason : Blood Pressure : / mmHG Vent. Rate : 084 BPM Atrial Rate : 084 BPM P-R Int : 152 ms QRS Dur : 084 ms QT Int : 384 ms P-R-T Axes : 078 059 062 degrees QTc Int : 453 ms NORMAL SINUS RHYTHM WITH SINUS ARRHYTHMIA RIGHT ATRIAL ENLARGEMENT BORDERLINE ECG WHEN COMPARED WITH ECG OF 08-JUN-2020 04:40, NO SIGNIFICANT CHANGE WAS FOUND Confirmed by ODALIS BONILLA MD ([id number]) on 08/13/2020 10:31:36 AM Referred By: Confirmed By:ODALIS BONILLA MD
--- NOTE | 2020-08-13 17:48 | PN ---
Physical Exam: SUBJECTIVE: Patient seen and examined OBJECTIVE: Vital Signs Period Temp Pulse Resp BP Sys/Pittman Pulse Ox Last 24 Hr 98 F-98.5 F 69-90 16-19 131-142/89-96 97-100 GENERAL: The patient is awake, alert, and fully oriented, in no acute distress. HEAD: Normal with no signs of trauma. EYES: PERRL, extraocular movements intact, sclera anicteric, conjunctiva clear. No ptosis. ENT: Ears normal, nares patent, oropharynx clear without exudates, moist mucous membranes. NECK: Trachea midline, full range of motion, supple. LUNGS: Breath sounds equal, clear to auscultation bilaterally, no wheezes, no crackles, no accessory muscle use. HEART: Regular rate and rhythm, S1, S2 without murmur, rub or gallop. ABDOMEN: Soft, nontender, nondistended, normoactive bowel sounds, no guarding, no rebound, no hepatosplenomegaly, no masses. EXTREMITIES: 2+ pulses, warm, well-perfused, no edema. NEUROLOGICAL: Cranial nerves II through XII grossly intact. Normal speech, gait not observed. PSYCH: Normal mood, normal affect. Skin: Dry, scaly skin with diffuse nodular lesions on erythematous base. No ecchymosis Laboratory Results - last 24 hr 08/12/20 08/12/20 08/12/20 22:30 22:30 22:30 WBC 4.3 RBC 5.12 Hgb 12.5 Hct 38.2 D MCV 74.7 L MCH 24.5 L D MCHC 32.8 RDW 22.0 H Plt Count 84 L MPV 11.1 D Absolute Neuts (auto) 2.2 Neutrophils % 50.7 D Lymphocytes % 28.7 D Monocytes % 14.3 H Eosinophils % 5.0 H D Basophils % 1.3 Nucleated RBC % 0 Platelet Estimate Mod decreased Platelet Comment Giant platelets Polychromasia 1+ Anisocytosis 2+ Microcytosis 1+ Macrocytosis 1+ PT with INR INR PTT (Actin FS) D-Dimer 1103 H Anticoagulation Therapy No Result Required. Puncture Site No Result Required. Patient Temperature No Result Required. ABG pH 7.394 ABG pCO2 38.60 ABG pO2 44.0 L ABG HCO3 23.1 ABG O2 Sat (Measured) 79.9 L ABG O2 Content 75.3 ABG Base Excess -1.5 Jacinto Test No Result Required. VBG pH POC VBG pCO2 POC VBG pO2 VBG HCO3 VBG O2 Sat (Lita) VBG Base Excess Patient On Oxygen No Result Required. O2 Delivery Device No Result Required. Oxygen Flow Rate No Result Required. Vent Mode No Result Required. Vent Rate No Result Required. Mechanical Rate No Result Required. PEEP No Result Required. Pressure Support Vent No Result Required. Sodium Potassium Chloride Carbon Dioxide Anion Gap BUN Creatinine Est GFR (CKD-EPI)AfAm Est GFR (CKD-EPI)NonAf Random Glucose Calcium Total Bilirubin AST ALT Alkaline Phosphatase Total Protein Albumin 08/12/20 08/12/20 08/13/20 22:30 22:30 04:20 WBC RBC Hgb Hct MCV MCH MCHC RDW Plt Count MPV Absolute Neuts (auto) Neutrophils % Lymphocytes % Monocytes % Eosinophils % Basophils % Nucleated RBC % Platelet Estimate Platelet Comment Polychromasia Anisocytosis Microcytosis Macrocytosis PT with INR 12.90 INR 1.09 PTT (Actin FS) 35.4 D-Dimer Anticoagulation Therapy Puncture Site Patient Temperature ABG pH ABG pCO2 ABG pO2 ABG HCO3 ABG O2 Sat (Measured) ABG O2 Content ABG Base Excess Jacinto Test VBG pH 7.536 H POC VBG pCO2 23.4 L POC VBG pO2 109.3 H VBG HCO3 19.4 L VBG O2 Sat (Lita) 98.5 H VBG Base Excess -1.5 Patient On Oxygen O2 Delivery Device Oxygen Flow Rate Vent Mode Vent Rate Mechanical Rate PEEP Pressure Support Vent Sodium 137 Potassium 3.7 Chloride 105 Carbon Dioxide 27 Anion Gap 6 L BUN 17.3 Creatinine 1.0 Est GFR (CKD-EPI)AfAm 101.98 Est GFR (CKD-EPI)NonAf 87.99 Random Glucose 66 L Calcium 8.6 Total Bilirubin 0.3 AST 27 ALT 32 Alkaline Phosphatase 92 Total Protein 9.4 H Albumin 3.6 Active Medications Generic Name Dose Route Start Last Admin Trade Name Freq PRN Reason Stop Dose Admin Albuterol Sulfate 2 puff 08/13/20 02:26 Ventolin Hfa Inhaler - IH Q4H PRN SHORT OF BREATH/WHEEZING Fondaparinux 7.5 mg 08/12/20 21:45 08/13/20 09:31 Fondaparinux Sodium SQ 7.5 mg DAILY NEREIDA Administration ASSESSMENT/PLAN: 49 year old man with a PMH of Penicillin/contrast allergy, Corneal surgery, Hypercoagulable state, DVT's/PE's (s/p SVC and IVC filters), Factor V leiden deficiency, Protein C&S deficiencies and Asthma presenting to the ER due to one hour of sudden onset SOB # dyspnea, resolved concerns for recurrent VTE, Factor V leiden deficiency, Protein C&S deficiencies non adherent to AC 100% ON ROOM AIR, non tachy, NSR on EKG Cannot order CTa as pt is allergic to contrast. case discussed with tooling specialist, will not pursue P/E scan at this time continue with fondaparinaux. SW consult DVT prophylaxis -on fondaparinaux Visit type - Emergency Visit Emergency Visit: Yes ED Registration Date: 08/12/20 Care time: The patient presented to the Emergency Department on the above date and was hospitalized for further evaluation of their emergent condition. - New Patient This patient is new to me today: Yes Date on this admission: 08/13/20 - Critical Care Critical Care patient: No - Discharge Referral Referred to [facility] Med P.C.: No
--- NOTE | 2020-08-13 21:15 | HOSP ---
Subjective - Review of Symptoms Events since last encounter: Hospitalist Encounter Was notified by the RN, that the patient is refusing to stay unless he receives IV pain medication, was asked to assess. Arrived to bedside, patient is asleep but arousable, oriented x3. Patient reports having generalized bodyaches and SOB. Patient is refusing to be examined, repeat EKG or have vital signs taken by the nurse. Discussed the risks and dangers of leaving against medical advice, patient verbalized understanding. I informed the patient that I will check the [place] [employer] to verify the Demerol medication he is on. Pulmonary: Yes: Dyspnea Musculoskeletal: Yes: Other (Generalized pain) Physical Examination Vital Signs: Vital Signs Temperature 98 F 08/13/20 05:54 Pulse Rate 69 08/13/20 05:54 Respiratory Rate 16 08/13/20 05:54 Blood Pressure 132/91 08/13/20 05:54 O2 Sat by Pulse Oximetry (%) 97 08/13/20 05:54 Findings/Remarks: Patient refused to be examined Labs: CBC, BMP 08/12/20 22:30 08/12/20 22:30 Hospitalist Encounter Assessment: This is a 49 y/o male with a PMHx of multiple DVTs/PEs, filters including IVCs, factor V leiden deficiency, protein C/S deficiency, asthma, multiple allergies including to contrast, and with poor adherence to anticoagulation regimen. Who presented to the ED with SOB and chest pain. Admitted to Telemetry for Chest Pain and SOB. Outcome: [place] [employer] checked patient is not on Demerol currently.
[2020-08-14] MEDS ORDERED: morphine SULFATE IMMEDIATE RELEASE 30 MG TAB PO PRN (09:21)
--- NOTE | 2020-08-14 09:24 | PN ---
Physical Exam: SUBJECTIVE: Patient seen and examined at the bedside. Tells me that he wants to sign out ama because we are not treating his chest pain. He wants IV morphine only, not PO. Wants demerol IV. Explained POC to Mr. Ballard and offered morphine 15mg po ir after reviewing his ISTOP. Explained to him that for chest pain he will need a court monitor as well as frequent vital signs which he has been refusing. he agreed to have the monitor and vitals done so long as we manage his pain. ordered morphine 15mg q4 prn po. Explained risk associated with signing out AMA, including sudden cardiac arrest, patient agrees to stay so long as pain is managed. he agrees to see refrigeration technician, pulmonlogist during his stay OBJECTIVE: Patient is a 49 year old male with a past medical history of multiple allergies, corneal surgery, hypercoagulable state, DVT's/PE's (s/p SVC and IVC filters), gactor V leiden deficiency, Protein C&S deficiencies and asthma. He presents to the ED on 08/12/2020 with sudden onset SOB and chest pain. PHYSICAL EXAM: GENERAL: The patient is awake, alert, and fully oriented, in no acute distress. disheveled HEAD: Normal with no signs of trauma. EYES: PERRL, extraocular movements intact, sclera anicteric, conjunctiva clear. No ptosis. ENT: Ears normal, nares patent, oropharynx clear without exudates, moist mucous membranes. NECK: Trachea midline, full range of motion, supple. LUNGS: Breath sounds equal, diminished bilaterally, no wheezing HEART: Regular rate and rhythm on auscultaion, refusing court monitor but agreeing ABDOMEN: Soft, nontender, nondistended, normoactive bowel sounds EXTREMITIES: no edema. right upper arm small area of induration that patient states happend after an IV infiltrated at another hospital NEUROLOGICAL: Normal speech, gait not observed. PSYCH:uncooperative, calm SKIN: very dry poor skin turgor Laboratory Results - last 24 hr 08/12/20 22:13 COVID-19 (JAIME) Not detected Active Medications Generic Name Dose Route Start Last Admin Trade Name Freq PRN Reason Stop Dose Admin Albuterol Sulfate 2 puff 08/13/20 02:26 Ventolin Hfa Inhaler - IH Q4H PRN SHORT OF BREATH/WHEEZING Fondaparinux 7.5 mg 08/12/20 21:45 08/13/20 09:31 Fondaparinux Sodium SQ 7.5 mg DAILY NEREIDA Administration Metoprolol Tartrate 50 mg 08/14/20 10:00 Lopressor - PO BID NEREIDA Morphine Sulfate 15 mg 08/14/20 09:21 Msir - PO Q4H PRN PAIN LEVEL 7 - 10 ASSESSMENT/PLAN: see problem list Covid Status = negative Problem List - Problems (1) Chest pain Assessment/Plan: patient reports chest pain severe, has multiple allergies to pain medications but has tolerated morphine 15mg IR in the past. IStOP reveals patient was dispensed morphine 15mg IR as an outpatient. Will give a trial of morphine PO only and monitor pain levels. continue cardiac workup for chest pain and will be seen by refrigeration technician initial troponin negative, patient refusing further blood draws to re check troponins for echo/stress test to further evaluate Code(s): R07.9 - CHEST PAIN, UNSPECIFIED Qualifiers: Chest pain type: unspecified Qualified Code(s): R07.9 - Chest pain, unspecified (2) Factor V Leiden Code(s): D68.51 - ACTIVATED PROTEIN C RESISTANCE (3) Hypercoagulable state Code(s): D68.59 - OTHER PRIMARY THROMBOPHILIA (4) Hypertension Assessment/Plan: bp stable, on toprol Code(s): I10 - ESSENTIAL (PRIMARY) HYPERTENSION (5) Shortness of breath Assessment/Plan: dyspnea now resolved. tolerating room air concerns for recurrent VTE, Factor V leiden deficiency, Protein C&S deficiencies as patient is non adherent to AC 100% on room air, NSR on EKG. now agrees to be monitored on tele as well as have vitals signs taken chlorinator operator following continue with fondaparinaux and patient states he will f/u with his census taker as an outpatient Code(s): R06.02 - SHORTNESS OF BREATH (6) Right arm pain Assessment/Plan: Right upper arm small area of induration that patient states happend after an IV infiltrated at another hospital. will send vascular study to rule out DVT. Code(s): M79.601 - PAIN IN RIGHT ARM Visit type - Emergency Visit Emergency Visit: Yes ED Registration Date: 08/12/20 Care time: The patient presented to the Emergency Department on the above date and was hospitalized for further evaluation of their emergent condition. - New Patient This patient is new to me today: Yes Date on this admission: 08/14/20 - Critical Care Critical Care patient: No - Discharge Referral Referred to [facility] No
[2020-08-14] MEDS ORDERED: diphenhydrAMINE HCL 25 MG CAPSULE (FP) PO PRN (09:25)
--- NOTE | 2020-08-14 09:30 | CON.CARD ---
Consult Consult Specialty:: cardiology Reason for Consultation:: chest pain; hx PE - History of Present Illness Chief Complaint: Pt A&Ox3; no chest pain, SOB, or dyspnea. c/o intermittent LE pain from "DVT"--> home PO morphine History of Present Illness: Mr. Ballard is a 49 year old black male with a significant past medical history of hypercoagulopathy, DVT/PE w/ IVC filters in the setting of factor V, protein c/s deficiency; AC in the past stopped secondary to GI bleed (prescribed arixtra but non-compliant), s/p implanted loop recorder ([facility] 03/2020), who presents to the ED with one week of right medial upper arm swelling. 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 PCP: Dr. Gómez (? [place]) - History Source History Provided By: Patient, Medical Record Limitations to Obtaining History: Poor Historian - Past Medical History Cardio/Vascular: Yes: HTN Pulmonary: Yes: Asthma (h/o astma-not currently symptomatic), Bronchitis, Pneu monia, Pulmonary Embolus. 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 History of Recent Travel: Yes ([place]) Home Medications - Allergies Allergies/Adverse Reactions: Allergies Allergy/AdvReac Type Severity Reaction Status Date / Time acetaminophen [From Tylenol] Allergy Severe Difficulty Verified 06/15/20 14:15 Breathing aspirin Allergy Severe Difficulty Verified 06/15/20 14:15 Breathing hydromorphone HCl Allergy Severe Difficulty Verified 06/15/20 14:15 [From Dilaudid] Breathing ibuprofen Allergy Severe Swelling Verified 06/15/20 14:15 ketorolac tromethamine Allergy Severe Swelling Verified 06/15/20 14:15 [From Toradol] oxycodone HCl [From Percocet] Allergy Severe Swelling Verified 06/15/20 14:15 Penicillins Allergy Severe Swelling Verified 06/15/20 14:15 tramadol HCl [From Ultram] Allergy Verified 06/15/20 14:15 - Home Medications Home Medications: Ambulatory Orders Albuterol Sulfate Inhaler - [Ventolin HFA Inhaler -] 1 - 2 inh PO QID 07/17/14 Metoprolol Tartrate [Lopressor -] 50 mg PO BID 07/17/14 Morphine Sulfate 15 mg PO Q6H PRN 05/31/20 Hydrocortisone 1% Cream [Hytone 1% Cream -] 1 applic TP DAILY PRN 06/09/20 Mineral Oil/Hydrophil Petrolat [Aquaphor Healing Ointment] 50 gm TP PRN 06/09/20 Docusate Sodium [Colace] 100 mg PO BID #30 capsule 06/11/20 Fondaparinux Sodium [Arixtra] 7.5 mg SQ DAILY #30 syringe 06/11/20 Sennosides [Senna] 8.6 mg PO PRN #30 tablet 06/11/20 Vital Signs: Vital Signs Temperature 98 F 08/13/20 05:54 Pulse Rate 69 08/13/20 05:54 Respiratory Rate 16 08/13/20 05:54 Blood Pressure 132/91 08/13/20 05:54 O2 Sat by Pulse Oximetry (%) 97 08/13/20 05:54 - Other Data Labs, Other Data: CBC, BMP 08/12/20 22:30 08/12/20 22:30 INR, PTT INR 1.09 (0.83-1.09) 08/12/20 22:30 Assessment/Plan 49 year old black male with a significant past medical history of hypercoagulopathy, DVT/PE w/ IVC filters in the setting of factor V, protein c/s deficiency, AC in the past stopped 2/2 GIB (prescribed arixtra but non- compliant), s/p implanted loop recorder,?opiate dependence, ?bronchial asthma, who presents to the ED with one week of right medial upper arm swelling. Patient also endorses some shortness of breath and chest pain, and says he had a syncopal episode. Pl: Vascular f/u of RUE swelling Noncompliant to Arixtra (says his insurance stopped covering it); f/u with transfer operator. Serial TNI and EKG (however, pt has been refusing further blood work, saying he is a "hard stick"). ECHo for LVEF, chamber sizes, valve status. Interrogation of implanted loop recorder. Stress MIBI (but pt is presently refusing, saying he has been told in the past that his heart is too strained on right side from PEs) Hydration Orthostatic vital signs. TSH
[2020-08-14] MEDS ORDERED: PT OWN MED DRAWER 7, Y5N ONE (10:49)
[2020-08-14] MEDS: METOPROLOL TARTRATE 50 MG TABLET (FP) PO SCH ×2 (10:57→21:26)
[2020-08-14] MEDS: FONDAPARINUX SODIUM 7.5 MG/0.6 ML SYRINGE SQ SCH (10:58)
[2020-08-14 12:06] LABS: CHOLESTEROL 130 mg/dL (50-200); HDL CHOLESTEROL 43 mg/dL (40-60); LDL CHOLESTEROL (ONLY SJRH) 82 mg/dL (5-100); TRIGLYCERIDES 68 mg/dL (0-150)
--- NOTE | 2020-08-14 12:39 | PN ---
Progress Note (short form) - Note Progress Note: PULMONARY CONSULTATION DICTATED 08/14/20 IMP CP/SOB,? SYNCOPE ?PE ,? CARDIAC H/O DVT/PE S/P IVC FILTER H/O FACTOR V LEIDEN,PROTEIN C/S DEFICIENCY NOT COMPLIANT WITH ARIXTRA ?ASTHMA HTN RUE SWELLING ? DVT PLAN O2 NEEDED AC DUPLEX UPPER AND LOWER EXT INHALED BRONCHODILATORS F/U CHEST X-RAYS DR RENTERIA Problem List - Problems (1) Protein C deficiency Code(s): D68.59 - OTHER PRIMARY THROMBOPHILIA (2) Protein S deficiency Code(s): D68.59 - OTHER PRIMARY THROMBOPHILIA (3) DVT (deep venous thrombosis) Code(s): I82.409 - ACUTE EMBOLISM AND THOMBOS UNSP DEEP VN UNSP LOWER EXTREMITY (4) Factor V Leiden Code(s): D68.51 - ACTIVATED PROTEIN C RESISTANCE (5) Asthma Code(s): J45.909 - UNSPECIFIED ASTHMA, UNCOMPLICATED (6) Chest pain Code(s): R07.9 - CHEST PAIN, UNSPECIFIED Qualifiers: Chest pain type: unspecified Qualified Code(s): R07.9 - Chest pain, unspecified (7) Hypertension Code(s): I10 - ESSENTIAL (PRIMARY) HYPERTENSION (8) Shortness of breath Code(s): R06.02 - SHORTNESS OF BREATH
--- NOTE | 2020-08-14 15:19 | CONS ---
PULMONARY CONSULTATION DATE OF CONSULTATION: 08/14/2020 REFERRING PHYSICIAN: Mercy Powell MD HISTORY: Patient is a 49-year-old male known to me from previous hospitalization with a past medical history of hypercoagulability, a history of DVT, PE, status post IVC filters, history of factor V Leiden deficiency, protein C and protein S deficiency, currently maintained on Arixtra, has been noncompliant, stopped approximately 3 weeks ago; status post loop recorder at [facility] in March 2020, admitted to [facility] on August 12 with complaint of 1 week history right upper arm swelling as well as some shortness of breath and chest discomfort. Patient states he has shortness of breath with exertion. He also had chest pain which is central in character lasting a few minutes as well as stabbing sensation. Patient states that the pain started on Thursday evening approximately 7 p.m. Patient is a nonsmoker. He denies any history of occupational exposures to chemicals or fumes. There is no history of recent travel. Patient states that he stopped taking his Arixtra secondary to not covered by insurance plan. Of note, is the patient on admission had D-dimer which was mildly elevated. PAST MEDICAL HISTORY: Again, includes factor V Leiden deficiency, protein C and S deficiency, history of multiple DVTs, PEs, asthma. SOCIAL HISTORY: Nonsmoker. 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 CURRENT MEDICATIONS: Include fondaparinux, albuterol, Lopressor, Benadryl and morphine p.r.n. REVIEW OF SYSTEMS: No orthopnea. No PND. Positive dyspnea on exertion. Positive chest discomfort. Has right upper extremity swelling and discomfort. PHYSICAL EXAMINATION: General: Patient is a well-developed, well-nourished male awake, alert in no acute distress. Vital Signs: He is afebrile. Blood pressure is 128/76. Respiratory rate is 16. O2 saturation is 99% on room air. HEENT: Normocephalic, atraumatic. Neck: Supple. Heart: Regular. S1, S2. Chest: Clear. Abdomen: Soft. Bowel sounds are positive. Extremities: No cyanosis or edema. LABORATORIES: WBC is 4.3, hemoglobin of 12.5, hematocrit 38.2 with a platelet count of 84,000. D-dimer is 1103. Venous blood gas 7.56, pCO2 of 23, a pO2 of 109, a bicarbonate of 19, a saturation of 98.5 on unknown quantity of oxygen. BUN is 17, creatinine 1 and the total protein 9.4. Chest x-ray: Shoulder calcifications and early atelectasis infiltrate at the bases. IMPRESSION: 1. Chest pain, shortness of breath, questionable syncope, rule out possible pulmonary embolus. Although patient is at increased risk secondary stopping anticoagulation, need to rule out possible cardiac. 2. History of deep vein thrombosis, pulmonary embolus, status post inferior vena cava filter. 3. History of factor V Leiden deficiency, protein S and protein C deficiency, not compliant with Arixtra. 4. Asthma. 5. Hypertension. 6. Right upper extremity rule out possible deep vein thrombosis. PLAN: O2 as needed. Continue anticoagulation. Duplex upper and lower extremities. Inhaled bronchodilators. Followup chest x-rays. Also stress compliance with anticoagulation. PACO RENTERIA M.D. [id number]
[2020-08-15 00:11] VITALS: BP 121/75; PULSE 76; TEMP 98.8
--- NOTE | 2020-08-15 08:55 | DS ---
Physical Exam: SUBJECTIVE: called by primary RN that patient wants to sign out AMA. Discussed risks of signing out ama such as sudden cardiac arrest and patient sign ama papers in my presences. He wants to go to [place] and see his PCP. He has shown me that he has the capacity to make his own medical decisions. He is refusing labs, vitals, and any further cardiac workup for his chest pain. He is refusing all further imaging ordered for him. OBJECTIVE: AMA Vital Signs Period Temp Pulse Resp BP Sys/[place]man Pulse Ox Last 24 Hr 98.1 F-98.8 F 74-91 16-20 116-128/71-77 99-100 PHYSICAL EXAM GENERAL: The patient is awake, alert, and fully oriented, in no acute distress. disheveled HEAD: Normal with no signs of trauma. EYES: PERRL, extraocular movements intact, sclera anicteric, conjunctiva clear. No ptosis. ENT: moist mucous membranes. LUNGS: refusing auscultation HEART: refusing engine monitor PSYCH:uncooperative, calm LABS Laboratory Results - last 24 hr 08/12/20 22:30 Sodium 137 Potassium 3.7 Chloride 105 Carbon Dioxide 27 Anion Gap 6 L BUN 17.3 Creatinine 1.0 Est GFR (CKD-EPI)AfAm 101.98 Est GFR (CKD-EPI)NonAf 87.99 Random Glucose 66 L Calcium 8.6 Total Bilirubin 0.3 AST 27 ALT 32 Alkaline Phosphatase 92 Creatine Kinase 592 H Creatine Kinase Index 0.7 CK-MB (CK-2) 4.5 H Troponin I < 0.02 Total Protein 9.4 H Albumin 3.6 Triglycerides 68 Cholesterol 130 Total LDL Cholesterol 82 HDL Cholesterol 43 TSH 2.11 Free T4 0.83 HOSPITAL COURSE: Date of Admission:08/12/20 Date of Discharge: 08/15/20 Minutes to complete discharge: 45 Discharge Summary Problems reviewed: Yes Reason For Visit: HYPERCOAGULABLE STATE, PULMONARY EMBOLISM Current Active Problems Protein C deficiency (Acute) Protein S deficiency (Acute) Right arm pain (Acute) Shortness of breath (Acute) DVT (deep venous thrombosis) (Chronic) Factor V Leiden (Chronic) Condition: Guarded - Instructions Diet, Activity, Other Instructions: Mr Ballard You are leaving against medical advise as your cardiac workup has not yet been completed. Please return to the hospital if you have chest pain. Please follow up with your primary care doctor within 3 days. Please follow up with your photolith operator. Referrals: Morgan Gómez NP [Primary Care Provider] - Disposition: AGAINST MEDICAL ADVICE - Home Medications Comprehensive Discharge Medication List: Ambulatory Orders Albuterol Sulfate Inhaler - [Ventolin HFA Inhaler -] 1 - 2 inh PO QID 07/17/14 Metoprolol Tartrate [Lopressor -] 50 mg PO BID 07/17/14 Morphine Sulfate 15 mg PO Q6H PRN 05/31/20 Hydrocortisone 1% Cream [Hytone 1% Cream -] 1 applic TP DAILY PRN 06/09/20 Mineral Oil/Hydrophil Petrolat [Aquaphor Healing Ointment] 50 gm TP PRN 06/09/20 Docusate Sodium [Colace] 100 mg PO BID #30 capsule 06/11/20 Fondaparinux Sodium [Arixtra] 7.5 mg SQ DAILY #30 syringe 06/11/20 Sennosides [Senna] 8.6 mg PO PRN #30 tablet 06/11/20 Fondaparinux Sodium 7.5 mg SQ DAILY ml 08/15/20 Problem List - Problems (1) Chest pain Code(s): R07.9 - CHEST PAIN, UNSPECIFIED Qualifiers: Chest pain type: unspecified Qualified Code(s): R07.9 - Chest pain, unspecified (2) Factor V Leiden Code(s): D68.51 - ACTIVATED PROTEIN C RESISTANCE (3) Hypercoagulable state Code(s): D68.59 - OTHER PRIMARY THROMBOPHILIA (4) Hypertension Code(s): I10 - ESSENTIAL (PRIMARY) HYPERTENSION (5) Shortness of breath Code(s): R06.02 - SHORTNESS OF BREATH (6) Right arm pain Code(s): M79.601 - PAIN IN RIGHT ARM This patient is new to me today: No Emergency Visit: Yes ED Registration Date: 08/12/20 Care time: The patient presented to the Emergency Department on the above date and was hospitalized for further evaluation of their emergent condition. Critical Care patient: No - Discharge Referral Referred to [facility] No
== END 2020-08-15 09:18 | disposition left against medical advice (07) | DRG 144 ==
LOC: JER 19:16 → JERBED 20:56 → J4S 08-13 23:30
PROVIDERS: ADMIT Internal Medicine; ATTEND Nurse Practitioner Family
DX: R06.02 Shortness of breath (principal); D68.59 Other primary thrombophilia; D68.51 Activated protein C resistance; R07.9 Chest pain, unspecified; J45.909 Unspecified asthma, uncomplicated; M79.601 Pain in right arm; Z86.711 Personal history of pulmonary embolism; Z86.718 Personal history of other venous thrombosis and embolism; J98.11 Atelectasis
CPT/HCPCS: 36415; 36600; 71046-TC-FY; 80053; 80061; 82550; 82553; 82803; 83721; 84439; 84443; 84484; 85025; 85379; 85610; 85730; 93005; 93010; 99285-25; U0003

== ENCOUNTER 2020-08-21 01:35 | Emergency (ER) | payer BC ==
[2020-08-21 01:50] VITALS: BP 116/83; PULSE 87; TEMP 98.2; BMI 23.8
--- NOTE | 2020-08-21 02:06 | PDOC ---
Attending Attestation - Resident Resident Name: David Perez - ED Attending Attestation I have performed the following: I have examined & evaluated the patient, The case was reviewed & discussed with the resident, I agree w/resident's findings & plan - HPI HPI: 08/21/20 03:46 see resident hpi - Physicial Exam PE: 08/21/20 03:46 see resident exam - Medical Decision Making 08/21/20 03:46 49-year-old male with history of pulmonary embolism complaining of shortness of breath and requesting his anticoagulant medication which he has been noncompliant with Patient is sleeping comfortably at this time in the emergency department, vital signs reviewed and not concerning at this time Due to unavailability of patient's regular medication will contact his pulmonary team for further recommendations Discharge - Discharge Information Problems reviewed: Yes Clinical Impression/Diagnosis: Dyspnea, Non compliance w medication regimen Condition: Fair - Follow up/Referral Referrals: Jeronimo Dotson MD [Primary Care Provider] - - Patient Discharge Instructions - Post Discharge Activity
--- NOTE | 2020-08-21 02:57 | PDOC ---
History of Present Illness - General Chief Complaint: Shortness of Breath Stated Complaint: sob Time Seen by Provider: 08/21/20 01:57 History Source: Patient Exam Limitations: No Limitations - History of Present Illness Initial Comments: 08/21/20 03:17 49M PMH Protein C/S deficiency, multiple prior VTEs w/ IVC filter in place, hx GIB on AC, noncompliant on fondaparinox [place] EMS found [place] sleeping [place] train station. Patient is requesting fondaparinox. States he was prescribed by Dr. Dotson and see Dr. Dotson, Jose Luis, and Rose frequently for the med. This patient has multiple prior visits to this ED with similar history. Past History - Medical History Allergies/Adverse Reactions: Allergies Allergy/AdvReac Type Severity Reaction Status Date / Time acetaminophen [From Tylenol] Allergy Severe Difficulty Verified 06/15/20 14:15 Breathing aspirin Allergy Severe Difficulty Verified 06/15/20 14:15 Breathing hydromorphone HCl Allergy Severe Difficulty Verified 06/15/20 14:15 [From Dilaudid] Breathing ibuprofen Allergy Severe Swelling Verified 06/15/20 14:15 ketorolac tromethamine Allergy Severe Swelling Verified 06/15/20 14:15 [From Toradol] oxycodone HCl [From Percocet] Allergy Severe Swelling Verified 06/15/20 14:15 Penicillins Allergy Severe Swelling Verified 06/15/20 14:15 tramadol HCl [From Ultram] Allergy Verified 06/15/20 14:15 Home Medications: Ambulatory Orders Albuterol Sulfate Inhaler - [Ventolin HFA Inhaler -] 1 - 2 inh PO QID 07/17/14 Metoprolol Tartrate [Lopressor -] 50 mg PO BID 07/17/14 Morphine Sulfate 15 mg PO Q6H PRN 05/31/20 Hydrocortisone 1% Cream [Hytone 1% Cream -] 1 applic TP DAILY PRN 06/09/20 Mineral Oil/Hydrophil Petrolat [Aquaphor Healing Ointment] 50 gm TP PRN 06/09/20 Docusate Sodium [Colace] 100 mg PO BID #30 capsule 06/11/20 Fondaparinux Sodium [Arixtra] 7.5 mg SQ DAILY #30 syringe 06/11/20 Sennosides [Senna] 8.6 mg PO PRN #30 tablet 06/11/20 Fondaparinux Sodium 7.5 mg SQ DAILY ml 08/15/20 Anemia: No Asthma: Yes Cancer: No Cardiac Disorders: Yes (mitral valve prolapse, DVTs, PE) CVA: No COPD: No CHF: No Dementia: No Diabetes: No GI Disorders: No Disorders: No HTN: Yes Hypercholesterolemia: No Liver Disease: No Seizures: No Thyroid Disease: No - Surgical History Abdominal Surgery: No Appendectomy: No Cardiac Surgery: Yes (ALONZO FILTER x2, loop recorder) Cholecystectomy: No Lung Surgery: No Neurologic Surgery: No Orthopedic Surgery: No - Immunization History Immunization Up to Date: Yes - Psycho-Social/Smoking History Smoking Status: No Smoking History: Never smoked Have you smoked in the past 12 months: No Number of Cigarettes Smoked Daily: 0 - Substance Abuse Hx (Audit-C & DAST Scrn) How often the patient has a drink containing alcohol: Never Score: In Men: 4 or > Positive; In Women: 3 or > Positive: 0 Screen Result (Pos requires Nsg. Audit-10AR): Negative In the last yr the pt used illegal drug/Rx for NonMed reason: No Score: Yes response is considered Positive: 0 Screen Result (Positive result requires Nsg. DAST-10): Negative Review of Systems - Review of Systems Comments:: 08/21/20 07:52 CONSTITUTIONAL: Denies F / C HEENT: Denies headache, lightheadedness, dizziness, sore throat, rhinorrhea RESP: c/o SOB CARD: Denies chest pain, palpitations GI: Denies N / V / D, inability to tolerate PO : Denies dysuria NEURO: Denies numbness, tingling, weakness MSK: Denies back pain SKIN: Denies rashes *Physical Exam - Vital Signs Last Vital Signs Temp Pulse Resp BP Pulse Ox 98.2 F 87 18 116/83 96 08/21/20 01:46 08/21/20 01:46 08/21/20 01:46 08/21/20 01:46 08/21/20 01:46 - Physical Exam 08/21/20 07:52 VS: nontachycardic, SaO2 100% on RA GEN: Disheveled, NAD, sleeping comfortably in hospital bed when not evaluated; awake and alert HEENT: NC/AT, EOMI, PERRL. No facial asymmetry. Normal voice. Supple neck w/ FROM. CV: S1/S2, RRR, no m/r/g LUNG: Nonlabored breathing, CTAB, no wheezes, crackles, rales, rhonchi. GI: Soft, ndnt, +BS, no guarding, no rebound. No masses. Neg CVAT b/l. MSK: No calf or popliteal TTP. No LE edema b/l. No obvious deformities of all extremities. SKIN: Warm, dry, no rashes appreciated. PSYCH: Disheveled, minimally cooperative, verbally threatening at times NEURO: Moving all extremities well. ambulatory w/ normal gait Medical Decision Making - Medical Decision Making 08/21/20 07:53 49M BIBEMS for SOB requesting fondaparinux. Hx multiple VTEs, protein c/s deficiency, factor V leiden. Noncompliant to outpatient fondaparinux. NAD, nondistressed breathing, VSS. - dw pharmacy - hospital do not have fondaporinux available at this moment - EKG 02:03 HR 78 intervals and axis wnl nsr no VENUS/D, no TWI - cardiac labs - call placed Dr. Amaya covering for Drs. Amaya / Rose / Mauri 08/21/20 04:[address] Amaya - he is unfamiliar with this patient Patient informed hospital does not have his medication in stock subsequently became agitated. patient refusing medical evaluation and work up. He was offered multiple times to stay until the morning for further evaluation and social work consult; which he refused. Left against medical advice. The patient expressed understanding of risk and benefits of doing so. Discharge - Discharge Information Problems reviewed: Yes Clinical Impression/Diagnosis: Dyspnea, Non compliance w medication regimen Condition: Fair Disposition: AGAINST MEDICAL ADVICE - Follow up/Referral Referrals: Jeronimo Dotson MD [Primary Care Provider] - - Patient Discharge Instructions - Post Discharge Activity
--- NOTE | 2020-08-21 09:39 | EKG ---
Test Reason : Blood Pressure : / mmHG Vent. Rate : 078 BPM Atrial Rate : 078 BPM P-R Int : 170 ms QRS Dur : 088 ms QT Int : 400 ms P-R-T Axes : 079 036 047 degrees QTc Int : 456 ms NORMAL SINUS RHYTHM NORMAL ECG WHEN COMPARED WITH ECG OF 12-AUG-2020 22:03, NO SIGNIFICANT CHANGE WAS FOUND Confirmed by Tez Santos ([id number]) on 08/21/2020 9:38:27 AM Referred By: Confirmed By:Tez Santos
--- NOTE | 2020-08-22 10:04 | EKG ---
Test Reason : Blood Pressure : / mmHG Vent. Rate : 078 BPM Atrial Rate : 078 BPM P-R Int : 168 ms QRS Dur : 090 ms QT Int : 404 ms P-R-T Axes : 079 035 043 degrees QTc Int : 460 ms NORMAL SINUS RHYTHM NORMAL ECG WHEN COMPARED WITH ECG OF 21-AUG-2020 02:03, NO SIGNIFICANT CHANGE WAS FOUND Confirmed by Tez Santos ([id number]) on 08/22/2020 10:03:45 AM Referred By: Confirmed By:Tez Santos
== END 2020-08-21 04:42 | disposition left against medical advice (07) ==
LOC: JER 01:35
DX: R06.00 Dyspnea, unspecified (principal)
CPT/HCPCS: 93005; 93010; 99285-25

== ENCOUNTER 2020-08-24 23:18 | Emergency (ER) | payer BC ==
[2020-08-24 23:23] VITALS: BP 149/72; PULSE 73; TEMP 97; BMI 23.8
[2020-08-24] MEDS ORDERED: MEPERIDINE HCL 25 MG/ML VIAL IM ONE (23:51)
--- NOTE | 2020-08-25 00:08 | PDOC ---
Documentation entered by Michael Casas SCRIBE, acting as scribe for Emily Valentine MD. Emily Valentine MD: This documentation has been prepared by the Augusto bustillos Xhesika, SCRIBE, under my direction and personally reviewed by me in its entirety. I confirm that the documentation accurately reflects all work, treatment, procedures, and medical decision making performed by me. 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 Patient was seen here in the ED 08/12/20 for DVT workup. Denies fever, chills, chest pain, nausea, vomiting, diarrhea, or urinary changes. Allergies: As per Nurse notes PCP: Dr. Gómez Past History - Medical History Allergies/Adverse Reactions: Allergies Allergy/AdvReac Type Severity Reaction Status Date / Time acetaminophen [From Tylenol] Allergy Severe Difficulty Verified 08/24/20 23:23 Breathing aspirin Allergy Severe Difficulty Verified 08/24/20 23:23 Breathing hydromorphone HCl Allergy Severe Difficulty Verified 08/24/20 23:23 [From Dilaudid] Breathing ibuprofen Allergy Severe Swelling Verified 08/24/20 23:23 ketorolac tromethamine Allergy Severe Swelling Verified 08/24/20 23:23 [From Toradol] oxycodone HCl [From Percocet] Allergy Severe Swelling Verified 08/24/20 23:23 Penicillins Allergy Severe Swelling Verified 08/24/20 23:23 tramadol HCl [From Ultram] Allergy Verified 08/24/20 23:23 Home Medications: Ambulatory Orders Albuterol Sulfate Inhaler - [Ventolin HFA Inhaler -] 1 - 2 inh PO QID 07/17/14 Metoprolol Tartrate [Lopressor -] 50 mg PO BID 07/17/14 Morphine Sulfate 15 mg PO Q6H PRN 05/31/20 Hydrocortisone 1% Cream [Hytone 1% Cream -] 1 applic TP DAILY PRN 06/09/20 Mineral Oil/Hydrophil Petrolat [Aquaphor Healing Ointment] 50 gm TP PRN 06/09/20 Docusate Sodium [Colace] 100 mg PO BID #30 capsule 06/11/20 Fondaparinux Sodium [Arixtra] 7.5 mg SQ DAILY #30 syringe 06/11/20 Sennosides [Senna] 8.6 mg PO PRN #30 tablet 06/11/20 Fondaparinux Sodium 7.5 mg SQ DAILY ml 08/15/20 Morphine Sulfate 15 mg PO DAILY #10 tablet MDD 1 08/24/20 Epinephrine [Epipen 2-David] 0.3 mg IJ ASDIR #1 kit 08/25/20 Pimecrolimus [Elidel] 1 gm TP DAILY #100 cream..g. 08/25/20 Anemia: No Asthma: Yes Cancer: No Cardiac Disorders: Yes (mitral valve prolapse, DVTs, PE) CVA: No COPD: No CHF: No Dementia: No Diabetes: No GI Disorders: No Disorders: No HTN: Yes Hypercholesterolemia: No Liver Disease: No Seizures: No Thyroid Disease: No - Surgical History Abdominal Surgery: No Appendectomy: No Cardiac Surgery: Yes (ALONZO FILTER x2, loop recorder) Cholecystectomy: No Lung Surgery: No Neurologic Surgery: No Orthopedic Surgery: No - Immunization History Immunization Up to Date: Yes - Psycho-Social/Smoking History Smoking Status: No Smoking History: Never smoked Have you smoked in the past 12 months: No Number of Cigarettes Smoked Daily: 0 Review of Systems - Review of Systems Able to Perform ROS?: Yes Comments:: 08/25/20 00:00 GENERAL/CONSTITUTIONAL: No fever or chills. No weakness. HEAD, EYES, EARS, NOSE AND THROAT: No change in vision. No ear pain or discharge. No sore throat. CARDIOVASCULAR: No chest pain or shortness of breath. RESPIRATORY: No cough, wheezing, or hemoptysis. GASTROINTESTINAL: No nausea, vomiting, diarrhea or constipation. GENITOURINARY: No dysuria, frequency, or change in urination. MUSCULOSKELETAL: +groin pain with bilateral swelling. No joint pain. No neck or back pain. SKIN: No rash NEUROLOGIC: No headache, vertigo, loss of consciousness, or change in strength/sensation. ENDOCRINE: No increased thirst. No abnormal weight change. HEMATOLOGIC/LYMPHATIC: No anemia, easy bleeding, or history of blood clots. ALLERGIC/IMMUNOLOGIC: No hives or skin allergy. *Physical Exam - Vital Signs Last Vital Signs Temp Pulse Resp BP Pulse Ox 97 F L 73 18 149/72 98 08/24/20 23:19 08/24/20 23:19 08/24/20 23:19 08/24/20 23:19 08/24/20 23:19 - Physical Exam 08/25/20 00:00 GENERAL: Awake, alert, and fully oriented, in no acute distress HEAD: No signs of trauma EYES: PERRLA, EOMI, sclera anicteric, conjunctiva clear ENT: Auricles normal inspection, hearing grossly normal, nares patent, oropharynx clear without exudates. Moist mucosa NECK: Normal ROM, supple, no lymphadenopathy, JVD, or masses LUNGS: Breath sounds equal, clear to auscultation bilaterally. No wheezes, and no crackles HEART: Regular rate and rhythm, normal S1 and S2, no murmurs, rubs or gallops ABDOMEN: Soft, nontender, normoactive bowel sounds. No guarding, no rebound. No masses EXTREMITIES: +chronic groin pain and swelling. Normal range of motion, no edema. No clubbing or cyanosis. No cords NEUROLOGICAL: Cranial nerves II through XII grossly intact. Normal speech, normal gait SKIN: Warm, Dry, normal turgor, no rashes lesions noted. Medical Decision Making - Medical Decision Making 08/25/20 00:05 Pt tells me that during his last visit to our hospital, and admission, he has been able to get the atrixa approved. 08/25/20 01:20 Pt will be discharged. I filled his prescription for an epipen and elidel cream he will follow with pain med doc Rose, as well as his PMD in [place] Discharge - Discharge Information Problems reviewed: Yes Clinical Impression/Diagnosis: Chronic pain Condition: Improved Disposition: HOME - Additional Discharge Information Prescriptions: Pimecrolimus [Elidel] 1 gm TP DAILY #100 cream..g. Epinephrine [Epipen 2-David] 0.3 mg IJ ASDIR #1 kit Morphine Sulfate 15 mg PO DAILY #10 tablet MDD 1 - Follow up/Referral Referrals: Sherif Cano MD [Primary Care Provider] - Christopher Rose MD [Staff Physician] - - Patient Discharge Instructions - Post Discharge Activity Work/Back to School Note: Back to Work
[2020-08-25] MEDS ORDERED: MEPERIDINE HCL 25 MG/ML VIAL ONE (00:29)
== END 2020-08-25 00:58 | disposition home or self-care (01) ==
LOC: JER 23:18
PROC: 3E023NZ Introduction of Analgesics, Hypnotics, Sedatives into Muscle, Percutaneous Approach (ICD-10-PCS; principal; 2020-08-24)
DX: G89.29 Other chronic pain (principal)
CPT/HCPCS: 99284-25

== ENCOUNTER 2020-10-14 09:43 | Emergency (ER) | payer BC ==
[2020-10-14 10:19] VITALS: BP 166/107; PULSE 99; TEMP 98; BMI 23.8
[2020-10-14] MEDS ORDERED: FONDAPARINUX SODIUM 2.5 MG/0.5 ML DISP.SYRIN SQ ONE (10:44)
== END 2020-10-14 11:06 | disposition home or self-care (01) ==
LOC: JER 09:43
DX: T45.511A Poisoning by anticoagulants, accidental (unintentional), initial encounter (principal); Z91.19 Patient's noncompliance with other medical treatment and regimen; Z86.711 Personal history of pulmonary embolism; Z86.718 Personal history of other venous thrombosis and embolism
CPT/HCPCS: 99283-25

== ENCOUNTER 2020-10-27 21:38 | Emergency (ER) | payer BC ==
[2020-10-27 21:49] VITALS: BP 147/98; PULSE 98; TEMP 97.8; BMI 23.8
[2020-10-28] MEDS ORDERED: FONDAPARINUX SODIUM 5 MG/0.4 ML DISP.SYRIN SQ ONE (22:42)
== END 2020-10-27 23:54 | disposition left against medical advice (07) ==
LOC: JER 21:38
DX: R06.02 Shortness of breath (principal)
CPT/HCPCS: 99283-25; 99284-25

== ENCOUNTER 2020-11-30 10:35 | Emergency (ER) | payer BC, OTHER ==
[2020-11-30 10:55] VITALS: BP 177/108; PULSE 101; TEMP 97.9; BMI 23.8
== END 2020-11-30 12:12 | disposition home or self-care (01) ==
LOC: JER 10:35
DX: L03.115 Cellulitis of right lower limb (principal)
CPT/HCPCS: 99282-25

== ENCOUNTER 2020-12-20 09:20 | Emergency (ER) | payer BC ==
[2020-12-20 09:32] VITALS: BMI 23.8
[2020-12-20] MEDS ORDERED: FONDAPARINUX SODIUM 2.5 MG/0.5 ML DISP.SYRIN SQ STA (11:40)
[2020-12-20 12:48] VITALS: BP 144/89; PULSE 93
== END 2020-12-20 12:48 | disposition home or self-care (01) ==
LOC: JER 09:20
DX: G89.4 Chronic pain syndrome (principal); Z91.14 Patient's other noncompliance with medication regimen; Z76.5 Malingerer [conscious simulation]
CPT/HCPCS: 93005; 93010; 99283-25

== ENCOUNTER 2021-08-05 22:05 | Observation (INO) | payer BC, OTHER ==
[2021-08-05 22:13] VITALS: BMI 23.8
[2021-08-06 00:09] LABS: HEMATOCRIT 38.7 % (35.4-49); MCH 26.1 pg (25.7-33.7); MCHC 33.7 g/dl (32.0-35.9); MEAN CELL VOLUME 77.4 fl (80-96); MEAN PLT VOLUME 12.6 fl (7.5-11.1); PLATELET COUNT 82 10^3/uL (134-434); RDW 15.2 % (11.9-15.9)
[2021-08-06 00:28] LABS: CHLORIDE 106 mmol/L (98-107); SODIUM 135 mmol/L (136-145)
[2021-08-06 00:31] LABS: BLOOD UREA NITROGEN 11.6 mg/dL (7-18); CALCIUM 7.7 mg/dL (8.5-10.1); GLUCOSE,RANDOM 97 mg/dL (74-106)
[2021-08-06 00:32] LABS: ALBUMIN 2.5 g/dl (3.4-5.0); ANION GAP 9 MMOL/L (8-16); CO2 21 mmol/L (21-32)
[2021-08-06 00:34] LABS: CREATININE 0.9 mg/dL (0.55-1.3); SGOT/AST 43 U/L (15-37); SGPT/ALT 37 U/L (13-61)
[2021-08-06 00:35] LABS: BILIRUBIN,TOTAL 0.5 mg/dL (0.2-1); TOT PROT 7.8 g/dl (6.4-8.2)
[2021-08-06 00:36] LABS: ALK PHOS 84 U/L (45-117)
[2021-08-06 02:42] LABS: ANISOCYTOSIS 0; MACROCYTOSIS 0; OVALOCYTE 1+; PLATELET ESTIMATE DECREASED
[2021-08-06] MEDS ORDERED: SENNOSIDES 8.6MG TABLET (FP) PO SCH (06:00)
[2021-08-06] MEDS ORDERED: APIXABAN 5 MG TABLET ONE (09:22)
[2021-08-06] MEDS ORDERED: amLODIPine BESYLATE 5 MG TABLET (FP) ONE (09:22)
[2021-08-06] MEDS: amLODIPine BESYLATE 5 MG TABLET (FP) PO SCH (09:52)
[2021-08-06] MEDS ORDERED: APIXABAN 5 MG TABLET PO SCH (10:00)
[2021-08-06] MEDS ORDERED: FONDAPARINUX SODIUM 5 MG/0.4 ML DISP.SYRIN SQ SCH (10:00)
[2021-08-06] MEDS ORDERED: ALBUTEROL SO4 HFA INHALER IH SCH (14:15)
[2021-08-06] MEDS: FONDAPARINUX SODIUM 5 MG/0.4 ML DISP.SYRIN SQ SCH (16:08)
[2021-08-06] MEDS ORDERED: diphenhydrAMINE HCL 25 MG CAPSULE (FP) PO SCH ×2 (17:30→19:16)
[2021-08-06] MEDS ORDERED: ACETAMINOPHEN 1000 MG/100 ML VIAL (NON FORMULARY) IVPB PRN (18:16)
[2021-08-06] MEDS ORDERED: AZTREONAM 1 GM VIAL (RESTRICTED TO ID) ONE (20:59)
[2021-08-06] MEDS ORDERED: AZTREONAM 1 GM in DEXTROSE 5%-WATER - 50 ML IVPB SCH (21:00)
[2021-08-06] MEDS: VANCOMYCIN 1 GRAM (PRE-DOCKED) 1,000 MG/250 ML BAG IVPB SCH (21:48)
[2021-08-06] MEDS: AZTREONAM 1 GM in DEXTROSE 5%-WATER - 50 ML IVPB SCH (21:49)
[2021-08-07] MEDS: AZTREONAM 1 GM in DEXTROSE 5%-WATER - 50 ML IVPB SCH ×2 (03:00→10:03)
[2021-08-07] MEDS: amLODIPine BESYLATE 5 MG TABLET (FP) PO SCH ×2 (10:03→12:00)
[2021-08-07] MEDS: FONDAPARINUX SODIUM 5 MG/0.4 ML DISP.SYRIN SQ SCH ×2 (10:03→11:51)
[2021-08-07] MEDS ORDERED: PNEUMOC 13-VAL CONJ-DIP CRM/PF 0.5 ML DISP.SYRIN IM ONE (11:26)
[2021-08-07] MEDS ORDERED: PT OWN MED DRAWER 7, Y5N ONE ×2 (11:47→15:16)
[2021-08-07] MEDS: VANCOMYCIN 1 GRAM (PRE-DOCKED) 1,000 MG/250 ML BAG IVPB SCH ×2 (11:57→17:21)
[2021-08-07] MEDS ORDERED: diphenhydrAMINE HCL 25 MG CAPSULE (FP) PO PRN (13:55)
[2021-08-07] MEDS: AZTREONAM 2 GM in DEXTROSE 5%-WATER 100 ML IVPB SCH (15:43)
[2021-08-07] MEDS ORDERED: PNEUMOCOCCAL 23 VACCINE 0.5 ML VIAL IM ONE (17:00)
[2021-08-08 01:53] VITALS: BP 131/79; PULSE 91; TEMP 98.8
[2021-08-08] MEDS: AZTREONAM 2 GM in DEXTROSE 5%-WATER 100 ML IVPB SCH (03:21)
== END 2021-08-08 04:09 | disposition left against medical advice (07) ==
LOC: JER 22:05 → JERBED 08-06 02:17 → J4W 08-06 22:10 → J6S 08-07 12:09
PROVIDERS: ADMIT Internal Medicine; ATTEND Internal Medicine
PROC: 3E033GC Introduction of Other Therapeutic Substance into Peripheral Vein, Percutaneous Approach (ICD-10-PCS; principal; 2021-08-06)
PROC: 3E023GC Introduction of Other Therapeutic Substance into Muscle, Percutaneous Approach (ICD-10-PCS; 2021-08-06)
DX: J18.9 Pneumonia, unspecified organism (principal); E88.09 Other disorders of plasma-protein metabolism, not elsewhere classified; R19.7 Diarrhea, unspecified; D69.6 Thrombocytopenia, unspecified; D68.51 Activated protein C resistance; Z88.8 Allergy status to other drugs, medicaments and biological substances; J45.909 Unspecified asthma, uncomplicated; I10 Essential (primary) hypertension; Z09 Encounter for follow-up examination after completed treatment for conditions other than malignant neoplasm; Z86.718 Personal history of other venous thrombosis and embolism; Z91.14 Patient's other noncompliance with medication regimen; Z96.89 Presence of other specified functional implants; K64.9 Unspecified hemorrhoids; I34.1 Nonrheumatic mitral (valve) prolapse; R45.1 Restlessness and agitation; Z87.891 Personal history of nicotine dependence
CPT/HCPCS: 36415; 71046-TC-FY; 80053; 82550; 82553; 84484; 85025; 85379; 86140; 87040; 87324; 87449; 87804; 87899; 93005; 93010; 96372; 96374; 96375; 99285-25; C9803; G0378; U0003; U0005

== ENCOUNTER 2021-08-15 09:30 | Emergency (ER) | payer BC ==
[2021-08-15 09:38] VITALS: BP 151/89; PULSE 92; TEMP 97.9; BMI 23.8
[2021-08-15 14:26] LABS: BASO % 1.4 % (0-2.0); EOS % 4.5 % (0-4.5); HEMATOCRIT 38.7 % (35.4-49); MCH 26.1 pg (25.7-33.7); MCHC 33.6 g/dl (32.0-35.9); MEAN CELL VOLUME 77.8 fl (80-96); MEAN PLT VOLUME 12.1 fl (7.5-11.1); MONO % 9.6 % (3.8-10.2); NEUT % 59.5 % (42.8-82.8); PLATELET COUNT 144 10^3/uL (134-434); RBC 4.98 M/mm3 (4.00-5.60); RDW 15.1 % (11.9-15.9); WHITE BLOOD COUNT 4.6 K/mm3 (4.0-10.0)
[2021-08-15 14:41] LABS: CALCIUM 8.6 mg/dL (8.5-10.1)
[2021-08-15 14:42] LABS: ALBUMIN 2.8 g/dl (3.4-5.0); BLOOD UREA NITROGEN 16.6 mg/dL (7-18)
[2021-08-15 14:44] LABS: CREATININE 0.9 mg/dL (0.55-1.3)
[2021-08-15 14:46] LABS: BILIRUBIN,TOTAL 0.3 mg/dL (0.2-1); TOT PROT 8.4 g/dl (6.4-8.2)
== END 2021-08-15 16:31 | disposition home or self-care (01) ==
LOC: JER 09:30
DX: R05 Cough (principal)
CPT/HCPCS: 36415; 71046-TC-FY; 80053; 84484; 85025; 99284-25

== ENCOUNTER 2022-06-02 06:05 | Observation (INO) | payer BC, OTHER ==
[2022-06-02] MEDS ORDERED: morphine CARPU-JECT 4 MG/1 ML DISP.SYRIN IVPUSH ONE (09:26)
[2022-06-02] MEDS ORDERED: morphine SULFATE 4 MG/ML VIAL ONE (09:29)
[2022-06-02 09:35] LABS: BASO % 0.9 % (0-2.0); EOS % 2.4 % (0-4.5); LYMPH % 18.5 % (8-40); MCH 26.3 pg (25.7-33.7); MCHC 34.2 g/dl (32.0-35.9); MEAN CELL VOLUME 76.8 fl (80-96); MEAN PLT VOLUME 12.1 fl (7.5-11.1); MONO % 8.5 % (3.8-10.2); NEUT % 69.7 % (42.8-82.8); PLATELET COUNT 107 10^3/uL (134-434); RBC 5.34 M/mm3 (4.00-5.60); RDW 14.7 % (11.9-15.9); WHITE BLOOD COUNT 4.4 K/mm3 (4.0-10.0)
[2022-06-02 09:50] LABS: INR 1.07 (0.83-1.09); PROTHROMBIN TIME (PATIENT) 12.3 SEC (9.7-13.0)
[2022-06-02 09:55] LABS: CALCIUM 8.6 mg/dL (8.5-10.1)
[2022-06-02 09:56] LABS: ALBUMIN 3.7 g/dl (3.4-5.0); MAGNESIUM 2.2 mg/dL (1.8-2.4)
[2022-06-02 09:59] LABS: CREATININE 0.8 mg/dL (0.55-1.3)
[2022-06-02 10:00] LABS: BILIRUBIN,TOTAL 0.6 mg/dL (0.2-1)
[2022-06-02] MEDS ORDERED: POTASSIUM CHLORIDE TABS 20 MEQ TABLET.ER (FP) PO ONE ×2 (10:41→10:50)
[2022-06-02] MEDS: amLODIPine BESYLATE 5 MG TABLET (FP) PO SCH (12:16)
[2022-06-02] MEDS: FONDAPARINUX SODIUM 7.5 MG/0.6 ML SYRINGE SQ SCH (12:16)
[2022-06-02] MEDS ORDERED: amLODIPine BESYLATE 5 MG TABLET (FP) ONE (12:17)
[2022-06-02] MEDS ORDERED: diphenhydrAMINE HCL 25 MG CAPSULE (FP) PO PRN (16:33)
[2022-06-02] MEDS ORDERED: ACETAMINOPHEN 325 MG TABLET (FP) PO PRN (16:33)
[2022-06-02] MEDS ORDERED: diphenhydrAMINE HCL 25 MG CAPSULE (FP) PO ONE (16:43)
[2022-06-02] MEDS ORDERED: ACETAMINOPHEN 325 MG TABLET (FP) ONE (16:44)
[2022-06-02 18:00] VITALS: TEMP 97.9; BMI 26.3
[2022-06-02] MEDS ORDERED: amLODIPine BESYLATE 5 MG TABLET (FP) PO ONE (18:56)
[2022-06-03] MEDS: amLODIPine BESYLATE 5 MG TABLET (FP) PO SCH (09:07)
[2022-06-03] MEDS: FONDAPARINUX SODIUM 7.5 MG/0.6 ML SYRINGE SQ SCH (09:12)
[2022-06-03 11:33] VITALS: BP 157/97; PULSE 85
== END 2022-06-03 14:22 | disposition home or self-care (01) ==
LOC: JER 06:05 → INTOOBSV 10:36 → JERBED 10:36 → UNDOADMOB 10:36 → JERBED 11:05 → J8W 17:56
PROVIDERS: ADMIT Internal Medicine; ATTEND Nurse Practitioner Family
PROC: 3E023GC Introduction of Other Therapeutic Substance into Muscle, Percutaneous Approach (ICD-10-PCS; principal; 2022-06-02)
PROC: 3E033NZ Introduction of Analgesics, Hypnotics, Sedatives into Peripheral Vein, Percutaneous Approach (ICD-10-PCS; 2022-06-02)
DX: R06.02 Shortness of breath (principal); Z91.120 Patient's intentional underdosing of medication regimen due to financial hardship; D68.51 Activated protein C resistance; D68.59 Other primary thrombophilia; G89.29 Other chronic pain; I34.1 Nonrheumatic mitral (valve) prolapse; Z76.5 Malingerer [conscious simulation]; J45.909 Unspecified asthma, uncomplicated; I25.10 Atherosclerotic heart disease of native coronary artery without angina pectoris; I10 Essential (primary) hypertension; I25.2 Old myocardial infarction; Z86.718 Personal history of other venous thrombosis and embolism; R06.00 Dyspnea, unspecified; Z88.1 Allergy status to other antibiotic agents; D64.9 Anemia, unspecified; I82.409 Acute embolism and thrombosis of unspecified deep veins of unspecified lower extremity; Z72.89 Other problems related to lifestyle; Z88.8 Allergy status to other drugs, medicaments and biological substances
CPT/HCPCS: 36415; 71045-TC-FY; 80053; 83735; 85025; 85610; 85730; 93005; 93010; 96372; 96374; 99285-25; C9803-CS; G0378; U0003; U0005

== ENCOUNTER 2022-06-05 01:55 | Emergency (ER) | payer BC ==
[2022-06-05 02:10] VITALS: BP 142/76; PULSE 85; TEMP 98.7; BMI 29.2
[2022-06-05] MEDS ORDERED: FONDAPARINUX SODIUM 5 MG/0.4 ML DISP.SYRIN SQ STA (03:26)
[2022-06-05] MEDS ORDERED: FONDAPARINUX SODIUM 7.5 MG/0.6 ML SYRINGE SQ STA (03:29)
== END 2022-06-05 04:45 | disposition home or self-care (01) ==
LOC: JER 01:55
DX: R06.02 Shortness of breath (principal); Z91.14 Patient's other noncompliance with medication regimen; Z79.01 Long term (current) use of anticoagulants
CPT/HCPCS: 99283-25

== ENCOUNTER 2022-07-05 16:38 | Inpatient (IN) | payer BC ==
[2022-07-05 16:55] VITALS: PULSE 108; RESP 16; TEMP 99.1; BMI 23.8
[2022-07-05 16:57] VITALS: BP 164/101
[2022-07-05 19:10] LABS: BASO % 1.4 % (0-2.0); EOS % 2.8 % (0-4.5); HEMATOCRIT 41.8 % (35.4-49); HEMOGLOBIN 13.9 GM/dL (11.7-16.9); LYMPH % 26.6 % (8-40); MCHC 33.3 g/dl (32.0-35.9); MEAN PLT VOLUME 11.5 fl (7.5-11.1); MONO % 10.8 % (3.8-10.2); NEUT % 58.4 % (42.8-82.8); PLATELET COUNT 97 10^3/uL (134-434); RBC 5.36 M/mm3 (4.00-5.60); RDW 14.8 % (11.9-15.9); WHITE BLOOD COUNT 3.5 K/mm3 (4.0-10.0)
[2022-07-05 19:16] LABS: INR 1.06 (0.83-1.09); PROTHROMBIN TIME (PATIENT) 12.2 SEC (9.7-13.0)
[2022-07-05 19:19] LABS: ACTIVATED PTT 30.3 SECONDS (25.2-36.5)
[2022-07-05 19:33] LABS: ALBUMIN 3.5 g/dl (3.4-5.0); BLOOD UREA NITROGEN 16.7 mg/dL (7-18)
[2022-07-05 19:38] LABS: BILIRUBIN,TOTAL 0.3 mg/dL (0.2-1); TOT PROT 8.9 g/dl (6.4-8.2)
[2022-07-05] MEDS ORDERED: METHOCARBAMOL 500 MG TABLET PO ONE (20:57)
[2022-07-05] MEDS ORDERED: D5-1/2NS+20 MEQ KCL - 20 MEQ/1,000 ML INFUS.BAG IV SCH (21:15)
[2022-07-05] MEDS ORDERED: METHOCARBAMOL 500 MG TABLET ONE (21:43)
== END 2022-07-05 22:43 | disposition left against medical advice (07) | DRG 203 ==
LOC: JER 16:38 → JERBED 20:20
PROVIDERS: ADMIT Hospitalist; ATTEND Hospitalist
DX: R07.89 Other chest pain (principal); D68.51 Activated protein C resistance; D68.59 Other primary thrombophilia; I10 Essential (primary) hypertension; Z86.711 Personal history of pulmonary embolism; Z86.718 Personal history of other venous thrombosis and embolism; Z53.29 Procedure and treatment not carried out because of patient's decision for other reasons
CPT/HCPCS: 36415; 80053; 84484; 85025; 85610; 85730; 93005; 93010; 99285-25

== ENCOUNTER 2022-07-09 17:45 | Observation (INO) | payer BC ==
[2022-07-09 18:13] VITALS: BMI 23.8
[2022-07-09] MEDS ORDERED: morphine CARPU-JECT 2 MG/1 ML DISP.SYRIN IM ONE (20:45)
[2022-07-09] MEDS ORDERED: VANCOMYCIN 1 GM in D5W (PRE-DOCKED) 1,000 MG/250 ML IVPB ONE (21:27)
[2022-07-09] MEDS ORDERED: DOXYCYCLINE MONOHYDRATE 25 MG/5 ML SUSPENSION PO ONE (23:28)
[2022-07-10] MEDS ORDERED: DOXYCYCLINE HYCLATE 100 MG CAPSULE PO ONE ×3 (00:29→09:12)
[2022-07-10 01:18] LABS: BASO % 1.6 % (0-2.0); EOS % 9.8 % (0-4.5); HEMATOCRIT 40.1 % (35.4-49); HEMOGLOBIN 13.6 GM/dL (11.7-16.9); LYMPH % 30.9 % (8-40); MCH 26.7 pg (25.7-33.7); MEAN CELL VOLUME 78.5 fl (80-96); MEAN PLT VOLUME 12.2 fl (7.5-11.1); MONO % 13.8 % (3.8-10.2); NEUT % 43.9 % (42.8-82.8); PLATELET COUNT 96 10^3/uL (134-434); RBC 5.11 M/mm3 (4.00-5.60); RDW 14.7 % (11.9-15.9); WHITE BLOOD COUNT 3.2 K/mm3 (4.0-10.0)
[2022-07-10 01:32] LABS: INR 1.05 (0.83-1.09); PROTHROMBIN TIME (PATIENT) 12.1 SEC (9.7-13.0)
[2022-07-10 01:34] LABS: ACTIVATED PTT 32.9 SECONDS (25.2-36.5)
[2022-07-10 01:53] LABS: CALCIUM 8.6 mg/dL (8.5-10.1)
[2022-07-10 01:55] LABS: ALBUMIN 3.4 g/dl (3.4-5.0); BLOOD UREA NITROGEN 14.2 mg/dL (7-18)
[2022-07-10 01:57] LABS: CREATININE 0.9 mg/dL (0.55-1.3)
[2022-07-10 01:58] LABS: TOT PROT 8.7 g/dl (6.4-8.2)
[2022-07-10 02:00] LABS: BILIRUBIN,TOTAL 0.4 mg/dL (0.2-1)
[2022-07-10] MEDS ORDERED: ALBUTEROL SO4 HFA INHALER IH PRN (06:46)
[2022-07-10] MEDS ORDERED: ARTIFICIAL TEARS (POLYVINYL ALCOHOL) OPTH DROPS OU PRN (06:54)
[2022-07-10] MEDS ORDERED: amLODIPine BESYLATE 5 MG TABLET (FP) ONE (09:11)
[2022-07-10] MEDS ORDERED: METOPROLOL TARTRATE 50 MG TABLET (FP) ONE (09:12)
[2022-07-10] MEDS: amLODIPine BESYLATE 5 MG TABLET (FP) PO SCH (09:25)
[2022-07-10] MEDS: METOPROLOL TARTRATE 50 MG TABLET (FP) PO SCH ×2 (09:25→21:00)
[2022-07-10] MEDS: DOXYCYCLINE HYCLATE 100 MG CAPSULE PO SCH ×2 (09:25→21:00)
[2022-07-10] MEDS ORDERED: PATIENT'S OWN MEDICATION (NON-FORMULARY) (Dorzolamide/Timolol/Pf [Dorzolamide-Timolol 2%-0 OP SCH (10:00)
[2022-07-10] MEDS ORDERED: PATIENT'S OWN MEDICATION (NON-FORMULARY) (Dorzolamide/Timolol/Pf [Dorzolamide-Timolol 2%-0 OU SCH (12:59)
[2022-07-10] MEDS: FONDAPARINUX SODIUM 7.5 MG/0.6 ML SYRINGE SQ SCH (13:13)
[2022-07-10] MEDS: prednisoLONE ACETATE 1% OPHTH SUSP 5 ML BOTTLE OU SCH ×2 (13:14→21:01)
[2022-07-10] MEDS: TIMOLOL 0.5% OPHTHALMIC SOL 5 ML BOTTLE OU SCH ×2 (16:03→21:01)
[2022-07-10] MEDS: DORZOLAMIDE 2% HCL OPHTHALMIC SOLUTION 10 ML BOTTLE OU SCH ×2 (16:04→21:01)
[2022-07-11 06:29] VITALS: TEMP 98
[2022-07-11] MEDS: amLODIPine BESYLATE 5 MG TABLET (FP) PO SCH (09:46)
[2022-07-11] MEDS: METOPROLOL TARTRATE 50 MG TABLET (FP) PO SCH (09:46)
[2022-07-11] MEDS: DOXYCYCLINE HYCLATE 100 MG CAPSULE PO SCH (09:46)
[2022-07-11] MEDS: FONDAPARINUX SODIUM 7.5 MG/0.6 ML SYRINGE SQ SCH (09:56)
[2022-07-11] MEDS: prednisoLONE ACETATE 1% OPHTH SUSP 5 ML BOTTLE OU SCH (09:59)
[2022-07-11] MEDS: DORZOLAMIDE 2% HCL OPHTHALMIC SOLUTION 10 ML BOTTLE OU SCH (10:00)
[2022-07-11] MEDS: TIMOLOL 0.5% OPHTHALMIC SOL 5 ML BOTTLE OU SCH (10:00)
[2022-07-11 10:36] VITALS: BP 142/72; PULSE 64; RESP 16
[2022-07-11] MEDS ORDERED: GABAPENTIN 100 MG CAPSULE PO SCH (14:00)
== END 2022-07-11 11:15 | disposition home or self-care (01) ==
LOC: JER 17:45 → INTOOBSV 07-10 00:32 → JERBED 07-10 00:32 → UNDOADMOB 07-10 00:32 → JERBED 07-10 09:37 → J5S 07-10 09:37 → JERBED 07-10 10:15
PROVIDERS: ADMIT Hospitalist; ATTEND Internal Medicine
PROC: 3E023GC Introduction of Other Therapeutic Substance into Muscle, Percutaneous Approach (ICD-10-PCS; principal; 2022-07-10)
PROC: 3E033NZ Introduction of Analgesics, Hypnotics, Sedatives into Peripheral Vein, Percutaneous Approach (ICD-10-PCS; 2022-07-10)
DX: L03.116 Cellulitis of left lower limb (principal); M79.672 Pain in left foot; D64.9 Anemia, unspecified; J45.909 Unspecified asthma, uncomplicated; I10 Essential (primary) hypertension; Z86.718 Personal history of other venous thrombosis and embolism; I26.99 Other pulmonary embolism without acute cor pulmonale; I34.1 Nonrheumatic mitral (valve) prolapse; Z88.8 Allergy status to other drugs, medicaments and biological substances; D68.51 Activated protein C resistance; D68.59 Other primary thrombophilia; Z88.1 Allergy status to other antibiotic agents
CPT/HCPCS: 36415; 71046-TC-FY; 73630-TC-LT; 73700-TC-RT; 80053; 85025; 85610; 85730; 86850; 86900; 86901; 87040; 93005; 93010; 93971-TC; 99285-25; C9803-CS; G0378; U0003; U0005

== ENCOUNTER 2022-07-24 23:51 | Emergency (ER) | payer BC ==
[2022-07-25 00:16] VITALS: BP 174/102; PULSE 76; RESP 20; TEMP 98.9; BMI 29.0
== END 2022-07-25 07:05 | disposition home or self-care (01) ==
LOC: JER 23:51
DX: M79.671 Pain in right foot (principal); M79.672 Pain in left foot
CPT/HCPCS: 99281-25

== ENCOUNTER 2022-12-03 10:43 | Emergency (ER) | payer BC ==
[2022-12-03 10:55] VITALS: BP 165/90; PULSE 112; RESP 20; TEMP 98.6; BMI 23.8
[2022-12-03] MEDS ORDERED: ONDANSETRON *ODT* 4 MG TABLET SL ONE (12:44)
[2022-12-03] MEDS ORDERED: ONDANSETRON *ODT* 4 MG TABLET ONE (12:52)
== END 2022-12-03 14:00 | disposition home or self-care (01) ==
LOC: JER 10:43
DX: U07.1 COVID-19 (principal)
CPT/HCPCS: 0241U-QW; 71046-TC-FY; 99284-25

== ENCOUNTER 2023-03-01 16:36 | Emergency (ER) | payer BC ==
[2023-03-01 17:08] VITALS: BP 172/106; PULSE 81; RESP 18; TEMP 98.2; BMI 23.8
[2023-03-01] MEDS ORDERED: FONDAPARINUX SODIUM 5 MG/0.4 ML DISP.SYRIN SQ ONE (18:22)
[2023-03-01 18:29] LABS: BASO % 1.1 % (0-2.0); HEMATOCRIT 38.8 % (35.4-49); HEMOGLOBIN 13.7 GM/dL (11.7-16.9); LYMPH % 26.6 % (8-40); MCH 27.1 pg (25.7-33.7); MCHC 35.3 g/dl (32.0-35.9); MEAN CELL VOLUME 76.8 fl (80-96); MEAN PLT VOLUME 11.8 fl (7.5-11.1); MONO % 8.2 % (3.8-10.2); NEUT % 60.1 % (42.8-82.8); PLATELET COUNT 97 10^3/uL (134-434); RBC 5.05 M/mm3 (4.00-5.60); RDW 14.7 % (11.9-15.9)
[2023-03-01 18:35] LABS: INR 1.05 (0.83-1.09); PROTHROMBIN TIME (PATIENT) 12.2 SEC (9.7-13.0)
[2023-03-01 18:38] LABS: ACTIVATED PTT 36.5 SECONDS (25.2-36.5)
[2023-03-01 18:54] LABS: BLOOD UREA NITROGEN 17.5 mg/dL (7-18); CALCIUM 8.8 mg/dL (8.5-10.1)
[2023-03-01 18:55] LABS: ALBUMIN 3.6 g/dl (3.4-5.0)
[2023-03-01 18:57] LABS: CREATININE 0.8 mg/dL (0.55-1.3)
[2023-03-01 18:59] LABS: BILIRUBIN,TOTAL 0.4 mg/dL (0.2-1); TOT PROT 8.6 g/dl (6.4-8.2)
[2023-03-01] MEDS ORDERED: FONDAPARINUX SODIUM 7.5 MG/0.6 ML SYRINGE SQ ONE (19:00)
== END 2023-03-01 20:08 | disposition left against medical advice (07) ==
LOC: JER 16:36
PROC: 3E023GC Introduction of Other Therapeutic Substance into Muscle, Percutaneous Approach (ICD-10-PCS; principal; 2023-03-01)
DX: M79.604 Pain in right leg (principal); M79.605 Pain in left leg; R60.0 Localized edema; Z86.718 Personal history of other venous thrombosis and embolism; Z20.822 Contact with and (suspected) exposure to COVID-19
CPT/HCPCS: 0241U-QW; 36415; 80053; 82550; 82553; 84484; 85025; 85610; 85730; 86850; 86900; 86901; 99284-25

== ENCOUNTER 2023-03-02 13:38 | Emergency (ER) | payer BC ==
[2023-03-02 14:19] VITALS: BP 166/94; PULSE 86; RESP 18; TEMP 97.8; BMI 23.8
== END 2023-03-02 18:01 | disposition home or self-care (01) ==
LOC: JER 13:38
DX: I82.403 Acute embolism and thrombosis of unspecified deep veins of lower extremity, bilateral (principal)
CPT/HCPCS: 93970-TC; 99285-25

== ENCOUNTER 2023-06-02 19:44 | Emergency (ER) | payer BC, OTHER ==
[2023-06-02 20:02] VITALS: BP 148/96; PULSE 101; RESP 18; TEMP 98.1; BMI 23.8
== END 2023-06-02 22:50 | disposition left against medical advice (07) ==
LOC: JER 19:44 → JERFT 19:44
DX: M79.661 Pain in right lower leg (principal); Z53.29 Procedure and treatment not carried out because of patient's decision for other reasons
CPT/HCPCS: 99281-25

== ENCOUNTER 2023-10-03 20:24 | Emergency (ER) | payer BC ==
[2023-10-03 20:31] VITALS: BP 153/92; PULSE 91; RESP 18; TEMP 98.1; BMI 23.8
[2023-10-03] MEDS ORDERED: MEPERIDINE HCL CARPU-JECT 50 MG/1 ML DISP.SYRIN IM ONE (21:50)
[2023-10-03] MEDS ORDERED: MEPERIDINE HCL 25 MG/ML VIAL IM ONE (22:00)
[2023-10-03] MEDS ORDERED: NYSTATIN POWDER 100,000 UNITS/GM - 15 GM TOPICAL POWDER TP ONE (22:54)
== END 2023-10-04 01:49 | disposition home or self-care (01) ==
LOC: JER 20:24
PROC: 3E023GC Introduction of Other Therapeutic Substance into Muscle, Percutaneous Approach (ICD-10-PCS; principal; 2023-10-03)
DX: M54.50 Low back pain, unspecified (principal); B35.3 Tinea pedis; G89.29 Other chronic pain
CPT/HCPCS: 93970-TC; 99284-25

== ENCOUNTER 2023-10-05 14:04 | Emergency (ER) | payer BC ==
[2023-10-05 14:24] VITALS: BP 140/97; PULSE 86; RESP 20; TEMP 98.4; BMI 23.8
[2023-10-05] MEDS ORDERED: morphine SULFATE 4 MG/ML VIAL IVPUSH ONE (17:47)
[2023-10-05] MEDS ORDERED: FONDAPARINUX SODIUM 5 MG/0.4 ML DISP.SYRIN SQ SCH (18:00)
[2023-10-05] MEDS ORDERED: FONDAPARINUX SODIUM 2.5 MG/0.5 ML DISP.SYRIN SQ SCH (18:00)
[2023-10-05] MEDS ORDERED: morphine SULFATE 4 MG/ML VIAL ONE (19:09)
== END 2023-10-05 19:10 | disposition left against medical advice (07) ==
LOC: JER 14:04
PROC: 3E033GC Introduction of Other Therapeutic Substance into Peripheral Vein, Percutaneous Approach (ICD-10-PCS; principal; 2023-10-05)
DX: R07.9 Chest pain, unspecified (principal); R06.02 Shortness of breath
CPT/HCPCS: 93005; 93010; 99284-25

== ENCOUNTER 2023-11-28 16:28 | Observation (INO) | payer BC ==
[2023-11-28 16:58] VITALS: BMI 23.0
[2023-11-28 18:21] LABS: BASO % 2.2 % (0-2.0); EOS % 8.6 % (0-4.5); HEMATOCRIT 36.4 % (35.4-49); HEMOGLOBIN 11.9 GM/dL (11.7-16.9); LYMPH % 33.3 % (8-40); MCH 24.1 pg (25.7-33.7); MCHC 32.8 g/dl (32.0-35.9); MEAN CELL VOLUME 73.6 fl (80-96); MEAN PLT VOLUME 11.8 fl (7.5-11.1); MONO % 15.9 % (3.8-10.2); PLATELET COUNT 89 10^3/uL (134-434); RBC 4.95 M/mm3 (4.00-5.60); RDW 15.3 % (11.9-15.9); WHITE BLOOD COUNT 3.5 K/mm3 (4.0-10.0)
[2023-11-28 18:21] LABS: INR 0.97 (0.83-1.09); PROTHROMBIN TIME (PATIENT) 11.3 SEC (9.7-13.0)
[2023-11-28 18:24] LABS: ACTIVATED PTT 34.4 SECONDS (25.2-36.5)
[2023-11-28 18:48] LABS: POTASSIUM 3.6 mmol/L (3.5-5.1)
[2023-11-28 18:50] LABS: CALCIUM 8.8 mg/dL (8.5-10.1)
[2023-11-28 18:51] LABS: ALBUMIN 3.4 g/dl (3.4-5.0); BLOOD UREA NITROGEN 20.5 mg/dL (7-18)
[2023-11-28 18:54] LABS: CREATININE 0.9 mg/dL (0.55-1.3)
[2023-11-28 18:56] LABS: BILIRUBIN,TOTAL 0.3 mg/dL (0.2-1); TOT PROT 8.6 g/dl (6.4-8.2)
[2023-11-28] MEDS ORDERED: FONDAPARINUX SODIUM 7.5 MG/0.6 ML SYRINGE SQ ONE (19:07)
[2023-11-28] MEDS ORDERED: morphine CARPU-JECT 2 MG/1 ML DISP.SYRIN IM ONE (23:03)
[2023-11-29] MEDS ORDERED: METOPROLOL TARTRATE 50 MG TABLET (FP) PO ONE (00:30)
[2023-11-29 06:40] LABS: BASO % 2.1 % (0-2.0); HEMOGLOBIN 12.4 GM/dL (11.7-16.9); LYMPH % 41.1 % (8-40); MCH 24.7 pg (25.7-33.7); MCHC 33.4 g/dl (32.0-35.9); MEAN PLT VOLUME 12.6 fl (7.5-11.1); MONO % 14.2 % (3.8-10.2); NEUT % 33.6 % (42.8-82.8); PLATELET COUNT 95 10^3/uL (134-434); RDW 15.4 % (11.9-15.9); WHITE BLOOD COUNT 3.4 K/mm3 (4.0-10.0)
[2023-11-29 07:04] LABS: POTASSIUM 3.7 mmol/L (3.5-5.1)
[2023-11-29 07:08] LABS: CALCIUM 8.7 mg/dL (8.5-10.1)
[2023-11-29 07:13] LABS: CREATININE 1.1 mg/dL (0.55-1.3)
[2023-11-29] MEDS ORDERED: MEPERIDINE HCL 25 MG/ML VIAL IM ONE ×2 (09:30→22:12)
[2023-11-29] MEDS ORDERED: amLODIPine BESYLATE 5 MG TABLET (FP) ONE (09:31)
[2023-11-29] MEDS: amLODIPine BESYLATE 5 MG TABLET (FP) PO SCH (09:38)
[2023-11-29] MEDS ORDERED: ASPIRIN COATED 81 MG TABLET.EC ONE (14:13)
[2023-11-29] MEDS: ASPIRIN COATED 81 MG TABLET.EC PO SCH (14:15)
[2023-11-29] MEDS ORDERED: FONDAPARINUX SODIUM 7.5 MG/0.6 ML SYRINGE SQ ONE (19:07)
[2023-11-29] MEDS: METOPROLOL TARTRATE 50 MG TABLET (FP) PO SCH (22:23)
[2023-11-29] MEDS: ATORVASTATIN CA 40 MG TABLET (FP) PO SCH (22:23)
[2023-11-29] MEDS ORDERED: METOPROLOL TARTRATE 50 MG TABLET (FP) ONE (22:25)
[2023-11-29] MEDS ORDERED: ATORVASTATIN CA 40 MG TABLET (FP) ONE (22:26)
[2023-11-30] MEDS: METOPROLOL TARTRATE 50 MG TABLET (FP) PO SCH ×2 (09:11→23:30)
[2023-11-30] MEDS: amLODIPine BESYLATE 5 MG TABLET (FP) PO SCH (09:11)
[2023-11-30] MEDS: ASPIRIN COATED 81 MG TABLET.EC PO SCH (09:11)
[2023-11-30] MEDS ORDERED: morphine SULFATE IMMEDIATE RELEASE 30 MG TAB PO PRN (09:24)
[2023-11-30 14:45] VITALS: BP 128/80; PULSE 74; RESP 18; TEMP 98
[2023-11-30] MEDS ORDERED: METOPROLOL TARTRATE 50 MG TABLET (FP) ONE (23:17)
[2023-11-30] MEDS: ATORVASTATIN CA 40 MG TABLET (FP) PO SCH (23:30)
[2023-12-01] MEDS ORDERED: FONDAPARINUX SODIUM 7.5 MG/0.6 ML SYRINGE SQ SCH (10:00)
== END 2023-12-01 08:30 | disposition left against medical advice (07) ==
LOC: JER 16:28 → JERBED 23:17 → INTOOBSV 11-30 09:21 → OBSVTOIN 11-30 09:21
PROVIDERS: ADMIT Internal Medicine; ATTEND Internal Medicine
PROC: 3E023GC Introduction of Other Therapeutic Substance into Muscle, Percutaneous Approach (ICD-10-PCS; principal; 2023-11-28)
PROC: 3E023NZ Introduction of Analgesics, Hypnotics, Sedatives into Muscle, Percutaneous Approach (ICD-10-PCS; 2023-11-28)
DX: R07.9 Chest pain, unspecified (principal); E54 Ascorbic acid deficiency; I25.10 Atherosclerotic heart disease of native coronary artery without angina pectoris; E56.8 Deficiency of other vitamins; D68.59 Other primary thrombophilia; D68.51 Activated protein C resistance; D75.829 Heparin-induced thrombocytopenia, unspecified; I11.0 Hypertensive heart disease with heart failure; J44.9 Chronic obstructive pulmonary disease, unspecified; Z86.718 Personal history of other venous thrombosis and embolism; Z86.711 Personal history of pulmonary embolism; F17.210 Nicotine dependence, cigarettes, uncomplicated; Z88.8 Allergy status to other drugs, medicaments and biological substances
CPT/HCPCS: 0241U-QW; 36415; 71045-TC-FY; 80048; 80053; 84484; 85025; 85610; 85730; 86850; 86900; 86901; 93005; 93010; 96372; 99285-25; G0378

== ENCOUNTER 2023-12-17 23:55 | Emergency (ER) | payer BC ==
[2023-12-18 00:04] VITALS: BP 150/88; PULSE 95; RESP 16; TEMP 97.9; BMI 30.9
== END 2023-12-18 03:45 | disposition left against medical advice (07) ==
LOC: JER 23:55
DX: R10.30 Lower abdominal pain, unspecified (principal)
CPT/HCPCS: 93970-TC; 99284-25

== ENCOUNTER 2024-06-17 20:19 | Inpatient (IN) | payer BC ==
[2024-06-17 20:24] VITALS: PULSE 105; RESP 18; TEMP 98.8; BMI 23.0
[2024-06-18] MEDS ORDERED: FONDAPARINUX SODIUM 5 MG/0.4 ML DISP.SYRIN SQ ONE ×2 (04:17→04:18)
[2024-06-18 04:52] VITALS: BP 163/100
[2024-06-18] MEDS ORDERED: FONDAPARINUX SODIUM 5 MG/0.4 ML DISP.SYRIN SQ SCH (05:36)
[2024-06-18] MEDS: FONDAPARINUX SODIUM 5 MG/0.4 ML DISP.SYRIN SQ SCH (06:59)
== END 2024-06-18 12:22 | disposition left against medical advice (07) | DRG 300 ==
LOC: JER 20:19 → JERBED 06-18 01:16 → J5S 06-18 05:48
PROVIDERS: ADMIT Internal Medicine; ATTEND Internal Medicine
DX: I82.411 Acute embolism and thrombosis of right femoral vein (principal); D68.51 Activated protein C resistance; D68.59 Other primary thrombophilia; Z59.00 Homelessness unspecified; I10 Essential (primary) hypertension; J45.909 Unspecified asthma, uncomplicated; I82.811 Embolism and thrombosis of superficial veins of right lower extremity
CPT/HCPCS: 93970-TC; 99285-25

== ENCOUNTER 2024-06-20 11:51 | Observation (INO) | payer BC ==
[2024-06-20 11:59] VITALS: BMI 23.0
[2024-06-20] MEDS ORDERED: LIDOCAINE HCL 1%, 10 MG/ML (20ML VIAL) ONE (15:04)
[2024-06-20 15:41] LABS: BASO % 1.2 % (0-2.0); EOS % 5.6 % (0-4.5); HEMATOCRIT 34.3 % (35.4-49); HEMOGLOBIN 11.4 GM/dL (11.7-16.9); LYMPH % 25.7 % (8-40); MCH 24.2 pg (25.7-33.7); MCHC 33.2 g/dl (32.0-35.9); MEAN CELL VOLUME 72.9 fl (80-96); MEAN PLT VOLUME 11.4 fl (7.5-11.1); MONO % 14.4 % (3.8-10.2); NEUT % 53.1 % (42.8-82.8); PLATELET COUNT 125 10^3/uL (134-434); WHITE BLOOD COUNT 4.4 K/mm3 (4.0-10.0)
[2024-06-20 15:47] LABS: INR 0.99 (0.83-1.09); PROTHROMBIN TIME (PATIENT) 11.4 SEC (9.7-13.0)
[2024-06-20] MEDS ORDERED: morphine SULFATE 4 MG/ML VIAL ONE (15:47)
[2024-06-20 15:49] LABS: ACTIVATED PTT 26.1 SECONDS (25.2-36.5)
[2024-06-20] MEDS: morphine CARPU-JECT 4 MG/1 ML DISP.SYRIN IVPUSH ONE (15:56)
[2024-06-20 16:04] LABS: POTASSIUM 3.9 mmol/L (3.5-5.1)
[2024-06-20 16:05] LABS: CALCIUM 9.2 mg/dL (8.5-10.1)
[2024-06-20 16:06] LABS: ALBUMIN 3.4 g/dl (3.4-5.0)
[2024-06-20 16:11] LABS: BILIRUBIN,TOTAL 0.4 mg/dL (0.2-1)
[2024-06-20] MEDS ORDERED: diphenhydrAMINE HCL 25 MG CAPSULE (FP) PO ONE (21:45)
[2024-06-20] MEDS: MEPERIDINE HCL 25 MG/ML VIAL IM ONE (21:54)
[2024-06-20] MEDS: VANCOMYCIN PREMIX 1.5 GM 1,500 MG/300 ML BAG IVPB ONE (22:17)
[2024-06-20] MEDS: VANCOMYCIN HCL 1,500 MG in DEXTROSE 5%-WATER - 500 ML IVPB ONE (22:18)
[2024-06-20] MEDS: MEPERIDINE HCL 50 MG TABLET PO ONE (22:25)
[2024-06-20] MEDS: MEPERIDINE HCL 25 MG/ML VIAL IVPUSH ONE (22:25)
[2024-06-20] MEDS: diphenhydrAMINE HCL 25 MG CAPSULE (FP) PO ONE (22:26)
[2024-06-21 00:33] LABS: ERYTHROCYTE SEDIMENTATION RATE 28 mm/hr (0-20)
[2024-06-21] MEDS ORDERED: morphine SULFATE 4 MG/ML VIAL IVPUSH PRN (02:15)
[2024-06-21] MEDS: MEPERIDINE HCL 25 MG/ML VIAL IM ONE ×2 (03:54→12:17)
[2024-06-21] MEDS: FONDAPARINUX SODIUM 7.5 MG/0.6 ML SYRINGE SQ SCH (08:01)
[2024-06-21] MEDS: MEPERIDINE HCL 25 MG/ML VIAL IVPUSH ONE (09:05)
[2024-06-21] MEDS ORDERED: MEROPENEM 500 MG in DEXTROSE 5%-WATER 100 ML IVPB SCH (10:00)
[2024-06-21] MEDS: FONDAPARINUX SODIUM 7.5 MG/0.6 ML SYRINGE SQ ONE (12:20)
[2024-06-21] MEDS: VANCOMYCIN 1,000 MG in DEXTROSE 5%-WATER - 250 ML IVPB SCH (15:53)
[2024-06-21] MEDS: MEROPENEM 500 MG in DEXTROSE 5%-WATER 100 ML IVPB SCH (15:54)
[2024-06-21] MEDS: AZTREONAM 1 GM in DEXTROSE 5%-WATER - 50 ML IVPB SCH (17:18)
[2024-06-21] MEDS: VANCOMYCIN/WATER FOR INJ (PEG) 1,000 MG/200 ML BAG IVPB SCH (18:14)
[2024-06-21] MEDS ORDERED: VANCOMYCIN/WATER FOR INJ (PEG) 1,000 MG/200 ML BAG IVPB SCH (22:00)
[2024-06-22] MEDS: diphenhydrAMINE HCL 25 MG CAPSULE (FP) PO PRN (01:18)
[2024-06-22] MEDS: FONDAPARINUX SODIUM 7.5 MG/0.6 ML SYRINGE SQ SCH (15:09)
[2024-06-23 14:13] VITALS: RESP 18
[2024-06-24 06:31] VITALS: BP 147/83; PULSE 71; TEMP 97.7
== END 2024-06-24 07:42 | disposition left against medical advice (07) ==
LOC: JER 11:51 → JERBED 16:21 → J7W 23:52
PROVIDERS: ADMIT Internal Medicine; ATTEND Nurse Practitioner
PROC: 3E03329 Introduction of Other Anti-infective into Peripheral Vein, Percutaneous Approach (ICD-10-PCS; principal; 2024-06-20)
PROC: 3E033GC Introduction of Other Therapeutic Substance into Peripheral Vein, Percutaneous Approach (ICD-10-PCS; 2024-06-20)
PROC: 3E023GC Introduction of Other Therapeutic Substance into Muscle, Percutaneous Approach (ICD-10-PCS; 2024-06-20)
PROC: 3E023NZ Introduction of Analgesics, Hypnotics, Sedatives into Muscle, Percutaneous Approach (ICD-10-PCS; 2024-06-20)
PROC: 3E033NZ Introduction of Analgesics, Hypnotics, Sedatives into Peripheral Vein, Percutaneous Approach (ICD-10-PCS; 2024-06-20)
DX: I82.401 Acute embolism and thrombosis of unspecified deep veins of right lower extremity (principal); T81.49XA Infection following a procedure, other surgical site, initial encounter; D68.2 Hereditary deficiency of other clotting factors; D68.59 Other primary thrombophilia; J45.909 Unspecified asthma, uncomplicated; Z86.718 Personal history of other venous thrombosis and embolism; Z91.148 Patient's other noncompliance with medication regimen for other reason
CPT/HCPCS: 36415; 73590-TC-LT-FY; 73590-TC-RT-FY; 73630-TC-LT; 73630-TC-RT-FY; 80053; 85025; 85610; 85651; 85730; 86140; 96365; 96367; 96372; 96375; 96376; 99285-25; G0378

== ENCOUNTER 2024-06-26 01:24 | Emergency (ER) | payer BC, OTHER ==
[2024-06-26 01:38] VITALS: BP 153/93; PULSE 94; RESP 18; TEMP 98.3; BMI 23.0
[2024-06-26] MEDS: MEPERIDINE HCL 25 MG/ML VIAL IM ONE ×2 (02:44)
[2024-06-26] MEDS: FONDAPARINUX SODIUM 7.5 MG/0.6 ML SYRINGE SQ SCH (03:20)
[2024-06-26] MEDS ORDERED: FONDAPARINUX SODIUM 5 MG/0.4 ML DISP.SYRIN SQ SCH (10:00)
== END 2024-06-26 06:24 | disposition home or self-care (01) ==
LOC: JER 01:24
PROC: 3E023NZ Introduction of Analgesics, Hypnotics, Sedatives into Muscle, Percutaneous Approach (ICD-10-PCS; principal; 2024-06-26)
DX: M79.671 Pain in right foot (principal); M79.672 Pain in left foot; L08.9 Local infection of the skin and subcutaneous tissue, unspecified
CPT/HCPCS: 99284-25

== ENCOUNTER 2024-06-28 12:10 | Emergency (ER) | payer BC ==
[2024-06-28 12:15] VITALS: BP 146/84; PULSE 85; RESP 16; TEMP 97.5; BMI 23.8
[2024-06-29] MEDS ORDERED: FONDAPARINUX SODIUM 5 MG/0.4 ML DISP.SYRIN SQ SCH (10:00)
== END 2024-06-28 13:04 | disposition left against medical advice (07) ==
LOC: JER 12:10
DX: M79.672 Pain in left foot (principal); R50.9 Fever, unspecified
CPT/HCPCS: 99281-25

== ENCOUNTER 2024-06-28 20:13 | Emergency (ER) | payer BC ==
[2024-06-28 20:24] VITALS: RESP 18; BMI 23.8
[2024-06-28 22:39] LABS: HEMATOCRIT 37.9 % (35.4-49); HEMOGLOBIN 11.9 G/dL (11.7-16.9); MCH 23.9 pg (25.7-33.7); MCHC 31.5 g/dl (32.0-35.9); MEAN CELL VOLUME 75.7 fl (80-96); MEAN PLT VOLUME 12.4 fl (7.5-11.1); PLATELET COUNT 113.1 10^3/uL (134-434); RDW 17.6 % (11.9-15.9); WHITE BLOOD COUNT 3.5 10^3/uL (4.0-10.8)
[2024-06-28] MEDS: MEPERIDINE HCL 25 MG/ML VIAL IM ONE (22:54)
[2024-06-28 22:59] LABS: BILIRUBIN,TOTAL 0.5 mg/dl (0.2-1); CALCIUM 9.3 mg/dl (8.5-10.1); CREATININE 0.9 mg/dl (0.6-1.3); POTASSIUM 3.5 mmol/L (3.5-5.1); TOT PROT 8.6 g/dl (6.4-8.2)
[2024-06-28 23:58] VITALS: BP 158/89; PULSE 66; TEMP 97.7
== END 2024-06-29 00:09 | disposition home or self-care (01) ==
LOC: FER 20:13
PROC: 3E023NZ Introduction of Analgesics, Hypnotics, Sedatives into Muscle, Percutaneous Approach (ICD-10-PCS; principal; 2024-06-28)
DX: M79.672 Pain in left foot (principal); G89.29 Other chronic pain
CPT/HCPCS: 36415; 71045-TC-FY; 73630-TC-LT; 80053; 85027; 87040; 99284-25

== ENCOUNTER 2024-08-11 00:18 | Emergency (ER) | payer BC ==
[2024-08-11 00:28] VITALS: BP 173/101; PULSE 98; RESP 20; TEMP 98.2; BMI 23.8
== END 2024-08-11 00:46 | disposition home or self-care (01) ==
LOC: JER 00:18
DX: M79.672 Pain in left foot (principal)
CPT/HCPCS: 99282-25

== ENCOUNTER 2024-12-18 19:56 | Emergency (ER) | payer BC ==
[2024-12-18 20:02] VITALS: BP 166/101; PULSE 96; RESP 18; TEMP 98.8; BMI 23.8
[2024-12-18] MEDS: MEPERIDINE HCL 25 MG/ML VIAL IM ONE (22:58)
[2024-12-19] MEDS: MEPERIDINE HCL CARPU-JECT 25 MG/1 ML DISP.SYRIN IM ONE (00:17)
[2024-12-19] MEDS: MEPERIDINE HCL 25 MG/ML VIAL IM ONE (00:18)
== END 2024-12-19 07:17 | disposition home or self-care (01) ==
LOC: JERFT 19:56 → JER 19:56
PROC: 3E023NZ Introduction of Analgesics, Hypnotics, Sedatives into Muscle, Percutaneous Approach (ICD-10-PCS; principal; 2024-12-18)
PROC: 3E023NZ Introduction of Analgesics, Hypnotics, Sedatives into Muscle, Percutaneous Approach (ICD-10-PCS; 2024-12-18)
DX: M79.661 Pain in right lower leg (principal); M79.662 Pain in left lower leg; R10.31 Right lower quadrant pain
CPT/HCPCS: 93970-TC; 99284-25